=== PATIENT | male | born 1965 | race African-American/Black ===

== ENCOUNTER → 2020-08-12 10:51 | Outpatient (REF) | payer MEDICARE, MEDICAID, SELFPAY ==
--- NOTE | 2020-08-12 10:58 | CA_ITS ---
Acquisition Time: 2020-08-12 11:14:22 Total Exercise Time: 00:08:39 Test Indications: CP Medications: SEE CHART Protocol: NANDINI Max HR: 141 BPM 83% of Pred: 168 BPM Max BP: 172/088 mmHG Max Work Load: 10.1 METS Exercise stress ECHO using Nandini protocol total of 8 min 39 sec. METS. 10.1. Pt tolerated well, denies any anginal sx. EKG with no arrhythmias, no ischemic changes. EHO images taken at rest and imediately post peak exercise HR achieved. 86 %. THR. Definity IV used. Normotensive response to exercise. Test reviewed with Dr. Gupta STRESS ECHO : Technique : Images were obtained at rest and immediately post exercise within 36 seconds. Definity contrast was used to enhance endocardial definition. Images were obtained in multiple views and compared side to side. Findings : At rest images were of excellent quality. LV systolic function is normal with normal wallmotion. Post exercise images are of adeuqate quality. There is appropriate augmentation of overall LV systolic function with no regional wall motion abnormality. Conclusion : Stress echo negative for ischemia Referred By: Cecilio Ramirez Overread By: SARBJIT DEXTER MD
== END ==
LOC: HO.CARD 10:51
PROVIDERS: PCP Nurse Practitioner Family; Visit Provider Nurse Practitioner Family
DX: R07.89 Other chest pain (principal)
CPT/HCPCS: 93350; Q9957

== ENCOUNTER 2021-09-14 08:22 | Outpatient (REF) | payer OTHER, SELFPAY ==
[2021-09-14 11:50] LABS: Alanine Aminotransferase 38 U/L (0-40); Albumin Level 4.4 g/dL (3.5-5.0); Alkaline Phosphatase 70 U/L (39-117); Anion Gap 12 (12-20); Aspartate Amino Transferase 31 U/L (5-37); Bilirubin Total 0.6 mg/dL (0.0-1.0); Blood Urea Nitrogen 17 mg/dL (9-16); Calcium 9.6 mg/dL (8.4-10.2); Carbon Dioxide 26 mmol/L (22-29); Chloride 108 mmol/L (96-108); Cholesterol 213 mg/dL; Estimated Glomerular Filt Rate > 60; Glucose Fasting 91 mg/dL (60-99); HDL Cholesterol 56 mg/dL; LDL Cholesterol Calculated 126 mg/dl; Potassium 4.3 mmol/L (3.3-5.1); Sodium 142 mmol/L (135-145); Triglycerides 158 mg/dL
[2021-09-14 11:57] LABS: Prostate Specific Antigen Scr 0.77 ng/mL (<0.05-4.0); TSH reflex Free T4 0.74 uIU/mL (0.32-4.0)
== END 2021-09-14 08:23 | disposition home or self-care (01) ==
LOC: HO.HMGCLDS 08:22
PROVIDERS: PCP Nurse Practitioner Family; Visit Provider Nurse Practitioner Family
DX: Z12.5 Encounter for screening for malignant neoplasm of prostate (principal); R07.89 Other chest pain; I10 Essential (primary) hypertension
CPT/HCPCS: 36415; 80053; 80061; 84153; 84443

== ENCOUNTER → 2023-03-27 08:34 | Outpatient (REF) | payer OTHER, SELFPAY ==
--- NOTE | ~2023-03-27 | NM_ITS ---
Myocardial perfusion study Indication: Chest pain to evaluate for myocardial ischemia Technique: The patient was brought in for a Lexiscan perfusion study on 03/27/2023. Patient performed low-level exercise and was injected 0.4 mg of Lexiscan intravenously. Within a minute of injection, 25 mCi of sestamibi was given intravenously. Images were obtained using the SPECT gamma camera interlaced with the gating device. Images were obtained in supine position. Resting perfusion study was performed on 03/29/2023. Patient was administered 25 mCi of sestamibi intravenously at rest. Images were then obtained in supine position. Images obtained with and without CT attenuation. Total DLP 78 mGy-cm. Images were processed with the software and compared side to side in short axis, horizontal long axis and vertical long axis views. Findings: Both stress and rest perfusion study is suboptimal due to intense subdiaphragmatic uptake interfering with inferior wall uptake The stress perfusion study showed non attenuated images show mildly reduced uptake in the inferoseptum and basal and mid inferior wall of the LV myocardium. Remainder of the LV myocardium is normally perfused. Attenuation corrected images show mildly reduced uptake in the anterior wall and moderately reduced uptake in the apex of the LV myocardium.. The gated study shows normal LV systolic function with calculated LVEF of 65%. LV cavity is normal in size. The gated study shows normal systolic wall thickening and contraction of segments. Resting study shows non attenuated images show improved uptake in the septum and inferior wall of the LV myocardium. Attenuation corrected images show no change in perfusion pattern.. Gating at rest reveals normal systolic wall motion with ejection fraction at 48%. The findings are consistent with possible inferoseptal and inferior wall ischemia.. NM/NM cardiolite stress test Impression: 1. Myocardial perfusion imaging study shows equivocal for inferoseptal and inferior ischemia 2. Gated LVEF is 65% 3. Transient ischemic dilatation not present EKG is nondiagnostic for ischemia
--- NOTE | 2023-03-27 09:56 | CA_ITS ---
Acquisition Time: 2023-03-27 09:03:54 Total Exercise Time: 00:02:00 Test Indications: CP Medications: SEE H Protocol: LEXISCAN Max HR: 122 BPM 73% of Pred: 165 BPM Max BP: 170/110 mmHG Max Work Load: 1.0 METS Pharmacological stress test with Lexiscan injection, while sitting and kicking his left leg, without anginal symptoms, without arrythmia, with normotensive response to injection, with nondiagnostic EKG for ischemia. Nuclear images pending. Test reviewed with Dr Washington Referred By: Cecilio Ramirez Overread By: GERMAN BURGOS
== END ==
LOC: HO.CARD 08:34
PROVIDERS: PCP Nurse Practitioner Family; Visit Provider Nurse Practitioner Family
DX: R07.89 Other chest pain (principal); I10 Essential (primary) hypertension; F17.200 Nicotine dependence, unspecified, uncomplicated
CPT/HCPCS: 78452; 93017; A9500; J0280; J2785

== ENCOUNTER → 2023-03-29 08:31 | Outpatient (REF) | payer OTHER, SELFPAY ==
--- NOTE | 2023-03-29 08:35 | CA_ITS ---
Transthoracic Echocardiogram Patient (Last, First, Middle): Godwin Vickers, Gender: Male Date of : 1965 Age: 57 Procedure Date: 03/29/2023 Procedure Type: Transthoracic Echocardiogram Location: OP Height: 165.1 cm Weight: 72.58 kg BSA: 1.80 m2 Heart Rate: bpm BP: 150 / 98 mmHg Motocross Racer: TO Referring MD: Cecilio Ramirez [facility] [place]: Dontrell Washington MD Symptoms: R07.89 - Other chest pain Study Quality: Adequate ECG Rhythm: Sinus Conclusions: - Normal study Findings Left Ventricle Normal left ventricular size, thickness, and systolic function. The visually estimated ejection fraction is between 65-70%. Spectral Doppler is indicative of a normal filling pattern. Peak GLS is -21.2%, within normal limits. Right Ventricle Normal right ventricular cavity size and systolic function. Atria Both atria are normal in size. There is no evidence of interatrial shunt. Aortic Valve Normal aortic valve structure and function. There is no aortic valve stenosis. There is no aortic valve regurgitation. Mitral Valve Normal mitral valve structure and function. There is trace mitral valve regurgitation. There is no mitral valve stenosis. Pulmonic Valve The pulmonic valve is likely normal. Tricuspid Valve Normal tricuspid valve structure. Tricuspid regurgitation envelope is inadequate for calculation of right ventricular systolic pressure. Normal right atrial pressure. Great Vessels All visible segments of the aorta are normal in size. The pulmonary artery was not well visualized. Venous The inferior vena cava is normal in size and collapses greater than 50% with inspiration. Pericardium/Pleural There is no evidence of pericardial effusion. Prior Study Comparison No prior study available for comparison. Measurements 2D Linear Measurements IVSd: 1.11 0.6-0.9/0.6-1.0 cm LVIDd: 4.40 3.9-5.3/4.2-5.9 cm LVIDd Index: 2.44 2.4-3.2/2.2-3.1 cm/m2 LVIDs: 2.63 2.0-3.6 cm LVPWd: 0.94 0.7-1.1 cm LA Diam: 3.00 2.7-3.8/3.0-4.0 cm LAIDs Index: 1.67 1.5-2.3 cm/m2 LV Mass: 190.61 67-162/88-224 g LV Mass Index: 105.89 43-95/49-115 g/m2 LVOT Diam: 2.10 3.0+(-)1.3 cm 2D Systolic Function EF 4C: 66.90 >55% EF 2C: 70.00 >55% EF BiP: 67.50 >55% Mitral Valve MV Pk E: 0.73 MV PK A: 0.75 MV Decel Time: 238.00 E/A: 1.00 E'Lateral: 13.20 E'Medial: 8.05 E/E' Med: 9.10 E/E' Lat: 5.60 PHT: 71.00 MVA PHT: 3.10 Decel Ashley: 3.00 Aortic Valve AoV Pk Ernesto: 1.35 AoV Mn Ernesto: 0.92 AoV VTI: 0.26 AoV Pk Grad: 7.00 Aov Mn Grad: 4.00 SID Cont.VTI: 3.47 LVOT LVOT Pk Ernesto: 1.42 LVOT Mn Ernesto: 0.94 LVOT VTI: 0.26 LVOT Pk Grad: 8.00 LVOT Mn Grad: 4.00 LVOT Diam: 2.10 LVOT Area: 3.46 Diastolic Function MV Pk E: 0.73 MV Pk A: 0.75 E/A: 1.00 E'Medial: 8.05 E/E' Med: 9.10 E' Laterial: 13.20 E/E' Lat: 5.60 Right Ventricle TAPSE (mm): 25.60 TVS' Ernesto: 13.70 Tricuspid Valve RA Press: 3.00 Great Vessels Aorta Sinus of Valsalva: 3.33 2.0-3.5 cm Ao Asc: 3.10 2.1-3.4 cm Updated in Other Vendor System with Status of Final Dontrell Washington MD electronically signed on 03/30/2023 11:07:42 AM with status of Final
== END ==
LOC: HO.CARD 08:31
PROVIDERS: PCP Nurse Practitioner Family; Visit Provider Nurse Practitioner Family
DX: R07.89 Other chest pain (principal); I10 Essential (primary) hypertension; F17.200 Nicotine dependence, unspecified, uncomplicated
CPT/HCPCS: 93306

== ENCOUNTER 2023-04-05 09:25 | Outpatient (REF) | payer OTHER, SELFPAY ==
--- NOTE | ~2023-04-05 | XR_ITS ---
EXAMINATION: XR KNEE, RIGHT CLINICAL INFORMATION: Pain COMPARISON: None available. TECHNIQUE: Four views of the right knee. FINDINGS: There is no evidence of acute fracture or dislocation of the right knee. The right knee joint spaces appear maintained. There is a right knee effusion present. There is a patella spur site of insertion of the quadriceps tendon. There are some prominent soft tissue density involving the inferior patella tendon in the region of the tibial tuberosity. XR/XR knee RT 4V IMPRESSION: Right knee effusion without significant bony abnormality appreciated.
[2023-04-05 11:14] LABS: MANUAL DIFF FLAG NO
[2023-04-05 11:25] LABS: Basophils Absolute Auto 0.1 X10*3/uL (0.0-0.2); Basophils Percent Auto 0.6 % (0-2); Eosinophils Percent Auto 0.3 % (0-4); Hematocrit 37.5 % (42.0-52.0); Hemoglobin 12.9 g/dl (14.0-18.0); Imm Gran Abs Auto 0.06 X10*3/uL (0.00-0.03); Imm Gran Pct Auto 0.8 % (0.0-0.4); Lymphocytes Absolute Auto 2.2 X10*3/uL (1.2-4.9); Lymphocytes Percent Auto 27.5 % (20-40); Mean Corpuscular HGB Conc 34.4 g/dl (31.0-36.0); Mean Corpuscular Hemoglobin 28.9 pg (27.0-33.0); Mean Corpuscular Volume 84.1 fL (80.0-98.0); Mean Platelet Volume 8.8 fL (9.4-12.4); Monocytes Absolute Auto 0.9 X10*3/uL (0.1-1.2); Monocytes Percent Auto 11.1 % (2-11); Neutrophils Absolute Auto 4.7 x10*3/uL (2.0-8.3); Neutrophils Percent Auto 59.7 % (45-73); Platelet Count 311 X10*3/uL (160-400); Red Blood Count 4.46 X10*6/uL (4.60-5.80); Red Cell Distribution Width 13.2 % (11.0-16.0); White Blood Count 7.8 X10*3/uL (4.8-10.8)
[2023-04-05 11:26] LABS: Appearance Urine Clear; Color Urine Yellow; Glucose Urine UA Negative (Negative); Leukocyte Esterase Urine Negative (Negative); Nitrite Urine Negative (Negative); PH 5.5 (5.0-9.0); Specific Gravity - Urine 1.015 (1.005-1.025); Urine Blood Negative (Negative); Urine Ketones Negative (Negative); Urine Protein Negative (Neg-Trace)
[2023-04-05 12:02] LABS: Alanine Aminotransferase 26 U/L (0-40); Albumin Level 4.6 g/dL (3.5-5.0); Alkaline Phosphatase 64 U/L (39-117); Anion Gap 13 (12-20); Aspartate Amino Transferase 38 U/L (5-37); Bilirubin Total 0.7 mg/dL (0.0-1.0); Blood Urea Nitrogen 13 mg/dL (9-16); Calcium 10.1 mg/dL (8.4-10.2); Carbon Dioxide 25 mmol/L (22-29); Chloride 106 mmol/L (96-108); Cholesterol 226 mg/dL; Estimated Glomerular Filt Rate > 60; Glucose Fasting 87 mg/dL (60-99); HDL Cholesterol 76 mg/dL; LDL Cholesterol Calculated 128 mg/dl; Potassium 4.3 mmol/L (3.3-5.1); Sodium 140 mmol/L (135-145); Total Protein 7.3 g/dL (6.5-8.0); Triglycerides 113 mg/dL
[2023-04-05 12:15] LABS: Prostate Specific Antigen Scr 0.78 ng/mL (<0.05-4.0)
[2023-04-05 12:22] LABS: TSH reflex Free T4 0.52 uIU/mL (0.32-4.0)
== END 2023-04-05 09:26 | disposition home or self-care (01) ==
LOC: HO.HMGCX 09:25
PROVIDERS: PCP Nurse Practitioner Family; Visit Provider Nurse Practitioner Family
DX: Z12.5 Encounter for screening for malignant neoplasm of prostate (principal); M25.561 Pain in right knee; I10 Essential (primary) hypertension; E78.5 Hyperlipidemia, unspecified; F17.200 Nicotine dependence, unspecified, uncomplicated
CPT/HCPCS: 36415; 73564; 80053; 80061; 81003; 84153; 84443; 85025

== ENCOUNTER → 2023-04-06 10:17 | Outpatient (BNVA) | payer OTHER, SELFPAY | PROVIDERS: PCP Nurse Practitioner Family; Visit Provider Orthopaedic Surgery | DX: S83.241A Other tear of medial meniscus, current injury, right knee, initial encounter (principal) | CPT/HCPCS: 99202 ==

== ENCOUNTER 2023-04-14 08:56 | Outpatient (REF) | payer OTHER, SELFPAY ==
--- NOTE | ~2023-04-14 | US_ITS ---
EXAMINATION: US ABDOMEN COMPLETE CLINICAL INFORMATION: Abnormal levels of other serum enzymes. COMPARISON: Renal ultrasound 05/03/2017. TECHNIQUE: Real-time imaging of the abdominal viscera. FINDINGS: PANCREAS: Normal. ABDOMINAL AORTA: The proximal, mid, and distal segments are normal in caliber. INFERIOR VENA CAVA: Visualized portions are normal. LIVER: Normal. The liver is normal in size. The liver contour is normal. Parenchymal echogenicity is normal. No focal hepatic lesion. There is no intrahepatic biliary duct dilatation seen. GALLBLADDER: Normal. The gallbladder is physiologically distended without evidence of stones, sludge, polyps, wall thickening or pericholecystic fluid. COMMON BILE DUCT: Normal in caliber measuring 0.31 cm in diameter. RIGHT KIDNEY: Normal. No hydronephrosis. No renal calculi or focal parenchymal lesions. The kidney measures 11.1 cm in maximum dimension. LEFT KIDNEY: Normal. No hydronephrosis. No renal calculi or focal parenchymal lesions. The kidney measures 10.8 cm in maximum dimension. SPLEEN: Normal. The spleen measures 7.6 cm in maximum dimension. FREE FLUID: None. US/US abdomen complete IMPRESSION: Unremarkable abdominal ultrasound.
== END 2023-04-14 08:57 | disposition home or self-care (01) ==
LOC: HO.HMGCX 08:56
PROVIDERS: PCP Nurse Practitioner Family; Visit Provider Nurse Practitioner Family
DX: R74.8 Abnormal levels of other serum enzymes (principal)
CPT/HCPCS: 76700

== ENCOUNTER 2023-05-16 08:25 | Outpatient (REF) | payer OTHER, SELFPAY ==
[2023-05-16 11:04] LABS: Alanine Aminotransferase 108 U/L (0-40); Albumin Level 4.9 g/dL (3.5-5.0); Alkaline Phosphatase 72 U/L (39-117); Anion Gap 20 (12-20); Aspartate Amino Transferase 151 U/L (5-37); Bilirubin Total 0.6 mg/dL (0.0-1.0); Blood Urea Nitrogen 12 mg/dL (9-16); C Reactive Protein 0.15 mg/dL (< or = 0.50); Calcium 10.2 mg/dL (8.4-10.2); Carbon Dioxide 22 mmol/L (22-29); Chloride 101 mmol/L (96-108); Cholesterol 201 mg/dL; Estimated Glomerular Filt Rate > 60; Glucose Fasting 80 mg/dL (60-99); HDL Cholesterol 94 mg/dL; LDL Cholesterol Calculated 94 mg/dl; Sodium 139 mmol/L (135-145); Total Protein 7.7 g/dL (6.5-8.0); Triglycerides 69 mg/dL
[2023-05-17 04:20] LABS: HBS Num1 0.29 mIU/mL (0-7.99); HBc Num1 0.07 S/CO (0.00-0.79); HBsAGNum1 0.33 S/CO (0.00-0.99); Hepatitis A Antibody IgM 0.17 Index (0-0.79); Hepatitis B Core Antibody Nonreactive (Nonreactive); Hepatitis B Surface Antigen Negative (Negative); ~HepC Num1 0.06 S/CO (0.00-0.79); ~Hepatitis A Antibody IgM Nonreactive (Nonreactive); ~Hepatitis B Surface Antibody NONREACTIVE (Nonreactive); ~Hepatitis C Antibody Nonreactive (Nonreactive)
== END 2023-05-16 08:26 | disposition home or self-care (01) ==
LOC: HO.LAB 08:25
PROVIDERS: PCP Nurse Practitioner Family; Visit Provider Nurse Practitioner Family
DX: K58.9 Irritable bowel syndrome, unspecified (principal); R78.4 Finding of other drugs of addictive potential in blood; E78.5 Hyperlipidemia, unspecified
CPT/HCPCS: 36415; 80053; 80061; 86140; 86704; 86706; 86709; 86803; 87340

== ENCOUNTER 2023-06-05 07:14 | Outpatient (REF) | payer OTHER, SELFPAY ==
--- NOTE | ~2023-06-05 | MR_ITS ---
EXAMINATION: MR KNEE WITHOUT CONTRAST, RIGHT CLINICAL INFORMATION: Chronic right knee pain. Evaluate for a medial meniscal tear. COMPARISON: Right knee radiographs dated 04/05/2023. TECHNIQUE: MRI of the knee without contrast was performed using routine sequences on a high-field scanner. FINDINGS: MENISCI: Medial Meniscus: Mild degenerative intrasubstance signal within the posterior meniscal body and posterior horn without definite articular surface tearing. Lateral Meniscus: Intact. LIGAMENTS: Cruciate: Intact. Collateral: Intact. EXTENSOR MECHANISM: Intact. ARTICULAR CARTILAGE/BONE: Patellofemoral Compartment: Focal articular cartilage fissuring and signal heterogeneity at the inferior aspect of the medial patellar facet with minimal subchondral cystic change. Medial Compartment: Weightbearing medial femoral condyle articular cartilage thinning with areas of [id number] loss. Tiny marginal osteophytes. Lateral Compartment: Posterior weightbearing lateral femoral condyle articular cartilage signal heterogeneity with tiny marginal osteophytes. JOINT FLUID AND BURSAE: Moderate joint effusion. Lobulated synovitis versus loose body within the popliteus tendon sheath measuring up to 1.8 cm. MR/MR knee RT wo con IMPRESSION: 1. Mild degenerative intrasubstance signal within the posterior medial meniscal body and posterior horn without definite articular surface tearing. 2. Mild tricompartmental osteoarthritis. Moderate joint effusion. Lobulated synovitis versus loose body within the popliteus tendon sheath measuring up to 1.8 cm.
== END 2023-06-05 07:15 | disposition home or self-care (01) ==
LOC: HO.MRI 07:14
PROVIDERS: PCP Nurse Practitioner Family; Visit Provider Physician Assistant
DX: S83.241A Other tear of medial meniscus, current injury, right knee, initial encounter (principal)
CPT/HCPCS: 73721

== ENCOUNTER 2023-06-08 07:50 | Outpatient (AMB) | payer OTHER, SELFPAY ==
[2023-06-08 07:55] VITALS: BP 140/92; PULSE 69; O2SAT 100; BMI 25.0
--- NOTE | 2023-06-08 07:55 | MHC.PC.OV ---
Vital Signs 06/08/23 07:55 Height 5 ft 5 in Weight 150 lb BMI 25.0 BP 140/92 H Blood Pressure Location Rt brachial Position Sitting Pulse 69 Pulse Source Pulse Oximeter Pulse Oximetry (%) 100 Oxygen Delivery Method Room Air Intake Visit Reasons: PE Allergies No Known Allergies [No Known Allergies*] Allergy (Verified 06/08/23 07:57) Medication List - Last Reconciled 06/08/23 by REBECCA AshrafP- amlodipine 10 mg PO DAILY bisacodyl (Dulcolax (bisacodyl)) 10 mg (2 x 5 mg) PO ONCE 1 day carvedilol (Coreg) 3.125 mg PO BID 30 days fluoxetine 40 mg PO DAILY losartan 50 mg PO DAILY polyethylene glycol 3350 (Miralax) 238 grams PO ONCE Tobacco use date assessed: 06/08/23 Dental Screening Dental Screen Date: 06/08/23 Did you have a dental visit in the last 12 months?: No Did you have a dental problem in the last 6 months where you did not have access to dental care?: No Was dental information given to patient?: No HPI PE HPI Details Pt is here for a PE. Will order labs. Pt is seeing GI for his colon screen. HTN: Blood pressure is managed with amlodipine 10mg and losartan 50mg. Pt reports that his blood pressure at home is in the 140s/90s. Will start carvedilol 3.125mg bid. Will have pt continue to monitor BP at home. Pt has been a PPD smoker since age 22, will refer for low-dose CT. Pt c/o increased anxiety. He is currently taking fluoxetine 40mg. Explained to pt that carvedilol may help, pt will keep me posted on this. Denies any SI and HI. [facility] Medical History Anxiety and depression Chest pressure Depression Dislocation of right shoulder joint History of ATN HTN (hypertension) Smoker Stuttering Surgical History No pertinent past surgical history Family History Mother Breast cancer HTN (hypertension) Father Unknown family medical history Social History Household Members Other:: lives alone Housing: Apartment Alcohol intake: current Alcohol intake frequency: does not drink Patient Tobacco Use Status: Current everyday Tobacco user Cigarette Packs Per Day: 1 e-Cigarette/Vaping Use: Never Used Second Hand Smoke Exposure: No Current occupational status: unemployed and disabled 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 Lj Sheridan, Olga Leung, Miky Delaney and colleagues, with an educational broderick from [employer]. Review of Systems Const Denies chills and Denies fever(s) Eyes Denies blurry vision ENT Denies vertigo, Denies dizziness and Denies sore throat Card Denies chest pain at rest, Denies chest pain with activity, Denies diaphoresis, Denies dyspnea and Denies dyspnea on exertion Resp Denies cough, Denies dyspnea, Denies dyspnea on exertion and Denies wheezing GI Denies abdominal pain, Denies melena, Denies hematochezia, Denies constipation, Denies diarrhea and Denies loose stools Denies hematuria Musc Denies numbness and Denies tingling Skin/Breast Denies lesions Neuro Denies vertigo, Denies dizziness, Denies numbness and Denies tingling Psych Reports anxiety, Denies depression, Denies homicidal ideation, Denies suicidal ideation and Denies other (substance abuse) Aller/Immun Denies wheezing Physical exam (Primary Care) Vital Signs: Last Vital Signs Pulse 69 06/08/23 07:55 BP 140/92 H 06/08/23 07:55 Pulse Ox 100 06/08/23 07:55 Oxygen Delivery Method Room Air 06/08/23 07:55 BMI result Body Mass Index 25.0 Tobacco/Smoking Status: Tobacco use Status Tobacco use date assessed 06/08/23 06/08/23 08:00 Patient Tobacco Use Status Current everyday Tobacco 06/08/23 08:00 e-Cigarette/Vaping Use Never Used 06/08/23 08:00 Thrive Assessment: Date of Thrive Assessment Date Thrive assessed 03/02/23 06/08/23 08:00 Const General: cooperative Nutritional Appearance: well nourished Orientation/consciousness: patient oriented x3 HENMT Other: cerumen noted bilat, after ear lavage TMs easily seen Head: Yes normal to inspection, Yes normocephalic and Yes atraumatic Eyes General: appearance normal, both eyes and all related structures Alignment and Position: alignment normal and position normal Neck Neck: Yes normal visual inspection and Yes no lymphadenopathy Thyroid: Thyroid normal Resp Effort & Inspection: normal respiratory effort Auscultation: clear to auscultation bilaterally Cardio Rate: regular rate Rhythm: regular rhythm Heart sounds: S1 normal heart sound present, S2 normal heart sound present and no murmurs GI Palpation (GI): Soft to palpation and nontender Auscultation: normal bowel sounds Male General Exam: Yes normal external exam Penis: normal penis Scrotum: scrotum normal, testes descended bilaterally and no inguinal hernias Testes: no testicular mass Skin Rashes: no rashes Neuro General: patient oriented x3, moves all extremities, no focal motor deficits and deep tendon reflexes 2+ bilaterally Romberg Test: Negative Psych Appearance: grossly normal Mental Status: mental status grossly normal Speech and movement: Normal speech and movement present Affect: normal affect Attitude: cooperative Thought process: Normal thought process present Thought content: Normal thought content present Insight: Good insight present (Psych) Judgement: Good judgement present (Psych) Office Procedures Cerumen Removal From which ear canal was the cerumen removed: bilateral Removal: irrigation Notes: patient tolerated procedure well and no complications [id number] Irrigation/Lavage Assessment and Plan Assessment & Plan (1) Smoker: Code(s): F17.200 - Nicotine dependence, unspecified, uncomplicated Plan: Referred for low-dose CT (2) Physical exam: Code(s): Z00.00 - Encounter for general adult medical examination without abnormal findings Plan: Labs ordered (3) Excessive cerumen in both ear canals: Code(s): H61.23 - Impacted cerumen, bilateral Plan The patient agreed to the use of a medical transcriptionist for this encounter. Scribed for NORMA Galindo by Lacy Roper medical transcriptionist, on 06/08/2023 at 08:10 EST. Orders: Orders Comprehensive [place]. Panel Fast Today Z00.00 - Encounter for general adult medical examination without abnormal findings Lipid Panel Today Z00.00 - Encounter for general adult medical examination without abnormal findings TSH reflex Free T4 Today Z00.00 - Encounter for general adult medical examination without abnormal findings Complete Blood Count Auto Diff Today Z00.00 - Encounter for general adult medical examination without abnormal findings UA CC w/rflx Micro + Cult Today Z00.00 - Encounter for general adult medical examination without abnormal findings Referrals Thoracic Surgery Referral F17.200 - Nicotine dependence, unspecified, uncomplicated Medications: New carvedilol (Coreg) must administer with a meal/food 3.125 mg PO BID 30 days 60 tabs 0RF Refilled fluoxetine 40 mg PO DAILY 90 caps 1RF F32.9 - Major depressive disorder, single episode, unspecified, F41.9 - Anxiety disorder, unspecified losartan 50 mg PO DAILY 90 tabs 1RF Coding Level of Care Code Est Pt Prev Care 40-64y(82887) Diagnoses Smoker F17.200 Physical exam Z00.00 Excessive cerumen in both ear canals H61.23 CPT Codes Office Procedure - CPT: 85395-Vkp Irrigation/Lavage ([id number])
== END 2023-06-08 08:32 | disposition home or self-care (01) ==
PROVIDERS: PCP Nurse Practitioner Family; Visit Provider Nurse Practitioner Family
DX: Z00.00 Encounter for general adult medical examination without abnormal findings (principal); F17.210 Nicotine dependence, cigarettes, uncomplicated; H61.23 Impacted cerumen, bilateral
CPT/HCPCS: 69209; 99396

== ENCOUNTER 2023-06-08 08:33 | Outpatient (REF) | payer OTHER, SELFPAY ==
[2023-06-08 11:25] LABS: MANUAL DIFF FLAG NO
[2023-06-08 11:49] LABS: Basophils Absolute Auto 0.1 X10*3/uL (0.0-0.2); Basophils Percent Auto 0.6 % (0-2); Eosinophils Absolute Auto 0.2 X10*3/uL (0.0-0.4); Eosinophils Percent Auto 1.9 % (0-4); Hematocrit 38.8 % (42.0-52.0); Hemoglobin 13.2 g/dl (14.0-18.0); Imm Gran Abs Auto 0.05 X10*3/uL (0.00-0.03); Imm Gran Pct Auto 0.6 % (0.0-0.4); Lymphocytes Absolute Auto 1.8 X10*3/uL (1.2-4.9); Lymphocytes Percent Auto 23.2 % (20-40); Mean Corpuscular Volume 85.3 fL (80.0-98.0); Mean Platelet Volume 9.6 fL (9.4-12.4); Monocytes Percent Auto 12.4 % (2-11); Neutrophils Absolute Auto 4.9 x10*3/uL (2.0-8.3); Neutrophils Percent Auto 61.3 % (45-73); Platelet Count 329 X10*3/uL (160-400); Red Blood Count 4.55 X10*6/uL (4.60-5.80); Red Cell Distribution Width 13.2 % (11.0-16.0); White Blood Count 7.9 X10*3/uL (4.8-10.8)
== END 2023-06-08 08:34 | disposition home or self-care (01) ==
LOC: HO.HMGCLDS 08:33
PROVIDERS: PCP Nurse Practitioner Family; Visit Provider Nurse Practitioner Family
DX: R74.8 Abnormal levels of other serum enzymes (principal)
CPT/HCPCS: 36415; 85025

== ENCOUNTER 2023-06-13 08:23 | Outpatient (REF) | payer OTHER, SELFPAY ==
--- NOTE | ~2023-06-13 | US_ITS ---
EXAMINATION: US ABDOMEN LIMITED CLINICAL INFORMATION: Elevated liver enzymes. COMPARISON: Ultrasound abdomen complete 04/14/2023. Renal ultrasound 05/03/2017. TECHNIQUE: Real-time imaging of the right upper quadrant abdominal viscera. FINDINGS: LIVER: Normal. The liver is normal in size. The liver contour is normal. Parenchymal echogenicity is normal. No focal hepatic lesion. There is no intrahepatic biliary duct dilatation seen. There is hepatopedal portal venous flow. GALLBLADDER: There is mild layering sludge. The gallbladder is physiologically distended without evidence of stones, polyps, wall thickening or pericholecystic fluid. COMMON BILE DUCT: Normal in caliber measuring 0.4 cm in diameter. FREE FLUID: None. US/US abdomen limited IMPRESSION: Unremarkable examination.
== END 2023-06-13 08:24 | disposition home or self-care (01) ==
LOC: HO.HMGCX 08:23
PROVIDERS: PCP Nurse Practitioner Family; Visit Provider Nurse Practitioner Family
DX: R74.8 Abnormal levels of other serum enzymes (principal)
CPT/HCPCS: 76705

== ENCOUNTER 2023-06-18 19:31 | Emergency (ER) | payer OTHER, SELFPAY ==
[2023-06-18 19:37] VITALS: BP 151/99; PULSE 85; RESP 16; TEMP 36.9; O2SAT 97; BMI 25.8
== END 2023-06-18 21:41 | disposition left against medical advice (07) ==
LOC: HO.ED 21:36
PROVIDERS: Emergency Provider Emergency Medicine; PCP Nurse Practitioner Family
DX: H57.12 Ocular pain, left eye (principal)
CPT/HCPCS: 99281

== ENCOUNTER 2023-06-19 07:49 | Emergency (ER) | payer OTHER, SELFPAY ==
--- NOTE | ~2023-06-19 | CT_ITS ---
EXAMINATION: CT ORBIT WITH CONTRAST CLINICAL INFORMATION: Right facial swelling status post bee sting. COMPARISON: 03/24/2019 TECHNIQUE: Multidetector volumetric imaging was obtained through the orbits following intravenous demonstration of 85 mL Omnipaque 350. Multiplanar reformatted images in coronal and sagittal orientations were submitted. This CT examination was performed using dose optimization techniques as appropriate, variously including the following: *Automated exposure control *Adjustment of mA and/or kV according to patient size (this includes techniques or standardized protocols for targeted exams where dose is matched to indication/reason for exam; i.e. extremities or head) *Use of iterative reconstruction technique DLP: 288 mGy-cm FINDINGS: There is marked right periorbital and prezygomatic soft tissue swelling and subcutaneous fat stranding. No discrete, organized fluid collections are identified. These findings are preseptal in location without post septal involvement of the orbits. No retrobulbar abnormalities. Globes appear symmetric. Extraocular muscles are symmetric. Paranasal sinuses appear clear. Rightward deviation of nasal septum is unchanged. Left jona bullosa. Imaged nasopharynx and oropharynx are unremarkable. Imaged intracranial tissues are normal. Vasculature appears patent. Focal lucency in the alveolar bone anterior cortex of the left maxilla in the region of the premolars appears unchanged from prior. The adjacent tooth is now absent. CT/CT orbit BI w IV con IMPRESSION: Marked right periorbital and prezygomatic soft tissue swelling and subcutaneous fat stranding, most consistent with known soft tissue reaction. No post septal involvement of the right orbit. No discrete fluid collections.
[2023-06-19 07:50] VITALS: BP 152/92; PULSE 70; RESP 18; TEMP 36.6; O2SAT 100; BMI 24.6
--- NOTE | 2023-06-19 08:05 | ED_ITS ---
HPI - Allergic Reaction General Chief complaint: Allergic Reaction Stated complaint: bee sting facial swelling Time Seen by Provider: 06/19/23 07:56 Source: patient Mode of arrival: ambulatory Limitations: no limitations History of Present Illness HPI narrative: 57 yo male with PMHx significant for anxiety, depression, & HTN presents to the ED today with right sided facial swelling s/p bee sting to R eye brow 15 hours ago. Reports immediate facial swelling after bee sting, worsening over night and upon waking this morning. Cannot open the R eye. Reports taking Benadryl without relief. Denies blurred vision or double vision, chest pain or SOB, rash or hives, difficulty breathing or swallowing, throat swelling, nausea, vomiting, abd pain. Denies previous allergy or allergic reaction. Related Data Previous Rx's Medication Instructions Recorded bisacodyl 5 mg tablet,delayed 10 mg PO ONCE 1 day #2 tabs 05/16/23 release (Dulcolax (bisacodyl)) polyethylene glycol 3350 17 238 g PO ONCE #238 grams 05/16/23 gram/dose oral powder (Miralax) amlodipine 10 mg tablet 10 mg PO DAILY #90 tabs 05/30/23 fluoxetine 40 mg capsule 40 mg PO DAILY #90 caps 06/08/23 losartan 50 mg tablet 50 mg PO DAILY #90 tabs 06/08/23 carvedilol 3.125 mg tablet (Coreg) 3.125 mg PO BID #180 tabs 06/09/23 diphenhydramine HCl 25 mg capsule 25 mg PO TID PRN allergic reaction 06/19/23 (Benadryl) #20 caps epinephrine 0.3 mg/0.3 mL 0.3 mg (0.3 mL) IM Q4H PRN 06/19/23 injection, auto-injector (EpiPen anaphylaxis #2 ea 2-Dre) prednisone 20 mg tablet 40 mg PO DAILY 5 days #10 tabs 06/19/23 Allergies Allergy/AdvReac Type Severity Reaction Status Date / Time bee pollen [bee stings] Allergy Swelling Verified 06/19/23 07:54 Review of Systems Review of Systems: Constitutional : No Weight loss, No Fever, No Chills, No Fatigue, No Malaise ENT/Mouth : No sore throat, No Rhinorrhea, + R facial swelling Eyes: No Eye Pain, No Swelling, No Redness Cardiovascular : No Chest Pain, No SOB, No Dyspnea on Exertion, No Orthopnea, No Edema, No Palpitations Respiratory : No Cough, No Sputum, No Wheezing Gastrointestinal : No Nausea, No Vomiting, No Diarrhea, No Constipation, No abdominal Pain, No Hematochezia, No Melena Genitourinary : No Dysuria, No Urinary Frequency, No Hematuria, Musculoskeletal : No joint pain, No Myalgias, No Joint Swelling Skin : No Skin Lesions, No rash Neuro : No Weakness, No Numbness, No Dizziness, No Headache All other systems reviewed and are negative Yes all other systems are reviewed and are negative [facility] Past Medical History Attestation statement: The following information was validated with the patient. Source: old records reviewed and nursing notes reviewed Medical History Anxiety and depression Chest pressure Depression Dislocation of right shoulder joint History of ATN HTN (hypertension) Smoker Stuttering Surgical History No pertinent past surgical history Family History Family History Mother Breast cancer HTN (hypertension) Father Unknown family medical history Social History Social History Household Members Other:: lives alone Housing: Apartment Alcohol intake: current Alcohol intake frequency: does not drink Patient Tobacco Use Status: Current everyday Tobacco user Cigarette Packs Per Day: 1 e-Cigarette/Vaping Use: Never Used Second Hand Smoke Exposure: No Advance Directives: No Advance Directives Information Provided: No Current occupational status: unemployed and disabled 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 Oriented X3.? No acute distress.? Head: Normocephalic, atraumatic, no step-offs or deformities. Right facial and orbital swelling, unable to open the right eye. Eyes: Pupils equal, round and reactive to light.? CVS: Normal heart rate and rhythm.? Pulses normal.? Respiratory: No respiratory distress.? Breath sounds normal.?No wheezes. Abdomen: Soft and nontender.? Skin: Skin warm and dry.? Normal skin color.? Normal skin turgor.? Extremities: No lower extremity edema.? No calf ttp. 5/5 strength to bilateral upper and lower extremities Back: No midline tenderness, no C-spine tenderness, full range of motion, no CVA tenderness bilaterally Neuro: Oriented X 3.? No motor deficit.? No sensory deficit. CN 2-12 intact Course Reevaluation(s) Reevaluation #1: CBC with no acute findings. Chemistry unremarkable. Normal lactic acid. Bilirubin 1.2 however no abdominal tenderness to palpation. CT of the orbit with marked right periorbital and becky zygomatic soft tissue swelling and subcutaneous fat stranding, consistent with known soft tissue reaction. No postseptal involvement of the right orbit. No discrete fluid collection. Patient to be discharged home with prednisone, Benadryl and epi pens, I did have a discussion with patient explained to him how an EpiPen should be used in upon is use he should seek medical attention immediately. Will give him follow-up with Allergy and immunology. Educated patient on diagnosis and treatment plan, answered all question, patient verbalizes understanding. At this time patient will be discharged home, advised to return with new or worsening symptoms. Educated on worrisome signs and symptoms and when to return. At this time I feel comfortable discharge home. Time: 10:03 Medications Administered Discontinued Medications Generic Name Dose Route Start Last Admin Trade Name Bertha PRN Reason Stop Dose Admin Dexamethasone Sodium Phosphate 10 mg 06/19/23 07:57 06/19/23 08:27 Dexamethasone Sod Phosphate 10 Mg/Ml Vial IVPUSH 06/19/23 07:58 10 mg ONCE ONE Administration Diphenhydramine HCl 50 mg 06/19/23 07:57 06/19/23 08:26 Diphenhydramine Hcl 50 Mg/Ml Vial IVPUSH 06/19/23 07:58 50 mg ONCE ONE Administration Famotidine 20 mg 06/19/23 07:57 06/19/23 08:26 Famotidine/Pf 20 Mg/2 Ml Vial IVPUSH 06/19/23 07:58 20 mg ONCE ONE Administration Sodium Chloride 1,000 mls @ 999 mls/hr 06/19/23 08:15 06/19/23 08:25 Ns IV 06/19/23 09:15 999 mls/hr .Q1H1M TRACE Administration Iohexol 85 ml 06/19/23 09:12 06/19/23 09:13 Iohexol 350 Mg/Ml 100 Ml Infus..Btl IV 06/19/23 09:13 85 ml ONCE ONE Administration Medical Decision Making Medical Decision Making [facility] Narrative: 0800 57 yo male with R facial/ orbital swelling s/p bee sting 15 hours ago Exam notable for right facial/ orbital edema extending from the right eyebrow down to the right jawline, normal pharynx with uvula midline, speaking in full sentences, afebrile, nontoxic appearing, NAD, lungs CTA b/l. Clinical concern for allergic reaction vs orbital cellulitis vs periorbital cellulitis. Low suspicion for blow out fracture vs trauma vs globe rupture. Not consistent with conjunctivitis, glaucoma, sinus infection, PUMP INSTALLER, retropharyngeal abscess, anaphylaxis Plan- labs, imaging, decadron, benadryl. Differential Diagnosis Differential Diagnoses: The differential diagnosis associated with the presentation includes Clinical concern for allergic reaction vs orbital cellulitis vs periorbital c ellulitis. Low suspicion for blow out fracture vs trauma vs globe rupture. Not consistent with conjunctivitis, glaucoma, sinus infection, PUMP INSTALLER, retropharyngeal abscess, anaphylaxis Admission/Observation Consideration of admission/observation: Escalation of care including admission/observation considered Unlikley Lab Data [facility] Lab Attestation statement: I reviewed the patient's lab results. As above. 06/19/23 08:11 06/19/23 08:11 Labs: Lab Results 06/19/23 06/19/23 06/19/23 Range/Units 08:11 08:11 08:23 WBC 10.1 (4.8-10.8) X10*3/uL RBC 4.59 L (4.60-5.80) X10*6/uL Hgb 13.3 L (14.0-18.0) g/dl Hct 38.5 L (42.0-52.0) % MCV 83.9 (80.0-98.0) fL MCH 29.0 (27.0-33.0) pg MCHC 34.5 (31.0-36.0) g/dl RDW 13.0 (11.0-16.0) % Plt Count 309 (160-400) X10*3/uL MPV 8.8 L (9.4-12.4) fL Immature Gran % (Auto) 0.6 H (0.0-0.4) % Neut % (Auto) 64.7 (45-73) % Lymph % (Auto) 23.3 (20-40) % Otero % (Auto) 10.8 (2-11) % Eos % (Auto) 0.2 (0-4) % Baso % (Auto) 0.4 (0-2) % Lymph # (Auto) 2.3 (1.2-4.9) X10*3/uL Otero # (Auto) 1.1 (0.1-1.2) X10*3/uL Eos # (Auto) 0.0 (0.0-0.4) X10*3/uL Baso # (Auto) 0.0 (0.0-0.2) X10*3/uL Abs Immat Gran (auto) 0.06 H (0.00-0.03) X10*3/uL Absolute Neuts (auto) 6.5 (2.0-8.3) x10*3/uL Absolute Nucleated RBC 0.000 (0.0-0.012) X10*3/uL Nucleated RBC % (auto) 0.0 (0.0-0.2) /100WBC Sodium 139 (135-145) mmol/L Potassium 4.3 (3.3-5.1) mmol/L Chloride 105 (96-108) mmol/L Carbon Dioxide 24 (22-29) mmol/L Anion Gap 14 (12-20) BUN 11 (9-16) mg/dL Creatinine 0.94 (0.5-1.4) mg/dL Estim Creat Clear Calc 77.2 Estimated GFR > 60 Random Glucose 92 (60-115) mg/dL Lactic Acid 1.3 (0.5-2.0) mmol/L Calcium 10.2 (8.4-10.2) mg/dL Total Bilirubin 1.2 H (0.0-1.0) mg/dL AST 27 (5-37) U/L ALT 40 (0-40) U/L Alkaline Phosphatase 70 (39-117) U/L Total Protein 7.1 (6.5-8.0) g/dL Albumin 4.6 (3.5-5.0) g/dL Independent Interpretation I performed an independent interpretation of an: CT Scan Radiology Impression Discussion of test interpretation with radiology: I have reviewed the radiologist's reading. Radiologist Impression: CT orbit BI w IV con IMPRESSION: Marked right periorbital and prezygomatic soft tissue swelling and subcutaneous fat stranding, most consistent with known soft tissue reaction. No post septal involvement of the right orbit. No discrete fluid collections. Prescription Management I considered prescription management with: Other (antihistamine) Chronic Conditions Patient?s care impacted by: Hypertension Core Measures AMI core measures followed: Yes Measure exclusions: not indicated Critical Care Time Critical Care Time Critical Care Time: No Discharge Plan Discharge Clinical Impression: Allergic reaction Patient Disposition: Home, Self-Care Instructions: General Allergic Reaction (ED), Allergy Testing (ED) Additional Instructions: Take your medications as prescribed. If you were prescribed antibiotics today, it is important that you take your medication to their entirety, do not skip any doses, do not finish them early. Follow-up with your primary care provider this week. Return to the emergency department with new or worsening symptoms. Such as fevers, chills, chest pain, shortness of breath, nausea, vomiting, dizziness, headache, vision changes, lethargy In case of emergency call 911 Prescriptions: New diphenhydramine HCl [Benadryl] 25 mg capsule 25 mg PO TID PRN (Reason: allergic reaction) Qty: 20 0RF prednisone 20 mg tablet 40 mg PO DAILY 5 Days Qty: 10 0RF epinephrine [EpiPen 2-Dre] 0.3 mg/0.3 mL auto-injector 0.3 mg IM Q4H PRN (Reason: anaphylaxis) Qty: 2 0RF No Action amlodipine 10 mg tablet 10 mg PO DAILY Qty: 90 1RF carvedilol [Coreg] 3.125 mg tablet 3.125 mg PO BID Qty: 180 0RF Rx Instructions: must administer with a meal/food fluoxetine 40 mg capsule 40 mg PO DAILY Qty: 90 1RF losartan 50 mg tablet 50 mg PO DAILY Qty: 90 1RF bisacodyl [Dulcolax (bisacodyl)] 5 mg tablet,delayed release (DR/EC) 10 mg PO ONCE 1 Days Qty: 2 0RF Rx Instructions: take 2 tabs at noon the day before your colonoscopy polyethylene glycol 3350 [Miralax] 17 gram/dose powder 238 g PO ONCE Qty: 238 0RF Rx Instructions: As directed by gastroenterology department at [facility] Referrals: [facility] [Outside] - 2 days Stand Alone Forms: Work/School Release
[2023-06-19 08:15] LABS: MANUAL DIFF FLAG NO
[2023-06-19 08:17] LABS: Basophils Percent Auto 0.4 % (0-2); Eosinophils Percent Auto 0.2 % (0-4); Hematocrit 38.5 % (42.0-52.0); Hemoglobin 13.3 g/dl (14.0-18.0); Imm Gran Abs Auto 0.06 X10*3/uL (0.00-0.03); Imm Gran Pct Auto 0.6 % (0.0-0.4); Lymphocytes Absolute Auto 2.3 X10*3/uL (1.2-4.9); Lymphocytes Percent Auto 23.3 % (20-40); Mean Corpuscular HGB Conc 34.5 g/dl (31.0-36.0); Mean Corpuscular Volume 83.9 fL (80.0-98.0); Mean Platelet Volume 8.8 fL (9.4-12.4); Monocytes Absolute Auto 1.1 X10*3/uL (0.1-1.2); Monocytes Percent Auto 10.8 % (2-11); Neutrophils Absolute Auto 6.5 x10*3/uL (2.0-8.3); Neutrophils Percent Auto 64.7 % (45-73); Platelet Count 309 X10*3/uL (160-400); Red Blood Count 4.59 X10*6/uL (4.60-5.80); White Blood Count 10.1 X10*3/uL (4.8-10.8)
[2023-06-19] MEDS: 0.9 % Sodium Chloride 1,000 ML 999 ML IV (08:25)
[2023-06-19] MEDS: diphenhydrAMINE HCL 50 MG/ML VIAL IVPUSH (08:26)
[2023-06-19] MEDS: Famotidine/PF 20 MG/2 ML VIAL IVPUSH (08:26)
[2023-06-19] MEDS: dexAMETHasone sod phosphate 10 MG/ML VIAL IVPUSH (08:27)
[2023-06-19 08:35] LABS: Alanine Aminotransferase 40 U/L (0-40); Albumin Level 4.6 g/dL (3.5-5.0); Alkaline Phosphatase 70 U/L (39-117); Anion Gap 14 (12-20); Aspartate Amino Transferase 27 U/L (5-37); Bilirubin Total 1.2 mg/dL (0.0-1.0); Blood Urea Nitrogen 11 mg/dL (9-16); Calcium 10.2 mg/dL (8.4-10.2); Carbon Dioxide 24 mmol/L (22-29); Chloride 105 mmol/L (96-108); Creatinine Clr Calc Pharmacy 77.2; Estimated Glomerular Filt Rate > 60; Glucose Random 92 mg/dL (60-115); Potassium 4.3 mmol/L (3.3-5.1); Sodium 139 mmol/L (135-145); Total Protein 7.1 g/dL (6.5-8.0)
[2023-06-19 08:38] LABS: Lactic Acid 1.3 mmol/L (0.5-2.0)
--- NOTE | 2023-06-19 08:40 | PC.NURSE ---
alert and oriented, respirations even and unlabored. swelling noted s/p bee sting yesterday to right side of face. new allergy for pt. airway intact, no difficulty with swallowing or breathing 98% on room air. iv established by PA, medicated per the MAR. fluids infusing. awaiting ct scan at this time. call grady within reach.
[2023-06-19 08:48] VITALS: O2SAT 98
--- NOTE | 2023-06-19 08:48 | PC.NURSE ---
in CT scan at this time.
[2023-06-19] MEDS: iohexoL 350 MG/ML 100 ML INFUS..BTL 85 ML IV (09:13)
== END 2023-06-19 10:20 | disposition home or self-care (01) ==
PROVIDERS: Physician Assistant; Emergency Provider Emergency Medicine; PCP Nurse Practitioner Family
DX: T63.441A Toxic effect of venom of bees, accidental (unintentional), initial encounter (principal); L50.0 Allergic urticaria; R22.1 Localized swelling, mass and lump, neck; Y92.9 Unspecified place or not applicable; F17.210 Nicotine dependence, cigarettes, uncomplicated; Z79.899 Other long term (current) drug therapy; Z71.6 Tobacco abuse counseling
CPT/HCPCS: 36415; 70481; 80053; 83605; 85025; 87040; 96361; 96374; 96375; 99284; 99285; J1100; J1200; Q9967

== ENCOUNTER 2023-07-18 11:04 | Outpatient (AMB) | payer OTHER, SELFPAY ==
[2023-07-18 11:08] VITALS: BMI 24.5
--- NOTE | 2023-07-18 11:08 | A.OFFVIS_ITS ---
Intake Vital Signs 07/18/23 11:08 Height 5 ft 5 in Weight 147 lb BMI 24.5 Intake Visit Reasons: OV - MRI review of right knee Intake Note: Mr. Vickers presents with complaints of intermittent discomfort in his right knee. He describes his discomfort as achy in nature. He states that his right knee will give out intermittently. He has tried Tylenol and anti-inflammatory medicines which gave him only mild relief. Allergies bee pollen [bee stings] Allergy (Verified 07/18/23 11:09) Swelling Medication List - Last Reconciled 07/18/23 by Shree Phelan MD amlodipine 10 mg PO DAILY bisacodyl (Dulcolax (bisacodyl)) 10 mg (2 x 5 mg) PO ONCE 1 day carvedilol (Coreg) 3.125 mg PO BID diphenhydramine HCl (Benadryl) 25 mg PO TID PRN epinephrine (EpiPen 2-Dre) 0.3 mg (0.3 mL) IM Q4H PRN fluoxetine 40 mg PO DAILY losartan 50 mg PO DAILY polyethylene glycol 3350 (Miralax) 238 grams PO ONCE PFSH Medical History Anxiety and depression Chest pressure Depression Dislocation of right shoulder joint History of ATN HTN (hypertension) Smoker Stuttering Surgical History No pertinent past surgical history Family History Mother Breast cancer HTN (hypertension) Father Unknown family medical history Social History Household Members Other:: lives alone Housing: Apartment Alcohol intake: current Alcohol intake frequency: does not drink Patient Tobacco Use Status: Current everyday Tobacco user Cigarette Packs Per Day: 1 e-Cigarette/Vaping Use: Never Used Second Hand Smoke Exposure: No Current occupational status: unemployed and disabled 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 Cognitive needs: No Hearing needs: No Vision needs: No Physical Exam Vital Signs: BMI result Body Mass Index 24.5 Const Other: Well-nourished well-developed very friendly male awake alert and oriented x3 in no acute distress Extrem Other: Bilateral lower extremity examination shows good capillary refill, no skin lesions noted, normal sensation light touch with Right knee examination shows a mild effusion, minimal crepitus with range of motion, tenderness along his medial joint line, positive Siddhartha's test, no instability Results Reviewed Results Reviewed: MRI of the patient's right knee shows mild diffuse joint space narrowing as well as possible tearing of his medial meniscus and thickened plica Assessment & Plan Assessment & Plan (1) Right knee pain: Code(s): M25.561 - Pain in right knee Plan Mr. 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 I had a lengthy discussion with the patient regarding the treatment options. At this point the patient's symptoms are tolerable to him. He will continue with his activity modifications. He will follow up with me on an as- needed basis should his symptoms worsen in any way. Feel free to call me at any time should questions regarding his orthopedic management arise. I spent 22 minutes in reviewing the patient's records and imaging studies, seeing the patient and documenting in the medical record. Coding Level of Care Code Est Pt Level 2 (34859) Diagnoses Right knee pain M25.561
== END 2023-07-18 11:36 | disposition home or self-care (01) ==
PROVIDERS: PCP Nurse Practitioner Family; Visit Provider Orthopaedic Surgery
DX: M25.561 Pain in right knee (principal)
CPT/HCPCS: 99212

== ENCOUNTER → 2023-07-18 11:04 | Outpatient (BNVA) | payer OTHER, SELFPAY | PROVIDERS: PCP Nurse Practitioner Family; Visit Provider Orthopaedic Surgery | DX: M67.51 Plica syndrome, right knee (principal); S83.241A Other tear of medial meniscus, current injury, right knee, initial encounter | CPT/HCPCS: 99212 ==

== ENCOUNTER 2024-04-17 09:50 | Observation (INO) | payer OTHER, SELFPAY ==
[2024-04-17] VITALS (13 sets, daily range): BP systolic 120–219; BP diastolic 68–111; PULSE 46–96; RESP 12–28; TEMP 36.4–36.9; O2SAT 96–99; BMI 28.2
--- NOTE | 2024-04-17 09:54 | ECG_ITS ---
Test Reason : ANAPHYLAXIA Blood Pressure : / mmHG Vent. Rate : 068 BPM Atrial Rate : 068 BPM P-R Int : 156 ms QRS Dur : 078 ms QT Int : 390 ms P-R-T Axes : 072 069 070 degrees QTc Int : 414 ms Normal sinus rhythm Minimal voltage criteria for LVH, may be normal variant ( Sokolow-Ludwig ) Anterior infarct , age undetermined Abnormal ECG No previous ECGs available Referred By: Suraj España Electronically Signed By:YANNI SILVERMAN
[2024-04-17] MEDS: EPINEPHrine 1 MG/ML VIAL 0.3 MG SUBCUT (09:58)
[2024-04-17 09:59] LABS: Glucose, Whole Blood 126 mg/dL (60-115)
[2024-04-17] MEDS: Racepinephrine HCL 0.5 ML VIAL.NEB 1 ML INHALE (09:59)
[2024-04-17] MEDS: Famotidine/PF 20 MG/2 ML VIAL IVPUSH (10:05)
[2024-04-17] MEDS: ondansetron HCL 4 MG/2 ML VIAL IVPUSH (10:05)
[2024-04-17] MEDS: EPINEPHrine 1 MG/ML VIAL 0.3 MG IVPUSH (10:17)
[2024-04-17 10:22] LABS: MANUAL DIFF FLAG NO
[2024-04-17 10:25] LABS: Basophils Percent Auto 0.2 % (0-2); Eosinophils Percent Auto 0.1 % (0-4); Hematocrit 41.2 % (42.0-52.0); Hemoglobin 14.4 g/dl (14.0-18.0); Imm Gran Abs Auto 0.05 X10*3/uL (0.00-0.03); Imm Gran Pct Auto 0.5 % (0.0-0.4); Lymphocytes Absolute Auto 4.1 X10*3/uL (1.2-4.9); Lymphocytes Percent Auto 40.1 % (20-40); Mean Corpuscular Hemoglobin 29.3 pg (27.0-33.0); Mean Corpuscular Volume 83.9 fL (80.0-98.0); Mean Platelet Volume 8.6 fL (9.4-12.4); Monocytes Absolute Auto 1.2 X10*3/uL (0.1-1.2); Monocytes Percent Auto 11.9 % (2-11); Neutrophils Absolute Auto 4.9 x10*3/uL (2.0-8.3); Neutrophils Percent Auto 47.2 % (45-73); Platelet Count 300 X10*3/uL (160-400); Red Blood Count 4.91 X10*6/uL (4.60-5.80); Red Cell Distribution Width 13.3 % (11.0-16.0); White Blood Count 10.3 X10*3/uL (4.8-10.8)
--- NOTE | 2024-04-17 10:29 | ED.ALLEREA ---
HPI - Allergic Reaction General Chief complaint: Allergic Reaction Stated complaint: ANAPHYLAXIS D/T MULTIPLE BEE STINGS Time Seen by Provider: 04/17/24 09:54 Source: patient and EMS Mode of arrival: EMS Limitations: no limitations History of Present Illness ED Provider: Dr. 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 EMS gave sq epi times 3, iv benadryl 50, solumedrol 125mg, and albuterol neb complaint: allergic reaction Related Data Previous Rx's ?Medication ?Instructions ?Recorded bisacodyl 5 mg tablet,delayed 10 mg (2 x 5 mg) PO ONCE 1 day #2 05/16/23 release (Dulcolax (bisacodyl)) tabs polyethylene glycol 3350 17 238 g PO ONCE #238 grams 05/16/23 gram/dose oral powder (Miralax) losartan 50 mg tablet 50 mg PO DAILY #90 tabs 06/08/23 diphenhydramine HCl 25 mg capsule 25 mg PO TID PRN allergic reaction 06/19/23 (Benadryl) #20 caps epinephrine 0.3 mg/0.3 mL 0.3 mg (0.3 mL) IM Q4H PRN 06/19/23 injection, auto-injector (EpiPen anaphylaxis #2 ea 2-Dre) carvedilol 3.125 mg tablet (Coreg) 3.125 mg PO BID #180 tabs 02/07/24 amlodipine 10 mg tablet 10 mg PO DAILY #90 tabs 03/04/24 fluoxetine 40 mg capsule 40 mg PO DAILY #90 caps 04/04/24 Allergies Allergy/AdvReac Type Severity Reaction Status Date / Time bee pollen [bee stings] Allergy Swelling Verified 04/17/24 10:08 Review of Systems Review of Systems: Yes all other systems are reviewed and are negative Neurologic: Denies Sensory deficit (Neuro) PMFSH Past Medical History Medical History HTN (hypertension) Dyslipidemia Anemia Nicotine dependence, cigarettes, uncomplicated Anxiety and depression History of ATN Stuttering Dislocation of right shoulder joint Surgical History History of excision of lesion Family History Family History Mother Breast cancer HTN (hypertension) Father Unknown family medical history Social History Social History Household Members Other:: lives alone Housing: Apartment Alcohol intake: current Alcohol intake frequency: does not drink Alcohol type: beer Patient Tobacco Use Status: Current everyday Tobacco user Cigarette Packs Per Day: 1 Smoked in Last 30 Days: Yes e-Cigarette/Vaping Use: Never Used Second Hand Smoke Exposure: No Use of substances other than those prescribed or required for medical reasons: Yes Substance Use Type: Marijuana Advance Directives: No Do you have a plan to hurt others: No Plan Current occupational status: unemployed and disabled 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 Cognitive needs: No Hearing needs: No Vision needs: No Physical Exam ED Vital Signs: Vital Signs - 24 hr 04/17/24 09:58 04/17/24 10:00 04/17/24 10:05 Temperature Pulse Rate 73 96 Respiratory Rate 24 H 26 H Blood Pressure 173/108 H Pulse Oximetry Oxygen Delivery Method Oxygen Flow Rate 04/17/24 10:06 04/17/24 10:17 04/17/24 10:24 Temperature Pulse Rate 73 75 46 L Respiratory Rate 28 H 25 H Blood Pressure 173/108 H 183/102 H Pulse Oximetry 96 96 Oxygen Delivery Method Room Air Oxygen Flow Rate 04/17/24 10:27 04/17/24 10:29 04/17/24 10:54 Temperature Pulse Rate 62 81 84 Respiratory Rate 26 H 25 H 18 Blood Pressure 219/111 H 160/89 H 120/80 Pulse Oximetry 96 99 99 Oxygen Delivery Method Non-Rebreather Mask Non-Rebreather Mask Nasal Cannula Oxygen Flow Rate 15 2 04/17/24 12:13 Temperature 98.5 F Pulse Rate 73 Respiratory Rate 12 Blood Pressure 132/76 Pulse Oximetry 99 Oxygen Delivery Method Nasal Cannula Oxygen Flow Rate 3 BMI result Body Mass Index 28.2 Const Other: male ill appearing Nutritional Appearance: average body habitus Orientation/consciousness: oriented to person and patient oriented x3 Limitations: no limitations HENMT Other: lip swelling, no tongue or uvula swelling Head: Yes normal to inspection Ears: external ears normal General nose exam: Normal external nose present Mouth: Normal oral and palatal mucosa present and oropharynx normal Throat: Yes posterior oropharynx normal Eyes General: appearance normal, both eyes and all related structures Neck Neck: Yes normal visual inspection Chest Chest palpation & inspection: normal inspection of the chest Resp Other: diffuse wheezing Cardio Jugular venous distension: no JVD Rate: regular rate Rhythm: regular rhythm Heart sounds: S1 normal heart sound present and S2 normal heart sound present GI Inspection: Yes normal to inspection Palpation (GI): Soft to palpation, nontender and No hepatosplenomegaly present Auscultation: normal bowel sounds General: Yes no CVA tenderness Back/Spine/Pelvis Back: no CVA tenderness Skin Other: diffuse hives Neuro General: oriented to person and patient oriented x3 Cranial nerves: Yes CN's II-XII intact bilaterally Motor exam (neuro): 5/5 motor strength present throughout Sensory Exam: No Sensory deficit (Neuro) Extrem General: Yes normal to inspection Psych Appearance: grossly normal Course Reevaluation(s) Reevaluation #1: patient had an episode of bradycardia after getting IVP epi. Patient now with lateral twave changes Reevaluation #2: I spent 40 minutes of critical care, with interventions, assessments, speaking to patient, consultants, and family. Discussed with Dr. Gupta Time: 13:01 Medications Administered Discontinued Medications Generic Name Dose Route Start Last Admin Trade Name Freq PRN Reason Stop Dose Admin Aspirin 325 mg 04/17/24 10:30 04/17/24 10:57 Aspirin Enteric Coated 325 Mg Tablet.Dr LONG 04/17/24 10:31 325 mg ONCE ONE Administration Epinephrine 0.3 mg 04/17/24 09:54 04/17/24 09:58 Epinephrine 1 Mg/Ml Vial SUBCUT 04/17/24 09:55 0.3 mg STAT STA Administration Epinephrine 0.5 ml 04/17/24 09:55 04/17/24 10:07 Racepinephrine Hcl 0.5 Ml Vial.Neb INHALE 04/17/24 09:56 Not Given ONCE ONE Epinephrine 1 ml 04/17/24 09:56 04/17/24 09:59 Racepinephrine Hcl 0.5 Ml Vial.Neb INHALE 04/17/24 09:57 1 ml ONCE ONE Administration Epinephrine 0.3 mg 04/17/24 10:05 04/17/24 10:17 Epinephrine 1 Mg/Ml Vial IVPUSH 04/17/24 10:06 0.3 mg STAT STA Administration Famotidine 20 mg 04/17/24 09:58 04/17/24 10:05 Famotidine/Pf 20 Mg/2 Ml Vial IVPUSH 04/17/24 09:59 20 mg ONCE ONE Administration Nitroglycerin 1 inch 04/17/24 10:30 04/17/24 10:57 Nitroglycerin 2 % Oint 1 Gm Packet TRANSDERMA 04/17/24 10:31 1 inch ONCE ONE Administration Ondansetron HCl 4 mg 04/17/24 10:00 04/17/24 10:05 Ondansetron Hcl 4 Mg/2 Ml Vial IVPUSH 04/17/24 10:01 4 mg ONCE ONE Administration Medical Decision Making Differential Diagnosis Differential Diagnoses: The differential diagnosis associated with the presentation includes (anaphylaxis, allergic reaction, bee sting, cardiac ischemia) Admission/Observation Consideration of admission/observation: Escalation of care including admission/observation considered (upon arrival patient considered for admission) Consult Healthcare Provider Management of the patient was discussed with: Hospitalist and Outsoles Channel Opener (Dr. Gupta cardiology) Lab Data 04/17/24 10:18 04/17/24 10:18 Labs: Lab Results 04/17/24 04/17/24 Range/Units 09:56 10:18 WBC 10.3 (4.8-10.8) X10*3/uL RBC 4.91 (4.60-5.80) X10*6/uL Hgb 14.4 (14.0-18.0) g/dl Hct 41.2 L (42.0-52.0) % MCV 83.9 (80.0-98.0) fL MCH 29.3 (27.0-33.0) pg MCHC 35.0 (31.0-36.0) g/dl RDW 13.3 (11.0-16.0) % Plt Count 300 (160-400) X10*3/uL MPV 8.6 L (9.4-12.4) fL Immature Gran % (Auto) 0.5 H (0.0-0.4) % Neut % (Auto) 47.2 (45-73) % Lymph % (Auto) 40.1 H (20-40) % [place] % (Auto) 11.9 H (2-11) % Eos % (Auto) 0.1 (0-4) % Baso % (Auto) 0.2 (0-2) % Lymph # (Auto) 4.1 (1.2-4.9) X10*3/uL [place] # (Auto) 1.2 (0.1-1.2) X10*3/uL Eos # (Auto) 0.0 (0.0-0.4) X10*3/uL Baso # (Auto) 0.0 (0.0-0.2) X10*3/uL Abs Immat Gran (auto) 0.05 H (0.00-0.03) X10*3/uL Absolute Neuts (auto) 4.9 (2.0-8.3) x10*3/uL Absolute Nucleated RBC 0.000 (0.0-0.012) X10*3/uL Nucleated RBC % (auto) 0.0 (0.0-0.2) /100WBC Sodium 136 (135-145) mmol/L Potassium 3.9 (3.3-5.1) mmol/L Chloride 104 (96-108) mmol/L Carbon Dioxide 19 L (22-29) mmol/L Anion Gap 17 (12-20) BUN 15 (9-16) mg/dL Creatinine 1.02 (0.5-1.4) mg/dL Estim Creat Clear Calc 77.4 Estimated GFR > 60 POC Glucose 126 H (60-115) mg/dL Random Glucose 141 H (60-115) mg/dL Calcium 9.6 (8.4-10.2) mg/dL Troponin I High Sens < 2.7 (<3.5-35.0) ng/L Independent Interpretation I performed an independent interpretation of an: EKG (#1 sinus 68 old anterior qs no st or twave changes #2 sinus 68 flipped ts inferior and lateral #[address] or twave changes) Independent Historian Clinical information obtained from an independent historian. History obtained from or confirmed by: EMS Chronic Conditions Patient?s care impacted by: Hypertension Discharge Plan Discharge Clinical Impression: Allergic reaction, Anaphylaxis, Acute ischemic heart disease Patient Disposition: Admitted As Inpatient Print Language: Tajik
[2024-04-17 10:42] LABS: Anion Gap 17 (12-20); Blood Urea Nitrogen 15 mg/dL (9-16); Calcium 9.6 mg/dL (8.4-10.2); Carbon Dioxide 19 mmol/L (22-29); Chloride 104 mmol/L (96-108); Creatinine Clr Calc Pharmacy 77.4; Estimated Glomerular Filt Rate > 60; Glucose Random 141 mg/dL (60-115); Potassium 3.9 mmol/L (3.3-5.1); Sodium 136 mmol/L (135-145)
[2024-04-17 10:53] LABS: Troponin-I High Sensitivity < 2.7 ng/L (<3.5-35.0)
--- NOTE | 2024-04-17 10:56 | ECG_ITS ---
Test Reason : PREVIOUS ABN EKG Blood Pressure : / mmHG Vent. Rate : 069 BPM Atrial Rate : 069 BPM P-R Int : 186 ms QRS Dur : 084 ms QT Int : 390 ms P-R-T Axes : 044 056 063 degrees QTc Int : 417 ms Normal sinus rhythm Septal infarct (cited on or before 17-APR-2024) Abnormal ECG When compared with ECG of 17-APR-2024 10:21, lateral ST changes improved Referred By: Suraj España Electronically Signed By:YANNI SILVERMAN
[2024-04-17] MEDS: Aspirin Enteric Coated 325 MG TABLET.DR PO (10:57)
[2024-04-17] MEDS: Nitroglycerin 2 % Oint 1 GM Packet 1 INCH TRANSDERMA (10:57)
--- NOTE | 2024-04-17 11:01 | PC.NURSE ---
patient came in via ems, becky orbital and mouth swelling, residential monitor applied, labs drawn, pt given medications per order, ekg performed. Epi IVP diluted in 9ml NS and administered. Pt experienced episode of bradycardia after administration, repeat EKG performed, pacer pads placed, pt put on 15L NRB mask, provider at bedside. pharmacy called to bedside as well. pt has since recovered from bradycardia episode, vitals are now stable, swelling to eyes and mouth area have decreased, pt states he is feeling better however still feels like it is difficult to swallow. call grady is within reach, pt now resting comfortably, will continue to monitor
--- NOTE | 2024-04-17 12:34 | PC.NURSE ---
repeat ekg performed at 1228pm
[2024-04-17 13:48] LABS: Troponin-I High Sensitivity 4.8 ng/L (<3.5-35.0)
--- NOTE | 2024-04-17 14:26 | PHA.MEDREC ---
Pharmacy Consult ? Medication Reconciliation Pharmacy has completed the medication reconciliation. Spoke to patient to confirm med list. Patient states he is not on Fluoxetine 40 mg daily, he doesn't have an Epipen at home. Patient also says he is on lorazepam for anxiety, however he didn't know the dose he was on. There is no claims and PDMP shows nothing. so, i left off list.
--- NOTE | 2024-04-17 14:42 | P.HPHOSP_ITS ---
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 He was unaware of any be allergy. However, immediately developed lightheadedness, diaphoresis then developed difficulty breathing, swallowing and noted swelling of his lips and eyes. While in the ambulance, was administered epinephrine pens x3 and 125 mg methylprednisolone, 50 mg IV Benadryl. He did vomit x1 in route. In the ED, recevied additional 0.3mg IV epi and subsequently developed bradycardia with EKG noting ST segment changes on EKG x2 in the lateral and septal leads respectively. Was hypertensive to 219/111 following IV epi but normotensive on admission. Vitals otherwise stable. Hematology studies unremarkable. Renal function normal, electrolyte levels normal. Initial troponin undetectable, repeat 4.8 (delta change). In addition to the epinephrine, was given 325 mg aspirin, nitro paste and ondansetron. ED discuss case with Cardiology recommending observation with cardiac monitoring overnight. Review of Systems 2 Review of Systems: Yes all other systems are reviewed and are negative [facility] Medical History HTN (hypertension) Dyslipidemia Anemia Nicotine dependence, cigarettes, uncomplicated Anxiety and depression History of ATN Stuttering Dislocation of right shoulder joint Family History Mother Breast cancer HTN (hypertension) Father Unknown family medical history Surgical History History of excision of lesion Social History Household Members Other:: lives alone Housing: Apartment Alcohol intake: current Alcohol intake frequency: does not drink Alcohol type: beer Patient Tobacco Use Status: Current everyday Tobacco user Cigarette Packs Per Day: 1 Smoked in Last 30 Days: Yes e-Cigarette/Vaping Use: Never Used Second Hand Smoke Exposure: No Use of substances other than those prescribed or required for medical reasons: Yes Substance Use Type: Marijuana Advance Directives: No Do you have a plan to hurt others: No Plan Current occupational status: unemployed and disabled 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 Cognitive needs: No Hearing needs: No Vision needs: No Meds Allergies Allergy/AdvReac Type Severity Reaction Status Date / Time bee pollen [bee stings] Allergy Swelling Verified 04/17/24 10:08 Home Medications ?Medication ?Instructions ?Recorded ?Confirmed ?Last Taken ?Type acetaminophen 500 mg capsule 1,000 mg PO BID PRN Pain 04/17/24 04/17/24 Unknown History Physical Exam 2 Vital Signs and Narrative: Vital Signs: Last Vital Signs Temp 98.5 F 04/17/24 12:13 Pulse 73 04/17/24 12:13 Resp 12 04/17/24 12:13 BP 132/76 04/17/24 12:13 Pulse Ox 99 04/17/24 12:13 O2 Del Method Nasal Cannula 04/17/24 12:13 O2 Flow Rate 3 04/17/24 12:13 BMI result Body Mass Index 28.2 Constitutional - Awake and Alert, No apparent distress Eyes - PERRLA, EOMI Cardiovascular - S1S2, RRR, No edema Respiratory - Normal lung expansion, Normal respiratory effort, No respiratory distress, CTA bilaterally Gastrointestinal - NT / ND; +BS; No rebound or guarding Extremities - no calf tenderness bilaterally, no swelling Skin - Warm/Dry Neurological - Alert & oriented x3 Psychological - Appropriate affect Results Labs 04/17/24 10:18 04/17/24 10:18 Labs: Laboratory Results - last 24 hr 04/17/24 04/17/24 04/17/24 09:56 10:18 13:18 MCV 83.9 MCH 29.3 MCHC 35.0 RDW 13.3 Plt Count 300 MPV 8.6 L Immature Gran % (Auto) 0.5 H Neut % (Auto) 47.2 Lymph % (Auto) 40.1 H [place] % (Auto) 11.9 H Eos % (Auto) 0.1 Baso % (Auto) 0.2 Lymph # (Auto) 4.1 [place] # (Auto) 1.2 Eos # (Auto) 0.0 Baso # (Auto) 0.0 Abs Immat Gran (auto) 0.05 H Absolute Neuts (auto) 4.9 Absolute Nucleated RBC 0.000 Nucleated RBC % (auto) 0.0 Anion Gap 17 Estim Creat Clear Calc 77.4 Estimated GFR > 60 POC Glucose 126 H Random Glucose 141 H Calcium 9.6 Troponin I High Sens < 2.7 4.8 D Assessment and Plan (1) Acute ischemic heart disease: Status: Acute Plan 58-year-old male with history of hypertension, hyperlipidemia, depression who is a current 1 pack per day smoker to be observed for cardiac monitoring following multiple epinephrine administrations for anaphylaxis with ekg changes #Anaphylaxis following multiple bee stings -give epipen x 3, IV methylprednisolone, famotidine, and 0.3mg IV epi -Full resolution of symptoms -hold on further steroids at this time -Monitor for evolving symptoms -montior on tele #EKG changes -Following multiple epi administrations as above. ?underlying ischemic heart disease -EKG with lateral and septal st changes -Initial trop <2.7, repeat 4.8 (delta). Repeat in 3 hours -cardiology consult -monitor on tele #HTN -continue amlodipine, carvedilol, losartan DVT prophylaxis- SCPs/early ambulation full code Quality Stroke Does the patient have a stroke diagnosis?: No VTE Prior VTE?: No VTE Risk Level:: Medical - moderate - high VTE Device Contraindication: N/A - Device Ordered VTE Drug Contraindication: Treatment Not Indicated
--- NOTE | 2024-04-17 15:10 | ECG_ITS ---
Test Reason : BRADYCARDIA Blood Pressure : / mmHG Vent. Rate : 082 BPM Atrial Rate : 082 BPM P-R Int : 186 ms QRS Dur : 084 ms QT Int : 362 ms P-R-T Axes : 065 062 102 degrees QTc Int : 422 ms Normal sinus rhythm Cannot rule out Anterior infarct (cited on or before 17-APR-2024) T wave abnormality, consider lateral ischemia Abnormal ECG When compared with ECG of 17-APR-2024 09:56, lateral ST depression is new Referred By: Suraj España Electronically Signed By:YANNI SILVERMAN
[2024-04-17] MEDS: 0.9 % Sodium Chloride Flush 3 ML SYRINGE IVFLUSH ×2 (16:04→20:41)
--- NOTE | 2024-04-17 16:09 | PC.NURSE ---
patient a&ox, vss, pt has now been titrated off O2, O2 sat has stayed WNL, lungs currently clear/diminished- wheezing has resolved. pt speaking in full sentences, denies difficulty breathing/swallowing, pt states I feel so much better than before pt using urinal at bedside, call grady within reach, will continue to monitor
[2024-04-17 16:53] LABS: Troponin-I High Sensitivity 4.7 ng/L (<3.5-35.0)
[2024-04-17] MEDS: carvediloL 3.125 MG TABLET PO (20:41)
[2024-04-17] MEDS: Melatonin 3 MG TABLET 6 MG PO (20:41)
[2024-04-18] VITALS: BP 157/66; PULSE 62; RESP 16; TEMP 36.4; O2SAT 100
[2024-04-18 00:30] VITALS: BMI 25.2
[2024-04-18 03:44] VITALS: BP 162/74; PULSE 64; RESP 16; TEMP 36.8; O2SAT 64
[2024-04-18] MEDS: Nicotine 14 MG PATCH.TD24 TRANSDERMA (05:49)
[2024-04-18 07:43] VITALS: BP 148/79; PULSE 63; RESP 20; TEMP 37.2; O2SAT 95
[2024-04-18 08:52] VITALS: BP 148/79
[2024-04-18] MEDS: amLODIPine Besylate 10 MG TABLET PO (08:52)
[2024-04-18] MEDS: FLUoxetine HCl 20 MG CAPSULE 40 MG PO (08:52)
[2024-04-18 08:53] VITALS: BP 148/79; PULSE 63
[2024-04-18] MEDS: 0.9 % Sodium Chloride Flush 3 ML SYRINGE IVFLUSH (08:53)
[2024-04-18] MEDS: Losartan Potassium 50 MG TABLET PO (08:53)
[2024-04-18] MEDS: carvediloL 3.125 MG TABLET PO (08:53)
[2024-04-18 09:21] LABS: MANUAL DIFF FLAG NO
[2024-04-18 09:31] LABS: Basophils Absolute Auto 0.1 X10*3/uL (0.0-0.2); Basophils Percent Auto 0.4 % (0-2); Hematocrit 37.1 % (42.0-52.0); Hemoglobin 13.1 g/dl (14.0-18.0); Imm Gran Abs Auto 0.05 X10*3/uL (0.00-0.03); Imm Gran Pct Auto 0.4 % (0.0-0.4); Lymphocytes Percent Auto 17.6 % (20-40); Mean Corpuscular HGB Conc 35.3 g/dl (31.0-36.0); Mean Corpuscular Volume 82.3 fL (80.0-98.0); Mean Platelet Volume 9.1 fL (9.4-12.4); Monocytes Absolute Auto 1.5 X10*3/uL (0.1-1.2); Monocytes Percent Auto 13.1 % (2-11); Neutrophils Absolute Auto 7.7 x10*3/uL (2.0-8.3); Neutrophils Percent Auto 68.5 % (45-73); Platelet Count 289 X10*3/uL (160-400); Red Blood Count 4.51 X10*6/uL (4.60-5.80); Red Cell Distribution Width 12.8 % (11.0-16.0); White Blood Count 11.2 X10*3/uL (4.8-10.8)
--- NOTE | 2024-04-18 09:37 | PM.CNCAR ---
History of Present Illness History of Present Illness Date of Service: 04/18/24 Chief complaint: EKG changes following multiple epi administrations Narrative: This is a cardiology consultation for abnormal EKG. Patient without any known cardiac history. Has hypertension at baseline. Smoker. 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 Developed anaphylactic reaction. Was seen by EMS and given epinephrine several times as well as steroids and Benadryl. He got additional epinephrine in the ER. Then apparently got some bradycardia and abnormal looking EKG. He was also quite hypertensive and blood pressure went up as much as 219/111 mm Hg. Then troponins were checked but unremarkable. It was decided that he will be admitted for monitoring. Patient states he feels okay. He really does not have any chest pain or other cardiac sounding symptoms. Review of Systems Review of Systems: Yes all other systems are reviewed and are negative Constitutional: Constitutional: Reports as per HPI and Reports no additional constitutional complaints Eyes: Eyes: Reports as per HPI and Denies no additional eye complaints ENT: Denies system reviewed and no additional complaints, except as documented and Reports as per HPI Cardiovascular: Cardiovascular: Reports as per HPI, Reports no additional cardiovascular complaints, Denies acrocyanosis, Denies cool extremities, Denies chest pain, Denies leg edema, Denies lightheadedness, Denies palpitations and Denies dyspnea Respiratory: Respiratory: Reports as per HPI, Denies no additional respiratory complaints and Denies dyspnea Gastrointestinal: Gastrointestinal: Reports as per HPI and Denies no additional gastrointestinal complaints Genitourinary: Genitourinary: Reports no additional male genitourinary complaints and Reports as per HPI Musculoskeletal: Musculoskeletal: Reports no additional musculoskeletal complaints and Reports as per HPI Integumentary/Breasts: Skin/Breast: Reports system reviewed and no additional complaints, except as docu Neurologic: Reports system reviewed and no additional complaints, except as documented and Reports as per HPI Psychiatric: Psychiatric: Reports no additional psychiatric complaints and Reports as per HPI Endocrine: Endocrine: Reports no additional endocrine complaints, Reports as per HPI and Denies palpitations Hematologic/Lymphatic: Hematologic/Lymphatic: Reports no additional hematologic/lymphatic complaints and Reports as per HPI Allergic/Immunologic: Allergic/Immunologic: Reports no additional allergic/immunologic complaints and Reports as per HPI [facility] Past Medical History Medical History HTN (hypertension) Dyslipidemia Anemia Nicotine dependence, cigarettes, uncomplicated Anxiety and depression History of ATN Stuttering Dislocation of right shoulder joint Family History Family History Mother Breast cancer HTN (hypertension) Father Unknown family medical history Surgical History Surgical History History of excision of lesion Social History Social History Household Members: None Household Members Other:: lives alone Housing: Apartment Do you presently have visiting nurse or other home services: No Alcohol intake: current Alcohol intake frequency: does not drink Alcohol type: beer Patient Tobacco Use Status: Current everyday Tobacco user Tobacco use type: Cigarette Cigarette Packs Per Day: 1 Smoked in Last 30 Days: Yes e-Cigarette/Vaping Use: Never Used Frequency of e-Cigarette/Vaping Use: 1 Patient Interested in Nicotine Replacement: Yes Patient Given Instructions on How to Stop Smoking: No Second Hand Smoke Exposure: No Use of substances other than those prescribed or required for medical reasons: Yes Substance Use Type: Marijuana Substance Use Frequency: Daily Last Used Substance: Just Prior to Admission Last Used Substance Other:: 7am today Currently Displaying Signs/Symptoms of Drug Intoxication Withdrawal: No Any prior treatment program specific to substance use: No Have you been hit, kicked, punched, or otherwise hurt by someone within the past year? 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 Cognitive needs: No Hearing needs: No Vision needs: No Meds Allergies Allergy/AdvReac Type Severity Reaction Status Date / Time bee pollen [bee stings] Allergy Swelling Verified 04/17/24 10:08 Active Medications: Current Medications Acetaminophen (Acetaminophen 325 Mg Tablet) 650 mg PO Q6H PRN PRN Reason: Pain, Mild (Pain Scale 1-3), fever or headache Amlodipine Besylate (Amlodipine Besylate 10 Mg Tablet) 10 mg PO DAILY [facility]; Protocol Last Admin: 04/18/24 08:52 Dose: 10 mg Calcium Carbonate (Calcium Carbonate 750 Mg Tab.Chew) 750 mg PO Q4H PRN PRN Reason: Heartburn Carvedilol (Carvedilol 3.125 Mg Tablet) 3.125 mg PO BID [facility]; Protocol Last Admin: 04/18/24 08:53 Dose: 3.125 mg Diphenhydramine HCl (Diphenhydramine Hcl 25 Mg Capsule) 25 mg PO TID PRN PRN Reason: allergic reaction Fluoxetine HCl (Fluoxetine Hcl 20 Mg Capsule) 40 mg PO DAILY [facility] Last Admin: 04/18/24 08:52 Dose: 40 mg Losartan Potassium (Losartan Potassium 50 Mg Tablet) 50 mg PO DAILY [facility]; Protocol Last Admin: 04/18/24 08:53 Dose: 50 mg Magnesium Hydroxide (Milk Of Magnesia 30 Ml Oral.Susp) 30 ml PO DAILY PRN PRN Reason: Constipation Melatonin (Melatonin 3 Mg Tablet) 6 mg PO BEDTIME PRN PRN Reason: Insomnia Last Admin: 04/17/24 20:41 Dose: 6 mg Nicotine (Nicotine 14 Mg Patch.Td24) 14 mg TRANSDERMA DAILY [facility] Last Admin: 04/18/24 05:49 Dose: 14 mg Ondansetron HCl (Ondansetron Hcl 4 Mg/2 Ml Vial) 4 mg IVPUSH Q8H PRN PRN Reason: Nausea and Vomiting Sodium Chloride (0.9 % Sodium Chloride Flush 3 Ml Syringe) 3 ml IVFLUSH QSHIFT [facility] Last Admin: 04/18/24 08:53 Dose: 3 ml Home Medications ?Medication ?Instructions ?Recorded ?Confirmed ?Last Taken ?Type acetaminophen 500 mg capsule 1,000 mg PO BID PRN Pain 04/17/24 04/17/24 Unknown History Physical Exam Vital Signs: Vital Signs: Last Vital Signs Temp 99.0 F 04/18/24 07:43 Pulse 63 04/18/24 08:53 Resp 20 04/18/24 07:43 BP 148/79 H 04/18/24 08:53 Pulse Ox 95 04/18/24 07:43 O2 Del Method Room Air 04/18/24 07:43 O2 Flow Rate 3 04/17/24 12:13 BMI result Body Mass Index 25.2 Const: General: comfortable and no acute distress Orientation/consciousness: patient oriented x3 HEENT: Other: Unremarkable Head: Yes normal to inspection Neck: Neck: Yes normal visual inspection Chest: Chest palpation & inspection: normal inspection of the chest Resp: Auscultation: clear to auscultation bilaterally Cardio: Palpation: normal PMI Heart sounds: S1 normal heart sound present, S2 normal heart sound present, no gallops, no murmurs and no rubs GI: Palpation (GI): Soft to palpation Back/Spine/Pelvis: Other: unremarkable Skin: General skin exam: no rashes or lesions noted Neuro: General: patient oriented x3 Extrem: General: Yes normal to inspection Psych: Mental Status: mental status grossly normal Objective Labs and Meds 04/18/24 08:24 04/18/24 08:24 Lab results: Laboratory Results - last 24 hr 04/17/24 04/17/24 04/17/24 09:56 10:18 13:18 WBC 10.3 RBC 4.91 Hgb 14.4 Hct 41.2 L MCV 83.9 MCH 29.3 MCHC 35.0 RDW 13.3 Plt Count 300 MPV 8.6 L Immature Gran % (Auto) 0.5 H Neut % (Auto) 47.2 Lymph % (Auto) 40.1 H [place] % (Auto) 11.9 H Eos % (Auto) 0.1 Baso % (Auto) 0.2 Lymph # (Auto) 4.1 [place] # (Auto) 1.2 Eos # (Auto) 0.0 Baso # (Auto) 0.0 Abs Immat Gran (auto) 0.05 H Absolute Neuts (auto) 4.9 Absolute Nucleated RBC 0.000 Nucleated RBC % (auto) 0.0 Sodium 136 Potassium 3.9 Chloride 104 Carbon Dioxide 19 L Anion Gap 17 BUN 15 Creatinine 1.02 Estim Creat Clear Calc 77.4 Estimated GFR > 60 POC Glucose 126 H Random Glucose 141 H Calcium 9.6 Troponin I High Sens < 2.7 4.8 D 04/17/24 04/18/24 16:26 08:24 WBC 11.2 H RBC 4.51 L Hgb 13.1 L Hct 37.1 L MCV 82.3 MCH 29.0 MCHC 35.3 RDW 12.8 Plt Count 289 MPV 9.1 L Immature Gran % (Auto) 0.4 Neut % (Auto) 68.5 Lymph % (Auto) 17.6 L [place] % (Auto) 13.1 H Eos % (Auto) 0.0 Baso % (Auto) 0.4 Lymph # (Auto) 2.0 [place] # (Auto) 1.5 H Eos # (Auto) 0.0 Baso # (Auto) 0.1 Abs Immat Gran (auto) 0.05 H Absolute Neuts (auto) 7.7 Absolute Nucleated RBC 0.000 Nucleated RBC % (auto) 0.0 Sodium Potassium Chloride Carbon Dioxide Anion Gap BUN Creatinine Estim Creat Clear Calc Estimated GFR POC Glucose Random Glucose Calcium Troponin I High Sens 4.7 ECG Interpretation: EKGs reviewed. One of them showed downsloping ST with T inversion in anterolateral leads but others are okay. Assessment and Plan (1) Anaphylaxis: Status: Acute (2) Allergic reaction: Status: Acute (3) HTN (hypertension): Status: Acute Plan EKG changes could be related to epinephrine use and acute hypertension. Does not appear to be an acute plaque rupture. By prior echocardiogram, normal LV function. Indeterminate stress testing. He does have risk factors of smoking hypertension. We can do a coronary CTA as an outpatient. Otherwise stop beta-blockers as he might need EpiPen use in the future. Increase losartan dose. Follow-up in clinic. Discussed with Dr. Marie. Procedures Date of Service Date of Service: 04/18/24
[2024-04-18 09:49] LABS: Anion Gap 14 (12-20); Blood Urea Nitrogen 17 mg/dL (9-16); Calcium 9.4 mg/dL (8.4-10.2); Chloride 104 mmol/L (96-108); Creatinine Clr Calc Pharmacy 82.4; Estimated Glomerular Filt Rate > 60; Glucose Random 98 mg/dL (60-115); Potassium 3.8 mmol/L (3.3-5.1); Sodium 137 mmol/L (135-145)
[2024-04-18 10:00] LABS: Carbon Dioxide 23 mmol/L (22-29)
--- NOTE | 2024-04-18 10:39 | PM.DS ---
DS: Providers Provider Date of Service: 04/18/24 Date of admission: 04/17/24 14:40 Date of discharge: 04/18/24 Primary care physician: Unknown Physician Consults: 04/17/24 14:40 Consult to Cardiology Routine Consulting Provider: [facility] [place] [facility] Reason for consultation: EKG changes following epi admin DS: Diagnosis Discharge Diagnosis (1) Anaphylaxis: Status: Acute (2) Allergic reaction: Status: Acute (3) HTN (hypertension): Status: Acute (4) Acute electrocardiogram changes: Status: Acute DS: Summary Hospital Course Hospital Course: From the history and physical by the admitting hospitalist, KATHIE Vallejo, 04/17/24: 58-year-old male with history of hypertension, hyperlipidemia, depression who is a current 1 pack per day smoker presented to the ED via EMS after being 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 He was unaware of any be allergy. However, immediately developed lightheadedness, diaphoresis then developed difficulty breathing, swallowing and noted swelling of his lips and eyes. While in the ambulance, was administered epinephrine pens x3 and 125 mg methylprednisolone, 50 mg IV Benadryl. He did vomit x1 in route. In the ED, recevied additional 0.3mg IV epi and subsequently developed bradycardia with EKG noting ST segment changes on EKG x2 in the lateral and septal leads respectively. Was hypertensive to 219/111 following IV epi but normotensive on admission. Vitals otherwise stable. Hematology studies unremarkable. Renal function normal, electrolyte levels normal. Initial troponin undetectable, repeat 4.8 (delta change). In addition to the epinephrine, was given 325 mg aspirin, nitro paste and ondansetron. ED discuss case with Cardiology recommending observation with cardiac monitoring overnight. Overnight monitoring was unremarkable. Troponins were normal. Cardiology was consulted and recommended outpatient CTCA, which they will arrange. They also recommended stopping carvedilol due to interference with epinephrine; losartan was increased to compensate. He should have repeat BMP in 1-2 weeks. He was also prescribed epinephrine autoinjector and instructed to carry it at all times and to avoid insect stings. He was counseled to quit smoking and NRT was prescribed to aid in this. Time Attestation Discharge Coordination Time (in mins): 35 Quality: Safe Use of Opioids Does Pt have an Active Cancer Diagnosis on the Problem List?: No Quality: Stroke Does the patient have a stroke diagnosis?: No Physical Exam Vital Signs: Vital Signs: Last Vital Signs Temp 99.0 F 04/18/24 07:43 Pulse 63 04/18/24 08:53 Resp 20 04/18/24 07:43 BP 148/79 H 04/18/24 08:53 Pulse Ox 95 04/18/24 07:43 O2 Del Method Room Air 04/18/24 07:43 O2 Flow Rate 3 04/17/24 12:13 BMI result Body Mass Index 25.2 Gen: in no acute distress HEENT: sclera anicteric, moist mucus membranes Neck: supple Lungs: clear to auscultation bilaterally Heart: regular rate and rhythm, no murmurs Abd: soft, non-tender, non-distended Ext: no edema Skin: warm/well-perfused Neuro: alert and oriented x3, no focal findings Psych: appropriate affect DS: Data Data Completed and Pending Completed studies during hospitalization [Text1]: Laboratory Tests 04/17/24 04/17/24 04/17/24 09:56 10:18 13:18 WBC 10.3 RBC 4.91 Hgb 14.4 Hct 41.2 L MCV 83.9 MCH 29.3 MCHC 35.0 RDW 13.3 Plt Count 300 MPV 8.6 L Immature Gran % (Auto) 0.5 H Neut % (Auto) 47.2 Lymph % (Auto) 40.1 H [place] % (Auto) 11.9 H Eos % (Auto) 0.1 Baso % (Auto) 0.2 Lymph # (Auto) 4.1 [place] # (Auto) 1.2 Eos # (Auto) 0.0 Baso # (Auto) 0.0 Abs Immat Gran (auto) 0.05 H Absolute Neuts (auto) 4.9 Absolute Nucleated RBC 0.000 Nucleated RBC % (auto) 0.0 Sodium 136 Potassium 3.9 Chloride 104 Carbon Dioxide 19 L Anion Gap 17 BUN 15 Creatinine 1.02 Estim Creat Clear Calc 77.4 Estimated GFR > 60 POC Glucose 126 H Random Glucose 141 H Calcium 9.6 Troponin I High Sens < 2.7 4.8 D 04/17/24 04/18/24 16:26 08:24 WBC 11.2 H RBC 4.51 L Hgb 13.1 L Hct 37.1 L MCV 82.3 MCH 29.0 MCHC 35.3 RDW 12.8 Plt Count 289 MPV 9.1 L Immature Gran % (Auto) 0.4 Neut % (Auto) 68.5 Lymph % (Auto) 17.6 L [place] % (Auto) 13.1 H Eos % (Auto) 0.0 Baso % (Auto) 0.4 Lymph # (Auto) 2.0 [place] # (Auto) 1.5 H Eos # (Auto) 0.0 Baso # (Auto) 0.1 Abs Immat Gran (auto) 0.05 H Absolute Neuts (auto) 7.7 Absolute Nucleated RBC 0.000 Nucleated RBC % (auto) 0.0 Sodium 137 Potassium 3.8 Chloride 104 Carbon Dioxide 23 Anion Gap 14 BUN 17 H Creatinine 0.87 Estim Creat Clear Calc 82.4 Estimated GFR > 60 POC Glucose Random Glucose 98 Calcium 9.4 Troponin I High Sens 4.7 Discharge Plan Discharge Patient Disposition: Home, Self-Care Discharge Diagnosis: anaphylactic reaction to insect sting EKG changes on epinephrine Referrals: Jose Gupta MD [Physician] - 2 Weeks Physician,Ameena J [Primary Care Provider] - 1 Week Discharge Medications: New nicotine 14 mg/24 hr Patch 24 Hour 14 mg transdermal DAILY Qty: 30 0RF losartan 100 mg tablet 100 mg PO DAILY Qty: 30 0RF Rx Instructions: replaces prior dose of 50 mg epinephrine [EpiPen 2-Dre] 0.3 mg/0.3 mL auto-injector 0.3 mg IM .q5min PRN (Reason: anaphylaxis) Qty: 2 11RF Continued amlodipine 10 mg tablet 10 mg PO DAILY Qty: 90 1RF diphenhydramine HCl [Benadryl] 25 mg capsule 25 mg PO TID PRN (Reason: allergic reaction) Qty: 20 0RF acetaminophen 500 mg Capsule 1,000 mg PO BID PRN (Reason: Pain) Discontinued carvedilol [Coreg] 3.125 mg tablet 3.125 mg PO BID Qty: 180 0RF Rx Instructions: must administer with a meal/food losartan 50 mg tablet 50 mg PO DAILY Qty: 90 1RF Discharge Orders: Discharge Order (Routine); Ordered 04/18/24 Ordered By: Sid Marie Diet: Advance to usual diet Activity on Discharge: As tolerated Stand Alone Forms: Patient Portal Discharge page Print Language: Slovenian Care Plan Goals: avoid anaphylaxis cardiac health Health Concerns: anaphylactic reaction to insect sting EKG changes on epinephrine Plan of Treatment: in case of insect sting, use epinephrine autoinjector as directed; carry it with you at all times stop carvedilol [Coreg] and increase losartan to 100 mg daily; recheck BMP in 1-2 weeks follow up with [facility] [place] [facility] Cardiology in [address] coronary artery scan establish primary care SILVIA stop smoking; use nicotine patch to help quit Assessment: See Discharge Summary. Patient Instructions: Anaphylaxis (ED), Epinephrine (By injection)
--- NOTE | 2024-04-18 10:44 | MHC.CM.PN ---
JENNA 04/18/24, EMR REVIEWED, CM MET W/PT WHO REPORTS HE LIVES ALONE, IS INDEP W/CARE, DENIES USE OF DME/SERVICES AND REPORTS HE IS READY TO GO HOME TODAY. PT VERIFIES PCP IS ABRAHAM LAWSON, PT EDUCATED ON AND DECLINES TO COMPLETE A HCP. PT DISCHARGING HOME SELF CARE AND WILL CALL FOR [facility].
[2024-04-18 11:29] VITALS: BP 159/87; PULSE 70; RESP 20; TEMP 37; O2SAT 98
== END 2024-04-18 11:44 | disposition home or self-care (01) ==
LOC: HO.ED 13:09 → HO.EDOVER 14:44 → HO.IMC 16:29
PROVIDERS: Admitting Provider Physician Assistant; Emergency Provider Emergency Medicine; PCP Nurse Practitioner Family; Visit Provider Family Medicine
DX: T78.2XXA Anaphylactic shock, unspecified, initial encounter (principal); T63.441A Toxic effect of venom of bees, accidental (unintentional), initial encounter; T78.40XA Allergy, unspecified, initial encounter; Y92.9 Unspecified place or not applicable; I24.9 Acute ischemic heart disease, unspecified; I10 Essential (primary) hypertension; R94.31 Abnormal electrocardiogram [ECG] [EKG]; L50.0 Allergic urticaria; Z79.899 Other long term (current) drug therapy; F17.210 Nicotine dependence, cigarettes, uncomplicated
CPT/HCPCS: 36415; 80048; 82947; 84484; 85025; 93005; 94640; 96372; 96374; 96375; 96376; 99222; 99285; J0171; J2405

== ENCOUNTER → 2024-04-17 14:40 | Outpatient (BNV) | payer OTHER, SELFPAY | PROVIDERS: Admitting Provider Physician Assistant; Emergency Provider Emergency Medicine; Visit Provider Internal Medicine | DX: T78.2XXA Anaphylactic shock, unspecified, initial encounter (principal); T78.40XA Allergy, unspecified, initial encounter; I10 Essential (primary) hypertension; R94.31 Abnormal electrocardiogram [ECG] [EKG]; R00.1 Bradycardia, unspecified | CPT/HCPCS: 93010; 99223 ==

== ENCOUNTER → 2024-04-17 14:40 | Outpatient (BNV) | payer OTHER, SELFPAY | PROVIDERS: Admitting Provider Physician Assistant; Emergency Provider Emergency Medicine; Visit Provider Physician Assistant | DX: T78.2XXA Anaphylactic shock, unspecified, initial encounter (principal); T78.40XA Allergy, unspecified, initial encounter; I10 Essential (primary) hypertension; R94.31 Abnormal electrocardiogram [ECG] [EKG]; I24.9 Acute ischemic heart disease, unspecified | CPT/HCPCS: 99223; 99239 ==

== ENCOUNTER 2024-06-20 10:58 | Outpatient (AMB) | payer OTHER, SELFPAY ==
[2024-06-20 11:04] VITALS: BP 142/80; PULSE 88; O2SAT 96; BMI 23.8
--- NOTE | 2024-06-20 11:04 | A.OFFPC_ITS ---
Vital Signs 06/20/24 11:04 06/20/24 11:35 Height 5 ft 5 in Weight 143 lb BMI 23.8 BP 142/80 H 136/80 Blood Pressure Location Rt brachial Rt brachial Position Sitting Sitting Pulse 88 Pulse Source Pulse Oximeter Pulse Oximetry (%) 96 Intake Visit Reasons: PE Intake Note: pt is here for annual exam Historiographer Required: No Accompanied by: Self / Same As Patient Allergies bee pollen [bee stings] Allergy (Verified 06/20/24 11:44) Swelling Medication List - Last Reconciled 06/20/24 by NORMA Ashraf acetaminophen 1,000 mg PO BID PRN amlodipine 10 mg PO DAILY diphenhydramine HCl (Benadryl) 25 mg PO TID PRN epinephrine (EpiPen 2-Dre) 0.3 mg (0.3 mL) IM .q5min PRN losartan 100 mg PO DAILY meloxicam 7.5 mg PO BID PRN 30 days Tobacco use date assessed: 06/20/24 Dental Screening Dental Screen Date: 06/20/24 Did you have a dental visit in the last 12 months?: Yes Did you have a dental problem in the last 6 months where you did not have access to dental care?: No Was dental information given to patient?: Patient has dentist HPI PE HPI Details Pt is here for a PE. Will order labs. Pt saw GI for his pre-colonoscopy appointment but has not scheduled the procedure. Will reach out to GI. Due for PSA, will order. Denies dribbling with urination, weak stream, and frequent nocturia. Pt's blood pressure is elevated today. He is currently taking amlodipine 10mg and losartan 100mg. Will have pt monitor his blood pressure at home and record readings. Denies chest pain, shortness of breath, headache, dizziness, and blurred vision. Pt has been a PPD smoker since age 22. Will refer for low-dose CT, he is now willing to go. Pt follows up with cardiology. Labs were already ordered. [facility] Medical History HTN (hypertension) Dyslipidemia Anemia Nicotine dependence, cigarettes, uncomplicated Anxiety and depression History of ATN Stuttering Dislocation of right shoulder joint Surgical History History of excision of lesion Family History Mother Breast cancer HTN (hypertension) Father Unknown family medical history Social History Household Members: None Household Members Other:: lives alone Housing: Apartment Do you presently have visiting nurse or other home services: No Alcohol intake: current Alcohol intake frequency: does not drink Alcohol type: beer Patient Tobacco Use Status: Current everyday Tobacco user Tobacco use type: Cigarette Cigarette Packs Per Day: 1 e-Cigarette/Vaping Use: Never Used Second Hand Smoke Exposure: No Substance Use Type: Marijuana service: No Current occupational status: unemployed and disabled 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 1. Little interest or pleasure in doing things: not at all 2. Feeling down, depressed, or hopeless: not at all 3. Trouble falling or staying asleep, or sleeping too much: nearly every day 4. Feeling tired or having little energy: more than half the days 5. Poor appetite or overeating: more than half the days 6. Feeling bad about yourself - or that you are a failure or have let yourself or your family down: not at all 7. Trouble concentrating on things, such as reading the newspaper or watching television: more than half the days 8. Moving or speaking so slowly that other people could have noticed. Or the opposite - being so fidgety or restless that you have been moving around a lot more than usual: not at all 9. Thoughts that you would be better off or of hurting yourself in some way: not at all Total score: 9 Depression Screening Interpretation: Negative Depression Screening Done: Yes 46902 - PHQ-9 Billing: Yes Source: Developed by Drs. Lj Sheridan, Olga Leung, Miky Delaney and colleagues, with an educational broderick from [employer]. Thrive Questionnaire Date Thrive assessed: 06/20/24 I am a: Patient What is your living situation today?: I have a steady place to live Within the past 12 months, did the food you bought not last and you didn't have the money to get more?: Sometimes True Within the past 12 months, did you worry whether your food would run out before you got money to buy more?: Often true Do you have trouble paying for medicines?: No Do you have trouble getting transportation to medical appointments?: No Do you have trouble paying your heating and electricity bill?: No Do you have trouble taking care of your child, family member or friend?: No Do you have trouble with day-to-day activities such as bathing, preparing meals, shopping, managing finances, etc.?: No Are you currently unemployed and looking for a job?: No Are you interested in more education?: No Please select the resources that you would like help with: None Currently or been in a relationship where the following occur: No concerns reported THRIVE Score: 2 AUDIT C Alcohol Use Questionnaire (AUDIT-C) 1. How often do you have a drink containing alcohol?: Monthly or less 2. How many drinks containing alcohol do you have on a typical day when you are drinking?: 1 or 2 3. How often do you have six or more drinks on one occasion?: Never Total Score: 1 Score Reviewed/Action Taken: Yes DEANGELO-7 AMB Questionnaire DEANGELO-7 Date DEANGELO - 7 assessed: 06/20/24 Feeling nervous, anxious, or on edge: 0 = Not at all Not being able to stop or control worryin = Not at all Worrying too much about different things: 0 = Not at all Trouble relaxin = Not at all Being so restless that it is hard to sit still: 0 = Not at all Becoming easily annoyed or irritable: 3 = Nearly every day Feeling afraid as if something awful might happen: 0 = Not at all Total DEANGELO-7 score (0-4 normal; 5-9 mild; 10-14 moderate; 15-21 severe): 3 Source: Developed by Drs. Lj Sheridan, Olga Leung, Miky Delaney and colleagues, with an educational broderick from [employer]. DEANGELO-7 Assessment Billing DEANGELO-7 Assessment Tool: DEANGELO-7 Assessment 62629 Review of Systems Const Denies chills and Denies fever(s) Eyes Denies blurry vision ENT Denies vertigo, Denies dizziness and Denies sore throat Card Denies chest pain at rest, Denies chest pain with activity, Denies diaphoresis, Denies dyspnea and Denies dyspnea on exertion Resp Denies cough, Denies dyspnea, Denies dyspnea on exertion and Denies wheezing GI Denies abdominal pain, Denies melena, Denies hematochezia, Denies constipation, Denies diarrhea and Denies loose stools Denies hematuria Musc Denies numbness and Denies tingling Skin/Breast Denies lesions Neuro Denies vertigo, Denies dizziness, Denies numbness and Denies tingling Psych Denies anxiety, Denies depression, Denies homicidal ideation, Denies suicidal ideation and Denies other (substance abuse) Aller/Immun Denies wheezing Physical exam (Primary Care) Vital Signs: Last Vital Signs Pulse 88 06/20/24 11:04 BP 142/80 H 06/20/24 11:04 Pulse Ox 96 06/20/24 11:04 BMI result Body Mass Index 23.8 Tobacco/Smoking Status: Tobacco use Status Tobacco use date assessed 06/20/24 06/20/24 11:05 Patient Tobacco Use Status Current everyday Tobacco 06/20/24 11:05 Tobacco use type Cigarette 06/20/24 11:05 e-Cigarette/Vaping Use Never Used 06/20/24 11:05 PHQ-9: PHQ-9 Score PHQ-9: Total score 9 06/20/24 11:22 Depression Screening Interpretation: Negative Thrive Assessment: Date of Thrive Assessment Date Thrive assessed 06/20/24 06/20/24 11:05 Currently or been in a relationship where the following occur: No concerns reported Const General: cooperative Nutritional Appearance: well nourished Orientation/consciousness: patient oriented x3 HENMT Head: Yes normal to inspection, Yes normocephalic and Yes atraumatic Ears: TM's normal bilaterally Eyes General: appearance normal, both eyes and all related structures Alignment and Position: alignment normal and position normal Neck Neck: Yes normal visual inspection, Yes no lymphadenopathy and Yes supple Resp Effort & Inspection: normal respiratory effort Auscultation: clear to auscultation bilaterally Cardio Other: faint systolic murmur Rate: regular rate Rhythm: regular rhythm Heart sounds: S1 normal heart sound present and S2 normal heart sound present GI Palpation (GI): Soft to palpation and nontender Auscultation: normal bowel sounds Other: refused LILI Male General Exam: Yes normal external exam Penis: normal penis Scrotum: scrotum normal, testes descended bilaterally and no inguinal hernias Testes: no testicular mass Skin Rashes: no rashes Neuro General: patient oriented x3, moves all extremities, no focal motor deficits and deep tendon reflexes 2+ bilaterally Romberg Test: Negative Psych Appearance: grossly normal Mental Status: mental status grossly normal Speech and movement: Normal speech and movement present Affect: normal affect Attitude: cooperative Thought process: Normal thought process present Thought content: Normal thought content present Insight: Good insight present (Psych) Judgement: Good judgement present (Psych) Assessment and Plan Assessment & Plan (1) Nicotine dependence, cigarettes, uncomplicated: Comment: (current smoker, onset 22yo, 1ppd x 35yrs, 30pyh) Code(s): F17.210 - Nicotine dependence, cigarettes, uncomplicated Plan: Referred for low-dose CT (2) HTN (hypertension): Code(s): I10 - Essential (primary) hypertension Plan: Will have pt monitor his BP at home Plan The patient agreed to the use of a adjunct faculty for medical terminology for this encounter. Scribed for MATEO Galindo by Lacy Roper adjunct faculty for medical terminology, on 06/20/2024 at 11:15 EST. Orders: Referrals Lung Cancer Screening Referral F17.210 - Nicotine dependence, cigarettes, uncomplicated Medications: New meloxicam 7.5 mg PO BID 30 days PRN 30 tabs 2RF joint pains Changed From losartan replaces prior dose of 50 mg 100 mg PO DAILY 30 tabs 0RF To losartan 100 mg PO DAILY 90 tabs 1RF Refilled amlodipine 10 mg PO DAILY 90 tabs 1RF Coding Level of Care Code Est Pt Prev Care 40-64y(17880) Diagnoses Nicotine dependence, cigarettes, uncomplicated F17.210 HTN (hypertension) I10 Additional Codes DEANGELO-7 Assessment Billing - DEANGELO-7 Assessment Tool: DEANGELO-7 Assessment 18619 ([id number])
[2024-06-20 11:35] VITALS: BP 136/80
== END 2024-06-20 11:40 | disposition home or self-care (01) ==
PROVIDERS: PCP Nurse Practitioner Family; Visit Provider Nurse Practitioner Family
DX: Z00.00 Encounter for general adult medical examination without abnormal findings (principal); F17.210 Nicotine dependence, cigarettes, uncomplicated; I10 Essential (primary) hypertension
CPT/HCPCS: 99396

== ENCOUNTER 2024-12-17 09:50 | Outpatient (REF) | payer OTHER, SELFPAY ==
--- OUTSIDE RECORDS SUMMARY | 2024-12-17 11:21 | XMS_ITS | Clinical Summary ---
Author Organization [facility] ity Address [address] [place] [address] Care Team Providers Care Sewer Tapper Name Role Phone Unavailable Primary Care Provider Unavailabl e Social History Tobacco Use Types Packs/Day Years Used Date Smoking Tobacco: Never Assessed Sex and Gender Information Value Date Recorded Sex Assigned at Not on file Legal Sex Male 9:49 AM EST Gender Identity Not on file Sexual Orientation Not on file Plan of Treatment Health Maintenance Due Date Last Done Comments DTaP,Tdap,and Td Vaccines (1 - Tdap) 1986 Hepatitis B Vaccines (1 of 3 - 19+ 3-dose series) 1986 Pneumococcal Vaccine: 50+ Ye ars (1 of 1 - PCV) 2017 Zoster Vaccines (1 of 2) 2017 COVID-19 Vaccine ( - 2023-2 5 season) 2024 Influenza Vaccine (#1) 2024 HIB Vaccines Aged Out No longer eligi ble based on patient's age to complete this topic HPV Vaccines Aged Out No longer eligi ble based on patient's age to complete this topic Hepatitis A Vaccines Aged Out No long er eligible based on patient's age to complete this topic IPV Vaccines Aged Out No longer eligi ble based on patient's age to complete this topic MMR Vaccines Aged Out No longer eligi ble based on patient's age to complete this topic Meningococcal ACWY Vaccine Aged Out N o longer eligible based on patient's age to complete this topic Meningococcal B Vacine Aged Out No lo nger eligible based on patient's age to complete this topic Pneumococcal Vaccine: Pediat rics (0 to 5 Years) and At-Risk Patients (6 to 64 Years) Aged Out No longer eligible b ased on patient's age to complete this topic RSV Immunization Patients Un jovan 20 months Aged Out No longer eligible b ased on patient's age to complete this topic Varicella Vaccines Aged Out No longer eligible based on patient's age to complete this topic
[2024-12-17 13:19] LABS: MANUAL DIFF FLAG NO
[2024-12-17 13:26] LABS: Basophils Absolute Auto 0.1 X10*3/uL (0.0-0.2); Basophils Percent Auto 0.7 % (0-2); Eosinophils Percent Auto 0.1 % (0-4); Hematocrit 37.7 % (42.0-52.0); Imm Gran Pct Auto 1.1 % (0.0-0.4); Lymphocytes Absolute Auto 2.2 X10*3/uL (1.2-4.9); Lymphocytes Percent Auto 23.9 % (20-40); Mean Corpuscular HGB Conc 34.5 g/dl (31.0-36.0); Mean Corpuscular Volume 87.1 fL (80.0-98.0); Mean Platelet Volume 9.1 fL (9.4-12.4); Monocytes Absolute Auto 1.1 X10*3/uL (0.1-1.2); Monocytes Percent Auto 12.2 % (2-11); Neutrophils Absolute Auto 5.7 x10*3/uL (2.0-8.3); Platelet Count 295 X10*3/uL (160-400); Red Blood Count 4.33 X10*6/uL (4.60-5.80); Red Cell Distribution Width 13.6 % (11.0-16.0); White Blood Count 9.2 X10*3/uL (4.8-10.8)
[2024-12-17 13:36] LABS: Appearance Urine Clear; Color Urine Yellow; Glucose Urine UA Negative (Negative); Leukocyte Esterase Urine Negative (Negative); Nitrite Urine Negative (Negative); PH 5.5 (5.0-9.0); Urine Blood Negative (Negative); Urine Ketones 15 mg/dL (Negative); Urine Protein Negative (Neg-Trace)
[2024-12-17 13:51] LABS: Alanine Aminotransferase 66 U/L (0-40); Albumin Level 4.5 g/dL (3.5-5.0); Alkaline Phosphatase 70 U/L (39-117); Anion Gap 14 (12-20); Aspartate Amino Transferase 64 U/L (5-37); Bilirubin Total 0.7 mg/dL (0.0-1.0); Blood Urea Nitrogen 10 mg/dL (9-16); Calcium 9.6 mg/dL (8.4-10.2); Carbon Dioxide 24 mmol/L (22-29); Chloride 104 mmol/L (96-108); Cholesterol 200 mg/dL (<200); Estimated Glomerular Filt Rate > 60; Glucose Fasting 85 mg/dL (60-99); HDL Cholesterol 98 mg/dL (>40); LDL Cholesterol Calculated 79 mg/dL (<100); Potassium 4.3 mmol/L (3.3-5.1); Sodium 138 mmol/L (135-145); Total Protein 7.4 g/dL (6.5-8.0); Triglycerides 118 mg/dL (<150)
[2024-12-17 13:57] LABS: Prostate Specific Antigen Scr 1.02 ng/mL (<0.05-4.0)
[2024-12-17 14:06] LABS: TSH reflex Free T4 0.62 uIU/mL (0.32-4.0)
== END 2024-12-17 09:51 | disposition home or self-care (01) ==
LOC: HO.HMGCLDS 09:50
PROVIDERS: PCP Nurse Practitioner Family; Visit Provider Nurse Practitioner Family
DX: F41.9 Anxiety disorder, unspecified (principal); F32.9 Major depressive disorder, single episode, unspecified; I10 Essential (primary) hypertension
CPT/HCPCS: 36415; 80053; 80061; 81003; 84153; 84443; 85025; 96127; 99212

== ENCOUNTER 2024-12-17 10:11 | Outpatient (AMB) | payer OTHER, SELFPAY ==
[2024-12-17 10:17] VITALS: BP 150/90; PULSE 80; TEMP 36.6; O2SAT 97; BMI 26.1
--- NOTE | 2024-12-17 10:17 | A.OFFPC_ITS ---
Vital Signs 12/17/24 10:17 Height 5 ft 5 in Weight 157 lb BMI 26.1 BP 150/90 H Blood Pressure Location Lt brachial Position Sitting Pulse 80 Pulse Source Pulse Oximeter Temp 97.8 F Temp Source Oral Pulse Oximetry (%) 97 Intake Visit Reasons: 6M F/U Accompanied by: Self / Same As Patient Allergies bee pollen [bee stings] Allergy (Verified 12/17/24 10:22) Swelling Medication List - Last Reconciled 12/17/24 by JEZ Ashraf- acetaminophen 1,000 mg PO BID PRN amlodipine 10 mg PO DAILY epinephrine (EpiPen 2-Dre) 0.3 mg (0.3 mL) IM .q5min PRN losartan 100 mg PO DAILY Tobacco use date assessed: 12/17/24 Dental Screening Dental Screen Date: 12/17/24 Did you have a dental visit in the last 12 months?: Yes Did you have a dental problem in the last 6 months where you did not have access to dental care?: No Was dental information given to patient?: Patient has dentist HPI 6M F/U HPI Details Chief Complaint Severe anxiety limiting daily activities. History of Present Illness The patient is a 59-year-old male presenting with anxiety and essential hypertension. His anxiety has intensified over the last four months, principally confining him to his home and hindering social interactions. His psychiatric background includes a significant history that led to hospitalization years ago. He reports considerable emotional distress associated with his anxiety, though he denies physical symptoms such as chest pain or respiratory difficulties. Previously, he was managed with buspirone, but the rationale for its discontinuation and the specific trajectory of his past psychiatric interventions remain unclear. Following today's assessment, buspirone therapy has been reinitiated. Current anxiety management has taken precedence over hypertension management due to its heightened severity. In one instance, the patient described leaving a social event after less than 15 minutes early because of overwhelming anxiety, despite admitting no thoughts of self-harm or harm to others. Social History - The patient reports severe anxiety lina t considerably limits his ability to leave the house and engage in social activities. Health Maintenance Review of Systems - Psychiatric: Reports severe anxiety al most to the point of tears. Denies suicidal and homicidal ideation. Physical Exam General: Cooperative, healthy appearing, comfortable, no acute distress and well developed, but very anxious, almost to tears Orientation: Patient oriented x3 Limitations: No limitations Head: Normal to inspection Ears: Hearing grossly normal bilaterally Nose: Normal external nose present Face and sinus: Normal facial exam Eyes: Appearance normal, both eyes and all related structures Neck: Normal visual inspection and Yes full ROM Respiratory: Normal respiratory effort and able to speak in complete sentences. Clear to auscultation bilaterally Cardiovascular: Regular rate and rhythm. Normal S1 and S2 GI: Normal to inspection. Soft to palpation and nontender Skin: No rashes or lesions noted Neuro: Patient oriented x3 Extremities: Normal to inspection Results Plan My approach focuses primarily on managing the patient's significant anxiety. Buspirone has been reintroduced as part of his treatment plan to address his acute anxiety symptoms. Arrangements have been made for our behavioral health team to initiate further psychiatric support, including potential telehealth assessment. The patient plans to present to the ER for consideration of inpatient care, and we will monitor his status and response to treatment through our hospital's system. Discussion Notes Today, I discussed with the patient the severity of his anxiety and the necessity to prioritize its management. I emphasized the reintroduction of buspirone to mitigate his symptoms and reassured him of the intervention initiatives by our behavioral health team to establish telehealth connections and additional psychiatric support. I reviewed with him the plan for ER evaluation to determine potential inpatient treatment while assuring him of continued monitoring. The patient understands the current plan and agrees with the proposed course of action. Patient Instructions - Follow the reintroduced buspirone greg men as discussed. - Plan to visit the ER as scheduled for psychiatric evaluation. - Await contact from behavioral health f or further assistance via telehealth services. - Report any worsening of symptoms or ne w concerns immediately. [facility] Medical History HTN (hypertension) Dyslipidemia Anemia Nicotine dependence, cigarettes, uncomplicated Anxiety and depression History of ATN Stuttering Dislocation of right shoulder joint Surgical History History of excision of lesion Family History Mother Breast cancer HTN (hypertension) Father Unknown family medical history Social History Household Members: None Household Members Other:: lives alone Housing: Apartment Do you presently have visiting nurse or other home services: No Alcohol intake: current Alcohol intake frequency: does not drink Alcohol type: beer Patient Tobacco Use Status: Current everyday Tobacco user Tobacco use type: Cigarette Cigarette Packs Per Day: 1 e-Cigarette/Vaping Use: Never Used Second Hand Smoke Exposure: No Substance Use Type: Marijuana service: No Current occupational status: unemployed and disabled 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 1. Little interest or pleasure in doing things: nearly every day 2. Feeling down, depressed, or hopeless: nearly every day 3. Trouble falling or staying asleep, or sleeping too much: nearly every day 4. Feeling tired or having little energy: nearly every day 5. Poor appetite or overeating: more than half the days 6. Feeling bad about yourself - or that you are a failure or have let yourself or your family down: not at all 7. Trouble concentrating on things, such as reading the newspaper or watching television: not at all 8. Moving or speaking so slowly that other people could have noticed. Or the opposite - being so fidgety or restless that you have been moving around a lot m ore than usual: not at all 9. Thoughts that you would be better off or of hurting yourself in some way: not at all Total score: 14 Depression Screening Interpretation: Positive Depression Screening Done: Yes 65460 - PHQ-9 Billing: Yes Source: Developed by Drs. Lj Sheridan, Olga Leung, Miky Delaney and colleagues, with an educational broderick from [employer]. Thrive Questionnaire Date Thrive assessed: 12/17/24 I am a: Patient What is your living situation today?: I have a place to live, but I am worried about losing it in the future Within the past 12 months, did the food you bought not last and you didn't have the money to get more?: Never true Within the past 12 months, did you worry whether your food would run out before you got money to buy more?: Never true Do you have trouble paying for medicines?: No Do you have trouble getting transportation to medical appointments?: No Do you have trouble paying your heating and electricity bill?: No Do you have trouble taking care of your child, family member or friend?: No Do you have trouble with day-to-day activities such as bathing, preparing meals, shopping, managing finances, etc.?: No Are you currently unemployed and looking for a job?: No Are you interested in more education?: No Please select the resources that you would like help with: Housing/Intermediate Currently or been in a relationship where the following occur: No concerns reported THRIVE Score: 1 AUDIT C Alcohol Use Questionnaire (AUDIT-C) 1. How often do you have a drink containing alcohol?: 2-3 times a week 2. How many drinks containing alcohol do you have on a typical day when you are drinking?: 1 or 2 3. How often do you have six or more drinks on one occasion?: Never Total Score: 3 Score Reviewed/Action Taken: Yes DEANGELO-7 AMB Questionnaire DEANGELO-7 Date DEANGELO - 7 assessed: 12/17/24 Feeling nervous, anxious, or on edge: 1 = Several days Not being able to stop or control worryin = Several days Worrying too much about different things: 1 = Several days Trouble relaxin = Several days Being so restless that it is hard to sit still: 0 = Not at all Becoming easily annoyed or irritable: 0 = Not at all Feeling afraid as if something awful might happen: 1 = Several days Total DEANGELO-7 score (0-4 normal; 5-9 mild; 10-14 moderate; 15-21 severe): 5 Source: Developed by Drs. Lj Sheridan, Olga Leung, Miky Delaney and colleagues, with an educational broderick from [employer]. DEANGELO-7 Assessment Billing DEANGELO-7 Assessment Tool: DEANGELO-7 Assessment 52885 Physical exam (Primary Care) Vital Signs: Last Vital Signs Temp 97.8 F 12/17/24 10:17 Pulse 80 12/17/24 10:17 BP 150/90 H 12/17/24 10:17 Pulse Ox 97 12/17/24 10:17 BMI result Body Mass Index 26.1 Tobacco/Smoking Status: Tobacco use Status Tobacco use date assessed 12/17/24 12/17/24 10:23 Patient Tobacco Use Status Current everyday Tobacco 12/17/24 10:19 Tobacco use type Cigarette 12/17/24 10:19 e-Cigarette/Vaping Use Never Used 12/17/24 10:19 PHQ-9: PHQ-9 Score PHQ-9: Total score 14 12/17/24 10:23 Depression Screening Interpretation: Positive Thrive Assessment: Date of Thrive Assessment Date Thrive assessed 12/17/24 12/17/24 10:23 Currently or been in a relationship where the following occur: No concerns reported Coding Level of Care Code Est Pt Level 3 (40409) Diagnoses Anxiety and depression F41.9; F32.9 HTN (hypertension) I10 Additional Codes DEANGELO-7 Assessment Billing - DEANGELO-7 Assessment Tool: DEANGELO-7 Assessment 36083 ([id number]) PHQ-9 - 85857 - PHQ-9 Billing: Yes ([id number]) Assessment & Plan Assessment & Plan (1) Anxiety and depression: Code(s): F41.9 - Anxiety disorder, unspecified; F32.9 - Major depressive disorder, single episode, unspecified Category: Medical (2) HTN (hypertension): Code(s): I10 - Essential (primary) hypertension Category: Medical Plan . Medications: New buspirone 7.5 mg PO BID 60 tabs 2RF 30 days
--- OUTSIDE RECORDS SUMMARY | 2024-12-17 12:07 | XMS_ITS | Clinical Summary ---
Author Organization [facility] ity Address [address] [place] [address] Care Team Providers Care Underwriting Assistant Name Role Phone Unavailable Primary Care Provider [...]
== END 2024-12-17 12:23 | disposition home or self-care (01) ==
PROVIDERS: PCP Nurse Practitioner Family; Visit Provider Nurse Practitioner Family
DX: F41.9 Anxiety disorder, unspecified (principal); F32.9 Major depressive disorder, single episode, unspecified; I10 Essential (primary) hypertension

== ENCOUNTER 2024-12-18 09:55 | Inpatient (IN) | payer OTHER, SELFPAY ==
[2024-12-18 09:59] VITALS: BP 156/99; PULSE 106; RESP 18; TEMP 36.6; O2SAT 98; BMI 25.8
--- NOTE | 2024-12-18 10:02 | ED_ITS ---
HPI - Psych General Chief Complaint: Psychiatric Symptoms Stated Complaint: Crisis Time Seen by Provider: 12/18/24 10:18 Source: patient Mode of arrival: ambulatory Limitations: no limitations History of Present Illness ED Provider: Tara Wyatt PA-C HPI Narrative: Patient is a 59 year old assigned male at with a history of anxiety, depression, HTN, and anemia presenting to the emergency department today with concerning of feeling off and requesting to talk to a psychiatrist. Patient states that he has been off his meds for months and has not been able to leave his bedroom since August 2024. Patient denies any dizziness, lightheadedness, abdominal pain, nausea, vomiting, fever, chills, blurry vision, double vision, loss of vision, chest pain, difficulty breathing, shortness of breath, back pain, night sweats, pain with urination, increased urinary frequency, increased urinary urgency, blood in his urine or stool, syncope or a near syncopal episode, recent trauma or falls, bowel incontinence, bladder incontinence, or any other complaints at this time. MD complaint: feels depressed Related Data Home Medications ?Medication ?Instructions ?Recorded ?Confirmed acetaminophen 500 mg capsule 1,000 mg PO BID PRN Pain 04/17/24 12/18/24 Previous Rx's ?Medication ?Instructions ?Recorded epinephrine 0.3 mg/0.3 mL 0.3 mg (0.3 mL) IM .q5min PRN 04/18/24 injection, auto-injector (EpiPen anaphylaxis #2 ea 2-Dre) amlodipine 10 mg tablet 10 mg PO DAILY #90 tabs 06/20/24 losartan 100 mg tablet 100 mg PO DAILY #90 tabs 06/20/24 buspirone 7.5 mg tablet 7.5 mg PO BID 30 days #60 tabs 12/17/24 Allergies Allergy/AdvReac Type Severity Reaction Status Date / Time bee pollen [bee stings] Allergy Swelling Verified 12/18/24 09:59 Review of Systems 2 Constitutional: Constitutional: Reports no additional constitutional complaints, Denies chills, Denies fever(s) and Denies night sweats Eyes: Eyes: Reports no additional eye complaints, Denies blurry vision, Denies change in vision, Denies diplopia, Denies eye discharge, Denies loss of vision and Denies eye pain ENT: Denies dizziness Cardiovascular: Cardiovascular: Reports no additional cardiovascular complaints, Denies chest pain, Denies lightheadedness, Denies Loss of Consciousness and Denies dyspnea Respiratory: Respiratory: Reports no additional respiratory complaints and Denies dyspnea Gastrointestinal: Gastrointestinal: Reports no additional gastrointestinal complaints, Denies abdominal pain, Denies melena, Denies hematochezia, Denies change in bowel habits and Denies change in stool character Genitourinary: Genitourinary: Reports no additional male genitourinary complaints, Denies hematuria, Denies oliguria, Denies difficulty urinating, Denies dysuria, Denies urinary frequency, Denies urinary hesitancy, Denies urinary incontinence and Denies urinary urgency Musculoskeletal: Musculoskeletal: Reports no additional musculoskeletal complaints, Denies numbness and Denies tingling Neurologic: Denies dizziness, Denies loss of vision, Denies numbness and Denies tingling Psychiatric: Psychiatric: Reports anxiety, Reports depression, Denies homicidal ideation and Denies suicidal ideation Endocrine: Endocrine: Reports no additional endocrine complaints Hematologic/Lymphatic: Hematologic/Lymphatic: Reports no additional hematologic/lymphatic complaints Allergic/Immunologic: Allergic/Immunologic: Reports no additional allergic/immunologic complaints [facility] Past Medical History Attestation statement: The following information was validated with the patient. Source: old records reviewed and nursing notes reviewed Medical History HTN (hypertension) Dyslipidemia Anemia Nicotine dependence, cigarettes, uncomplicated Anxiety and depression History of ATN Stuttering Dislocation of right shoulder joint Surgical History History of excision of lesion Family History Family History Mother Breast cancer HTN (hypertension) Father Unknown family medical history Social History Social History Household Members: None Household Members Other:: lives alone Housing: Apartment Do you presently have visiting nurse or other home services: No Alcohol intake: current Alcohol intake frequency: 0-2 drinks per day Alcohol type: beer Patient Tobacco Use Status: Current everyday Tobacco user Tobacco use type: Cigarette Cigarette Packs Per Day: 1 Smoked in Last 30 Days: No e-Cigarette/Vaping Use: Never Used Second Hand Smoke Exposure: No Use of substances other than those prescribed or required for medical reasons: No Substance Use Type: Marijuana Advance Directives: No Advance Directives Information Provided: Yes Do you have a plan to hurt others: No Plan service: No Current occupational status: unemployed and disabled 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 Cognitive needs: No Hearing needs: No Vision needs: No Physical Exam 2 Vital Signs: Vital Signs: Last Vital Signs Temp 98.4 F 12/18/24 12:45 Pulse 58 12/18/24 12:45 Resp 14 12/18/24 12:45 BP 107/59 L 12/18/24 12:45 Pulse Ox 94 12/18/24 12:45 O2 Del Method Room Air 12/18/24 12:45 BMI result Body Mass Index 25.8 Const: General: cooperative, no acute distress, alert and awake Nutritional Appearance: well nourished Orientation/consciousness: patient oriented x3 Limitations: no limitations HEENT: Head: Yes normal to inspection and Yes atraumatic Ears: hearing grossly normal bilaterally and external ears normal General nose exam: Normal external nose present, no nasal discharge noted and no epistaxis Face and sinus: Yes normal facial exam, No abrasion and No laceration Mouth: Normal oral and palatal mucosa present, no drooling and no muffled voice Eyes: General: appearance normal, both eyes and all related structures P eriorbital: periorbital findings normal Eyelids: Yes eyelids normal C onjunctivae: conjunctivae normal Pupils: Equal, round and reactive pupils present EOM: EOMs intact bilaterally Neck: Neck: Yes normal visual inspection, Yes full ROM and Yes no lymphadenopathy Chest: Chest palpation & inspection: normal inspection of the chest Resp: Effort & Inspection: normal respiratory effort and able to speak in complete sentences GI: Inspection: Yes normal to inspection Neuro: General: patient oriented x3, moves all extremities and CN's II-XI intact bilaterally Cranial nerves: Yes Equal, round and reactive pupils present Cognition (Neuro): normal cognition Extrem: General: Yes normal to inspection, Yes full ROM and Yes capillary refill normal Psych: Appearance: grossly normal Mental Status: mental status grossly normal Affect: normal affect Attitude: Belligerent attititude/behavior present Course Course Course Narrative: This is a Rapid Medical Examination (RME) performed by Reza Clark PA-C in triage. Full HPI, ROS, assessment and treatment plan per primary provider in the Main ED. 59 yo male hx HTN, anxiety/ depression here for crisis. denies si/hi. denies ah/vh/th. states he stopped taking his medications. no physical complaints. Plan: med clearance, care team eval Medical Decision Making Medical Decision Making [facility] Narrative: Patient is a 59 year old assigned male at with a history of anxiety, depression, HTN, and anemia presenting to the emergency department today with concerning of feeling off and requesting to talk to a psychiatrist. Patient's physical exam was as noted in the physical exam portion of this note. Patient's blood work was unremarkable. I explained my physical exam findings as well as all test results to the patient. I answered all questions asked by the patient. Patient was evaluated by the CARE team who recommended inpatient level of care. Patient is currently a psychiatric bed search. Differential Diagnosis Differential Diagnoses: The differential diagnosis associated with the presentation includes Depression Admission/Observation Consideration of admission/observation: Escalation of care including admission/observation considered Patient is currently awaiting a psychiatric admission. Consult Healthcare Provider Management of the patient was discussed with: Behavioral Health Provider (spoke to the CARE team as noted in the MDM Rationale portion of this note. ) Lab Data [facility] Lab Attestation statement: I reviewed the patient's lab results. My interpretation of these results are in the MDM Rationale portion of this note. 12/18/24 10:44 12/18/24 10:44 Labs: Lab Results 12/18/24 12/18/24 Range/Units 10:24 10:44 WBC 9.8 (4.8-10.8) X10*3/uL RBC 4.34 L (4.60-5.80) X10*6/uL Hgb 12.8 L (14.0-18.0) g/dl Hct 37.0 L (42.0-52.0) % MCV 85.3 (80.0-98.0) fL MCH 29.5 (27.0-33.0) pg MCHC 34.6 (31.0-36.0) g/dl RDW 13.4 (11.0-16.0) % Plt Count 280 (160-400) X10*3/uL MPV 8.7 L (9.4-12.4) fL Immature Gran % (Auto) 1.1 H (0.0-0.4) % Neut % (Auto) 68.3 (45-73) % Lymph % (Auto) 20.0 (20-40) % [place] % (Auto) 10.0 (2-11) % Eos % (Auto) 0.1 (0-4) % Baso % (Auto) 0.5 (0-2) % Lymph # (Auto) 2.0 (1.2-4.9) X10*3/uL [place] # (Auto) 1.0 (0.1-1.2) X10*3/uL Eos # (Auto) 0.0 (0.0-0.4) X10*3/uL Baso # (Auto) 0.1 (0.0-0.2) X10*3/uL Abs Immat Gran (auto) 0.11 H (0.00-0.03) X10*3/uL Absolute Neuts (auto) 6.7 (2.0-8.3) x10*3/uL Absolute Nucleated RBC 0.000 (0.0-0.012) X10*3/uL Nucleated RBC % (auto) 0.0 (0.0-0.2) /100WBC Sodium 140 (135-145) mmol/L Potassium 4.5 (3.3-5.1) mmol/L Chloride 107 (96-108) mmol/L Carbon Dioxide 24 (22-29) mmol/L Anion Gap 14 (12-20) BUN 15 (9-16) mg/dL Creatinine 0.79 (0.5-1.4) mg/dL Estim Creat Clear Calc 89.7 Estimated GFR > 60 Random Glucose 106 (60-115) mg/dL Calcium 9.8 (8.4-10.2) mg/dL Magnesium 1.9 (1.6-2.6) mg/dL Total Bilirubin 0.5 (0.0-1.0) mg/dL AST 62 H (5-37) U/L ALT 71 H (0-40) U/L Alkaline Phosphatase 79 (39-117) U/L Total Protein 7.6 (6.5-8.0) g/dL Albumin 4.6 (3.5-5.0) g/dL Lipase 73 (8-78) U/L Urine Color Yellow Urine Appearance Clear Urine pH 6.0 (5.0-9.0) Ur Specific [place] 1.015 (1.005-1.025) Urine Protein Negative (Neg-Trace) mg/dL Urine Glucose (UA) Negative (Negative) mg/dL Urine Ketones Trace (Negative) mg/dL Urine Blood Negative (Negative) Urine Nitrite Negative (Negative) Ur Leukocyte Esterase Negative (Negative) Salicylates < 5.0 L (15-30) mg/dL Urine Opiates Screen Not Detected (Not Detect) Ur Buprenorphine Scrn Not Detected (Not Detect) ng/mL Ur Oxycodone Screen Not Detected (Not Detect) ng/mL Urine Methadone Screen Not Detected (Not Detect) ng/mL Urine Fentanyl Screen Not Detected (Not Detect) Acetaminophen 4 (<30) mcg/mL Ur Barbiturates Screen Not Detected (Not Detect) Ur Phencyclidine Scrn Not Detected (Not Detect) Ur Amphetamines Screen Not Detected (Not Detect) U Benzodiazepines Scrn Not Detected (Not Detect) Urine Cocaine Screen Not Detected (Not Detect) U Marijuana (THC) Screen POSITIVE H (Not Detect) Ethyl Alcohol < 10 mg/dL Discharge Plan Discharge Clinical Impression: Depression Patient Disposition: Still a Patient Prescriptions: No Action acetaminophen 500 mg Capsule 1,000 mg PO BID PRN (Reason: Pain) epinephrine [EpiPen 2-Dre] 0.3 mg/0.3 mL auto-injector 0.3 mg IM .q5min PRN (Reason: anaphylaxis) Qty: 2 11RF amlodipine 10 mg tablet 10 mg PO DAILY Qty: 90 1RF losartan 100 mg tablet 100 mg PO DAILY Qty: 90 1RF buspirone 7.5 mg tablet 7.5 mg PO BID 30 Days Qty: 60 2RF Interventions: [place]-Suicide Risk Severity Scale Last Done: 12/18/24 11:38 Print Language: Irish
[2024-12-18 10:16] VITALS: BP 157/88; PULSE 95; RESP 14; TEMP 36.8; O2SAT 98
[2024-12-18 10:32] LABS: Appearance Urine Clear; Color Urine Yellow; Glucose Urine UA Negative (Negative); Leukocyte Esterase Urine Negative (Negative); Nitrite Urine Negative (Negative); Specific Gravity - Urine 1.015 (1.005-1.025); Urine Blood Negative (Negative); Urine Ketones Trace mg/dL (Negative); Urine Protein Negative (Neg-Trace)
[2024-12-18 10:48] LABS: MANUAL DIFF FLAG NO
[2024-12-18 10:54] LABS: Basophils Absolute Auto 0.1 X10*3/uL (0.0-0.2); Basophils Percent Auto 0.5 % (0-2); Eosinophils Percent Auto 0.1 % (0-4); Hemoglobin 12.8 g/dl (14.0-18.0); Imm Gran Abs Auto 0.11 X10*3/uL (0.00-0.03); Imm Gran Pct Auto 1.1 % (0.0-0.4); Mean Corpuscular HGB Conc 34.6 g/dl (31.0-36.0); Mean Corpuscular Hemoglobin 29.5 pg (27.0-33.0); Mean Corpuscular Volume 85.3 fL (80.0-98.0); Mean Platelet Volume 8.7 fL (9.4-12.4); Neutrophils Absolute Auto 6.7 x10*3/uL (2.0-8.3); Neutrophils Percent Auto 68.3 % (45-73); Platelet Count 280 X10*3/uL (160-400); Red Blood Count 4.34 X10*6/uL (4.60-5.80); Red Cell Distribution Width 13.4 % (11.0-16.0); White Blood Count 9.8 X10*3/uL (4.8-10.8)
[2024-12-18 10:58] LABS: Amphetamine Screen Urine Not Detected (Not Detect); Barbiturates, Urine Not Detected (Not Detect); Benzodiazepines Screen Urine Not Detected (Not Detect); Buprenorphine Scr Not Detected (Not Detect); Cannabinoid Screen Urine POSITIVE (Not Detect); Cocaine Screen Urine Not Detected (Not Detect); Fentanyl, urine Not Detected (Not Detect); Methadone Screen, Urine Not Detected (Not Detect); Opiate Screen Urine Not Detected (Not Detect); Oxycodone Screen Urine Not Detected (Not Detect); Phencyclidine Screen Urine Not Detected (Not Detect)
[2024-12-18 11:05] LABS: Ethanol < 10 mg/dL
[2024-12-18 11:07] LABS: Alanine Aminotransferase 71 U/L (0-40); Albumin Level 4.6 g/dL (3.5-5.0); Alkaline Phosphatase 79 U/L (39-117); Anion Gap 14 (12-20); Aspartate Amino Transferase 62 U/L (5-37); Bilirubin Total 0.5 mg/dL (0.0-1.0); Blood Urea Nitrogen 15 mg/dL (9-16); Calcium 9.8 mg/dL (8.4-10.2); Carbon Dioxide 24 mmol/L (22-29); Chloride 107 mmol/L (96-108); Creatinine Clr Calc Pharmacy 89.7; Estimated Glomerular Filt Rate > 60; Glucose Random 106 mg/dL (60-115); Lipase 73 U/L (8-78); Magnesium 1.9 mg/dL (1.6-2.6); Potassium 4.5 mmol/L (3.3-5.1); Sodium 140 mmol/L (135-145); Total Protein 7.6 g/dL (6.5-8.0)
[2024-12-18 11:11] LABS: Acetaminophen LAB 4 mcg/mL (<30); Salicylate < 5.0 mg/dL (15-30)
[2024-12-18 12:45] VITALS: BP 107/59; PULSE 58; RESP 14; TEMP 36.9; O2SAT 94
--- OUTSIDE RECORDS SUMMARY | 2024-12-18 12:56 | XMS_ITS | Clinical Summary ---
Author Organization [facility] ity Address [address] [place] [address] Care Team Providers Care Purchasing Supervisor Name Role Phone Unavailable Primary Care Provider [...]
--- NOTE | 2024-12-18 13:56 | ECG_ITS ---
Test Reason : chest pain Blood Pressure : */* mmHG Vent. Rate : 88 BPM Atrial Rate : 88 BPM P-R Int : 170 ms QRS Dur : 86 ms QT Int : 332 ms P-R-T Axes : 74 50 57 degrees QTcB Int : 401 ms Normal sinus rhythm Minimal voltage criteria for LVH, may be normal variant ( Sokolow-Ludwig ) Septal infarct (cited on or before 17-Apr-2024) Abnormal ECG When compared with ECG of 17-Apr-2024 12:28, No significant change was found Referred By: Tara Wyatt Electronically Signed By: SARBJIT DEXTER MD
--- NOTE | 2024-12-18 15:05 | MHC.CARE ---
Patient evaluated by the CARE Team, disposition inpatient psychiatric treatment. ED provider KATHIE Emery updated and in agreement with plan.
[2024-12-18] MEDS: Nicotine 21 MG PATCH.TD24 TRANSDERMA (16:01)
[2024-12-18 16:50] VITALS: BP 150/85; PULSE 89; RESP 18; TEMP 36.8; O2SAT 98
[2024-12-18] MEDS: hydrOXYzine HCL 25 MG TABLET PO (16:59)
[2024-12-18 17:40] VITALS: BMI 25.6
--- NOTE | 2024-12-18 17:40 | PC.ADMIT ---
Pt arrived on the unit at 1644, referred from [facility]. Pt self presented d/t increase in depression and anxiety. Pt reports he has been isolating in his bed for the last several months, has not been taking meds, attending to ADLs or leaving his house. Pt reports having stopped prozac in August (same time he began isolating) for no known reason. Pt has been trying to find his own therapist/psychiatrist and is on a 6+ month wait list and cant take it anymore . Pt reports only leaving his house for groceries, and only first thing in the morning so he doesnt run into a lot of people. Pt reporting frequent panic attacks at home. Pt has been self medication with marijuana and alcohol. Tox screen only positive for marijuana. Pt reports drinking three beers every night. Pt denies current withdrawal symptoms, reports he will let staff know if this changes. Pt was calm, cooperative with admission, declines flu shot. Pt isolative to room for rest of shift as that is where he feels most comfortable.
[2024-12-18 19:53] VITALS: BP 165/89; PULSE 80; RESP 16; TEMP 36.4; O2SAT 99
[2024-12-18] MEDS: traZODone HCL 50 MG TABLET PO (21:31)
[2024-12-19] MEDS: traZODone HCL 50 MG TABLET PO ×3 (01:27→22:17)
[2024-12-19] MEDS: hydrOXYzine HCL 25 MG TABLET PO ×3 (01:27→14:54)
[2024-12-19 07:00] VITALS: BMI 25.7
[2024-12-19 08:00] VITALS: BP 179/95; PULSE 85; RESP 18; TEMP 37; O2SAT 99
[2024-12-19] MEDS: amLODIPine Besylate 10 MG TABLET PO (08:21)
[2024-12-19] MEDS: Losartan Potassium 50 MG TABLET 100 MG PO (08:21)
[2024-12-19 08:38] LABS: Estimated Average Glucose 94 mg/dL; Hemoglobin A1C 113.1932 umol/L; Hemoglobin A1c % 4.9 % (<6.0)
[2024-12-19 08:44] LABS: Cholesterol 217 mg/dL (<200); HDL Cholesterol 95 mg/dL (>40); LDL Cholesterol Calculated 92 mg/dL (<100); Triglycerides 152 mg/dL (<150)
[2024-12-19] MEDS: Magnesium Hydrox/Alum Hydrox 30 ML ORAL.SUSP PO (09:10)
[2024-12-19] MEDS: Nicotine 21 MG PATCH.TD24 TRANSDERMA (09:11)
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
[2024-12-19] MEDS: Acetaminophen 325 MG TABLET 975 MG PO ×2 (10:30→18:00)
[2024-12-19] MEDS: Milk of Magnesia 30 ML ORAL.SUSP PO (11:03)
[2024-12-19 13:49] LABS: Influenza A PCR NEGATIVE (Negative); Influenza B PCR NEGATIVE (Negative); Resp Syncy Virus RNA Qual PCR NEGATIVE (Negative); SARS COV2 PCR INHOUSE NEGATIVE (Negative)
[2024-12-19 16:25] VITALS: BP 196/119
[2024-12-19] MEDS: FLUoxetine HCl 10 MG CAPSULE PO (16:25)
[2024-12-19] MEDS: cloNIDine HCL 0.1 MG TABLET PO ×2 (16:25→21:12)
[2024-12-19 17:16] VITALS: BP 180/101
[2024-12-19] MEDS: hydrALAZINE HCl 10 MG TABLET PO (17:16)
[2024-12-19 17:56] VITALS: BP 148/93; PULSE 101
[2024-12-19 19:30] VITALS: BP 160/96; PULSE 100; RESP 16; TEMP 37; O2SAT 97
[2024-12-19 21:12] VITALS: BP 160/96
[2024-12-19] MEDS: busPIRone HCl 5 MG TABLET PO (21:12)
[2024-12-20] VITALS (7 sets, daily range): BP systolic 115–161; BP diastolic 68–93; PULSE 76–88; RESP 16; TEMP 36.3–36.9; O2SAT 95–99
[2024-12-20] MEDS: cloNIDine HCL 0.1 MG TABLET PO ×3 (03:36→20:24)
[2024-12-20] MEDS: FLUoxetine HCl 20 MG CAPSULE PO ×2 (09:00→15:14)
[2024-12-20] MEDS: amLODIPine Besylate 10 MG TABLET PO (09:00)
[2024-12-20] MEDS: busPIRone HCl 5 MG TABLET PO (09:01)
[2024-12-20] MEDS: Losartan Potassium 50 MG TABLET 100 MG PO (09:01)
--- NOTE | 2024-12-20 09:30 | HO.PSYCHPN ---
Subjective Subjective Date of Service: 12/20/24 Reason For Visit: Depression Interim History: Met with patient; discussed with team Patient remains very anxious and played with worries that people are thinking about him, judging him, thinking negative thoughts about; intellectually knows it is not true but can not stop feeling it. This remains more about worry and does not seem to be intrusive thoughts. Patient trying to force himself to go to groups and says he has been a little more successful with clonidine though it only takes the edge off his anxiety a little bit. Discussed medication options, risks/side effects and agrees to titrating Prozac and trial of Zyprexa Mental Status Exam Mental Status Exam Narrative: Pt is alert and oriented; behavior is isolative, but cooperative on approach; calm; patient is not in distress; dressed in hospital attire, bald, adequate hygiene; mood is described as very anxious... and affect congruent, downcast, anxious; eye contact appropriate; Speech is with hint of a stutter; otherwise normal rate, volume and prosody and not pressured; psychomotor retardation present; thought process is organized and goal directed; Thought content is on worries of people judging him; tx; otherwise pertinent to relevant topics and without any other delusional content; denies any SI/HI/AVH; There is no evidence of perceptual disturbance. Patients insight and judgment impaired. Diagnostics Vital Signs (24Hr): Vital Signs - 24 hr 12/19/24 16:25 12/19/24 17:16 12/19/24 17:56 Temperature Pulse Rate 101 H Respiratory Rate Blood Pressure 196/119 H 180/101 H 148/93 H Pulse Oximetry Oxygen Delivery Method 12/19/24 19:30 12/19/24 21:12 12/20/24 03:36 Temperature 98.6 F Pulse Rate 100 Respiratory Rate 16 Blood Pressure 160/96 H 160/96 H 161/93 H Pulse Oximetry 97 Oxygen Delivery Method Room Air 12/20/24 09:00 12/20/24 09:01 Temperature Pulse Rate Respiratory Rate Blood Pressure 115/68 115/68 Pulse Oximetry Oxygen Delivery Method BMI result Body Mass Index 25.7 Labs 12/18/24 10:44 12/18/24 10:44 Labs: Laboratory Results - last 48 hr 12/18/24 12/18/24 12/19/24 10:24 10:44 08:09 WBC 9.8 RBC 4.34 L Hgb 12.8 L Hct 37.0 L MCV 85.3 MCH 29.5 MCHC 34.6 RDW 13.4 Plt Count 280 MPV 8.7 L Immature Gran % (Auto) 1.1 H Neut % (Auto) 68.3 Lymph % (Auto) 20.0 [place] % (Auto) 10.0 Eos % (Auto) 0.1 Baso % (Auto) 0.5 Lymph # (Auto) 2.0 Tyler # (Auto) 1.0 Eos # (Auto) 0.0 Baso # (Auto) 0.1 Abs Immat Gran (auto) 0.11 H Absolute Neuts (auto) 6.7 Absolute Nucleated RBC 0.000 Nucleated RBC % (auto) 0.0 Sodium 140 Potassium 4.5 Chloride 107 Carbon Dioxide 24 Anion Gap 14 BUN 15 Creatinine 0.79 Estim Creat Clear Calc 89.7 Estimated GFR > 60 Random Glucose 106 Estimat Average Glucose 94 Hemoglobin A1c % 4.9 Calcium 9.8 Magnesium 1.9 Total Bilirubin 0.5 AST 62 H ALT 71 H Alkaline Phosphatase 79 Total Protein 7.6 Albumin 4.6 Triglycerides 152 H Cholesterol 217 H LDL Cholesterol, Calc 92 HDL Cholesterol 95 Lipase 73 Urine Color Yellow Urine Appearance Clear Urine pH 6.0 Ur Specific [place] 1.015 Urine Protein Negative Urine Glucose (UA) Negative Urine Ketones Trace Urine Blood Negative Urine Nitrite Negative Ur Leukocyte Esterase Negative Salicylates < 5.0 L Urine Opiates Screen Not Detected Ur Buprenorphine Scrn Not Detected Ur Oxycodone Screen Not Detected Urine Methadone Screen Not Detected Urine Fentanyl Screen Not Detected Acetaminophen 4 Ur Barbiturates Screen Not Detected Ur Phencyclidine Scrn Not Detected Ur Amphetamines Screen Not Detected U Benzodiazepines Scrn Not Detected Urine Cocaine Screen Not Detected U Marijuana (THC) Screen POSITIVE H Ethyl Alcohol < 10 Influenza Type A (PCR) Influenza Type B (PCR) RSV RNA Qual (PCR) SARS-CoV-2 RNA (RT-PCR) 12/19/24 13:03 WBC RBC Hgb Hct MCV MCH MCHC RDW Plt Count MPV Immature Gran % (Auto) Neut % (Auto) Lymph % (Auto) Tyler % (Auto) Eos % (Auto) Baso % (Auto) Lymph # (Auto) Tyler # (Auto) Eos # (Auto) Baso # (Auto) Abs Immat Gran (auto) Absolute Neuts (auto) Absolute Nucleated RBC Nucleated RBC % (auto) Sodium Potassium Chloride Carbon Dioxide Anion Gap BUN Creatinine Estim Creat Clear Calc Estimated GFR Random Glucose Estimat Average Glucose Hemoglobin A1c % Calcium Magnesium Total Bilirubin AST ALT Alkaline Phosphatase Total Protein Albumin Triglycerides Cholesterol LDL Cholesterol, Calc HDL Cholesterol Lipase Urine Color Urine Appearance Urine pH Ur Specific [place] Urine Protein Urine Glucose (UA) Urine Ketones Urine Blood Urine Nitrite Ur Leukocyte Esterase Salicylates Urine Opiates Screen Ur Buprenorphine Scrn Ur Oxycodone Screen Urine Methadone Screen Urine Fentanyl Screen Acetaminophen Ur Barbiturates Screen Ur Phencyclidine Scrn Ur Amphetamines Screen U Benzodiazepines Scrn Urine Cocaine Screen U Marijuana (THC) Screen Ethyl Alcohol Influenza Type A (PCR) NEGATIVE Influenza Type B (PCR) NEGATIVE RSV RNA Qual (PCR) NEGATIVE SARS-CoV-2 RNA (RT-PCR) NEGATIVE Medications Medications Current Medications Acetaminophen (Acetaminophen 325 Mg Tablet) 975 mg PO BID PRN PRN Reason: mild to severe pain Last Admin: 12/19/24 18:00 Dose: 975 mg Al Hydroxide/Mg Hydroxide (Magnesium Hydrox/Alum Hydrox 30 Ml Oral.Susp) 30 ml PO Q6H PRN PRN Reason: Heartburn/Nausea Last Admin: 12/19/24 09:10 Dose: 30 ml Amlodipine Besylate (Amlodipine Besylate 10 Mg Tablet) 10 mg PO DAILY [facility]; Protocol Last Admin: 12/20/24 09:00 Dose: 10 mg Buspirone HCl (Buspirone Hcl 5 Mg Tablet) 5 mg PO BID [facility] Last Admin: 12/20/24 09:01 Dose: 5 mg Clonidine HCl (Clonidine Hcl 0.1 Mg Tablet) 0.1 mg PO Q4H PRN; Protocol PRN Reason: moderate anxiety Last Admin: 12/20/24 03:36 Dose: 0.1 mg Epinephrine (Epinephrine 1 Mg/Ml Vial) 0.3 mg IM Q5M PRN PRN Reason: anaphylaxis Fluoxetine HCl (Fluoxetine Hcl 20 Mg Capsule) 20 mg PO DAILY [facility] Last Admin: 12/20/24 09:00 Dose: 20 mg Losartan Potassium (Losartan Potassium 50 Mg Tablet) 100 mg PO DAILY [facility]; Protocol Last Admin: 12/20/24 09:01 Dose: 100 mg Magnesium Hydroxide (Milk Of Magnesia 30 Ml Oral.Susp) 30 ml PO DAILY PRN PRN Reason: Constipation Last Admin: 12/19/24 11:03 Dose: 30 ml Nicotine (Nicotine 21 Mg Patch.Td24) 21 mg TRANSDERMA DAILY PRN PRN Reason: smoking cessation Last Admin: 12/19/24 09:11 Dose: 21 mg Nicotine Polacrilex (Nicotine Polacrilex 2 Mg Gum) 4 mg BUCCAL Q2H PRN PRN Reason: Nicotine Cravings Ondansetron HCl (Ondansetron Odt 4 Mg Tab.Rapdis) 4 mg TRANSLINGU Q6H PRN PRN Reason: Nausea and Vomiting Trazodone HCl (Trazodone Hcl 50 Mg Tablet) 50 mg PO BEDTIME MRX1 PRN PRN Reason: Insomnia Last Admin: 12/19/24 22:17 Dose: 50 mg Allergies Allergies Allergy/AdvReac Type Severity Reaction Status Date / Time bee pollen [bee stings] Allergy Swelling Verified 12/18/24 09:59 Assessment & Plan Assessment & Plan (1) MDD (major depressive disorder), recurrent severe, without psychosis: Status: Acute Code(s): F33.2 - Major depressive disorder, recurrent severe without psychotic features (2) Anxiety disorder: Status: Acute Code(s): F41.9 - Anxiety disorder, unspecified (3) HTN (hypertension): Status: Acute Code(s): I10 - Essential (primary) hypertension Plan Patient is a 59-year-old male with history of MDD severe anxiety with agoraphobia, who presents for worsening depression in the face of being off Prozac for the past 2 weeks. Patient reports that for the past 4 months, since , he has been depressed and mostly staying by himself; he endorses diminished interest, low energy, poor concentration, low appetite, increase difficulty sleeping, though no SI; patient reports that this is chronic and happens every here starting at the holiday season and thus he is used to it and patient generally pushes himself through it, still going out of the house for errands and sometimes to meet with friends. About 2 weeks ago however, his PCP decided to stop prescribing his Prozac; patient's depression significantly worsened and now he was no longer getting out of bed, not attending to ADLs, not leaving the house at all and becoming increasingly overwhelmed with despondency and hopelessness, and thus self presented. Patient denies any SI. Patient endorses long history of anxiety back to teenage years; patient struggles going out in public or interacting with other people, worried that people are judging him or staring at him; patient knows this is not true but can not help feeling this way. 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 Denies AVH; denies history of manic type behaviors or episodes; some emotional trauma hx from adult, romantic relationships Formulation/clinical reasoning: Patient reports that the combination of Prozac 40 mg and BuSpar 7.5 mg b.i.d., has helped partially lower anxiety and depression however he remains with significant symptoms and continues to have 4 months of moderate to severe depression starting in August (patient does not think it is SAD). He has had other medication trials but does not remember. Patient keeps losing psychiatrists because he is too anxious to make the therapy appointments and is categorized as a no-show. -Will continue to rule out DEANGELO and possibly OCD; patient does have several ADHD inattentive type symptoms however this could be due to the distractions caused by continuous anxious worries. -Will restart patient on Prozac and increase to 60 mg; patient not sure if BuSpar ever made any difference. Will strongly consider adding another medication to help deal with symptoms has Prozac has only proved partially helpful Hospital course: 12/20 patient remains very anxious. Clonidine only helped somewhat; will schedule b.i.d. since it helped somewhat has seemed to reduce BP. Discussed risks/side effects of other options including Zyprexa which patient tried and found effective and wants scheduled. Also agreed to titrating Prozac to 60 mg. -does not seem to have intrusive thoughts; does have a deeply ingrained low self-esteem Plan: CV Q 15 minute checks Titrate Prozac to 60 mg Schedule Zyprexa 2.5 mg t.i.d. Zyprexa 5 mg p.r.n. for moderate to severe anxiety DC BuSpar; did not seem to help much Schedule clonidine 0.1 mg b.i.d. Clonidine p.r.n. for anxiety Patient hypertensive; on max dose of amlodipine and losartan; will increase BP readings to t.i.d. and assess if needs additional antihypertensive (pt reports chronically elevated) Patient educated on: diagnosis, medication risk/benefits, therapeutic strategies and medical condition Informed Consent: understands Reason for continued inpatient stay Substantial Risk for: inability to function and rapid decompensation Time Spent With Patient Time: Total time managing care of this patient today ____ minutes.
[2024-12-20] MEDS: Nicotine 21 MG PATCH.TD24 TRANSDERMA (09:57)
[2024-12-20] MEDS: Acetaminophen 325 MG TABLET 975 MG PO (10:23)
[2024-12-20] MEDS: OLANZapine 2.5 MG TABLET PO ×2 (15:14→22:12)
[2024-12-20] MEDS: traZODone HCL 50 MG TABLET PO ×2 (22:14→23:28)
[2024-12-21 08:18] VITALS: BP 171/78; PULSE 68; TEMP 36.4; O2SAT 100
[2024-12-21] MEDS: Nicotine 21 MG PATCH.TD24 TRANSDERMA (08:23)
[2024-12-21] MEDS: OLANZapine 2.5 MG TABLET PO ×3 (08:25→22:35)
[2024-12-21] MEDS: cloNIDine HCL 0.1 MG TABLET PO ×3 (08:25→20:52)
[2024-12-21] MEDS: amLODIPine Besylate 10 MG TABLET PO (08:25)
[2024-12-21] MEDS: Losartan Potassium 50 MG TABLET 100 MG PO (08:25)
[2024-12-21] MEDS: FLUoxetine HCl 20 MG CAPSULE 40 MG PO (08:25)
[2024-12-21] MEDS: Acetaminophen 325 MG TABLET 975 MG PO (08:42)
--- NOTE | 2024-12-21 10:25 | P.PNPSI_ITS ---
Subjective Subjective Date of Service: 12/21/24 Reason For Visit: Depression Subjective Notes: Conditional Voluntary Interim History: Patient was seen and discussed in rounds today. Records and plans were reviewed. Continues to endorse depression and anxiety. Isolative and guarded. He is pleasant with no behavioral issues. Affect is constricted. No SI. Eating and sleeping adequately. No changes were made today Review of Systems Review of Systems Yes all other systems are reviewed and are negative Mental Status Exam Mental Status Exam Narrative: in today's visit he is alert, oriented and pleasant. Normal speech. Moderate eye contact. Affect is constricted. No signs of psychosis. Cognitively is grossly intact. No SI /AVH. Moves all limbs. No gait abnormalities. Judgment is intact. Diagnostics Vital Signs (24Hr): Vital Signs - 24 hr 12/20/24 13:14 12/20/24 14:23 12/20/24 18:00 Temperature 98.4 F 97.7 F Pulse Rate 76 88 Respiratory Rate 16 16 Blood Pressure 129/75 146/86 H 132/82 Pulse Oximetry 95 99 Oxygen Delivery Method Room Air Room Air 12/21/24 08:18 Temperature 97.6 F Pulse Rate 68 Respiratory Rate Blood Pressure 171/78 H Pulse Oximetry 100 Oxygen Delivery Method Room Air BMI result Body Mass Index 25.7 Labs 12/18/24 10:44 12/18/24 10:44 Labs: Laboratory Results - last 48 hr 12/19/24 13:03 Influenza Type A (PCR) NEGATIVE Influenza Type B (PCR) NEGATIVE RSV RNA Qual (PCR) NEGATIVE SARS-CoV-2 RNA (RT-PCR) NEGATIVE Medications Medications Current Medications Acetaminophen (Acetaminophen 325 Mg Tablet) 975 mg PO BID PRN PRN Reason: mild to severe pain Last Admin: 12/21/24 08:42 Dose: 975 mg Al Hydroxide/Mg Hydroxide (Magnesium Hydrox/Alum Hydrox 30 Ml Oral.Susp) 30 ml PO Q6H PRN PRN Reason: Heartburn/Nausea Last Admin: 12/19/24 09:10 Dose: 30 ml Amlodipine Besylate (Amlodipine Besylate 10 Mg Tablet) 10 mg PO DAILY [facility]; Protocol Last Admin: 12/21/24 08:25 Dose: 10 mg Clonidine HCl (Clonidine Hcl 0.1 Mg Tablet) 0.1 mg PO Q4H PRN; Protocol PRN Reason: moderate anxiety Last Admin: 12/20/24 13:14 Dose: 0.1 mg Clonidine HCl (Clonidine Hcl 0.1 Mg Tablet) 0.1 mg PO BID [facility]; Protocol Last Admin: 12/21/24 08:25 Dose: 0.1 mg Epinephrine (Epinephrine 1 Mg/Ml Vial) 0.3 mg IM Q5M PRN PRN Reason: anaphylaxis Fluoxetine HCl (Fluoxetine Hcl 20 Mg Capsule) 60 mg PO DAILY [facility] Fluoxetine HCl (Fluoxetine Hcl 20 Mg Capsule) 40 mg PO DAILY [facility] Stop: 12/21/24 23:00 Last Admin: 12/21/24 08:25 Dose: 40 mg Losartan Potassium (Losartan Potassium 50 Mg Tablet) 100 mg PO DAILY [facility]; Protocol Last Admin: 12/21/24 08:25 Dose: 100 mg Magnesium Hydroxide (Milk Of Magnesia 30 Ml Oral.Susp) 30 ml PO DAILY PRN PRN Reason: Constipation Last Admin: 12/19/24 11:03 Dose: 30 ml Nicotine (Nicotine 21 Mg Patch.Td24) 21 mg TRANSDERMA DAILY PRN PRN Reason: smoking cessation Last Admin: 12/21/24 08:23 Dose: 21 mg Nicotine Polacrilex (Nicotine Polacrilex 2 Mg Gum) 4 mg BUCCAL Q2H PRN PRN Reason: Nicotine Cravings Olanzapine (Olanzapine 5 Mg Tablet) 5 mg PO TID PRN PRN Reason: moderate/severe anxiety Olanzapine (Olanzapine 2.5 Mg Tablet) 2.5 mg PO TID [facility] Last Admin: 12/21/24 08:25 Dose: 2.5 mg Ondansetron HCl (Ondansetron Odt 4 Mg Tab.Rapdis) 4 mg TRANSLINGU Q6H PRN PRN Reason: Nausea and Vomiting Trazodone HCl (Trazodone Hcl 50 Mg Tablet) 50 mg PO BEDTIME MRX1 PRN PRN Reason: Insomnia Last Admin: 12/20/24 23:28 Dose: 50 mg Allergies Allergies Allergy/AdvReac Type Severity Reaction Status Date / Time bee pollen [bee stings] Allergy Swelling Verified 12/18/24 09:59 Assessment & Plan Assessment & Plan (1) MDD (major depressive disorder), recurrent severe, without psychosis: Status: Acute Code(s): F33.2 - Major depressive disorder, recurrent severe without psychotic features (2) Anxiety disorder: Status: Acute Code(s): F41.9 - Anxiety disorder, unspecified (3) HTN (hypertension): Status: Acute Code(s): I10 - Essential (primary) hypertension Plan Patient is a 59-year-old male with history of MDD severe anxiety with agoraphobia, who presents for worsening depression in the face of being off Prozac for the past 2 weeks. Patient reports that for the past 4 months, since , he has been depressed and mostly staying by himself; he endorses diminished interest, low energy, poor concentration, low appetite, increase difficulty sleeping, though no SI; patient reports that this is chronic and happens every here starting at the holiday season and thus he is used to it and patient generally pushes himself through it, still going out of the house for errands and sometimes to meet with friends. About 2 weeks ago however, his PCP decided to stop prescribing his Prozac; patient's depression significantly worsened and now he was no longer getting out of bed, not attending to ADLs, not leaving the house at all and becoming increasingly overwhelmed with despondency and hopelessness, and thus self presented. Patient denies any SI. Patient endorses long history of anxiety back to teenage years; patient struggles going out in public or interacting with other people, worried that people are judging him or staring at him; patient knows this is not true but can not help feeling this way. 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 Denies AVH; denies history of manic type behaviors or episodes; some emotional trauma hx from adult, romantic relationships Formulation/clinical reasoning: Patient reports that the combination of Prozac 40 mg and BuSpar 7.5 mg b.i.d., has helped partially lower anxiety and depression however he remains with significant symptoms and continues to have 4 months of moderate to severe depression starting in August (patient does not think it is SAD). He has had other medication trials but does not remember. Patient keeps losing psychiatrists because he is too anxious to make the therapy appointments and is categorized as a no-show. -Will continue to rule out DEANGELO and possibly OCD; patient does have several ADHD inattentive type symptoms however this could be due to the distractions caused by continuous anxious worries. -Will restart patient on Prozac and increase to 60 mg; patient not sure if BuSpar ever made any difference. Will strongly consider adding another medication to help deal with symptoms has Prozac has only proved partially helpful Hospital course: 12/20 patient remains very anxious. Clonidine only helped somewhat; will schedule b.i.d. since it helped somewhat has seemed to reduce BP. Discussed risks/side effects of other options including Zyprexa which patient tried and found effective and wants scheduled. Also agreed to titrating Prozac to 60 mg. -does not seem to have intrusive thoughts; does have a deeply ingrained low self-esteem Plan: CV Q 15 minute checks Titrate Prozac to 60 mg Schedule Zyprexa 2.5 mg t.i.d. Zyprexa 5 mg p.r.n. for moderate to severe anxiety DC BuSpar; did not seem to help much Schedule clonidine 0.1 mg b.i.d. Clonidine p.r.n. for anxiety Patient hypertensive; on max dose of amlodipine and losartan; will increase BP readings to t.i.d. and assess if needs additional antihypertensive (pt reports chronically elevated) 12/21/24: Continue current plans and regimen Reason for continued inpatient stay Substantial Risk for: med/psych decompensation Time Spent With Patient Time: Total time managing care of this patient today ____ minutes.
[2024-12-21 13:53] VITALS: BP 120/67; PULSE 72
[2024-12-21 18:00] VITALS: BP 117/68
[2024-12-21 19:47] VITALS: BP 117/68; PULSE 76; RESP 16; TEMP 36.8; O2SAT 98
[2024-12-21] MEDS: traZODone HCL 50 MG TABLET PO ×2 (22:39→23:52)
[2024-12-22 07:58] VITALS: BP 124/79; PULSE 60; TEMP 36.6; O2SAT 99
[2024-12-22] MEDS: amLODIPine Besylate 10 MG TABLET PO (08:11)
[2024-12-22] MEDS: FLUoxetine HCl 20 MG CAPSULE 60 MG PO (08:11)
[2024-12-22] MEDS: cloNIDine HCL 0.1 MG TABLET PO ×4 (08:11→20:27)
[2024-12-22] MEDS: OLANZapine 2.5 MG TABLET PO ×3 (08:11→20:26)
[2024-12-22] MEDS: Losartan Potassium 50 MG TABLET 100 MG PO (08:12)
[2024-12-22] MEDS: Acetaminophen 325 MG TABLET 975 MG PO ×2 (08:22→20:27)
--- NOTE | 2024-12-22 09:16 | P.PNPSI_ITS ---
Subjective Subjective Date of Service: 12/22/24 Reason For Visit: Depression Subjective Notes: Conditional Voluntary Interim History: Patient was seen and discussed in rounds today. Records and plans were reviewed. He has been stable, withdrawn with constricted affect. Anxiety is less. Using the clonidine for that purpose with good effect. No major withdrawal symptoms. No AVH/SI. Eating and sleeping adequately. No changes were made today Review of Systems Review of Systems Yes all other systems are reviewed and are negative Mental Status Exam Mental Status Exam Narrative: in today's visit he is alert, oriented and pleasant. Normal speech. Moderate eye contact. Affect is constricted. No signs of psychosis. Cognitively is grossly intact. No SI /AVH. Moves all limbs. No gait abnormalities. Judgment is intact. Diagnostics Vital Signs (24Hr): Vital Signs - 24 hr 12/21/24 08:18 12/21/24 13:53 12/21/24 18:00 Temperature 97.6 F Pulse Rate 68 72 Respiratory Rate Blood Pressure 171/78 H 120/67 117/68 Pulse Oximetry 100 Oxygen Delivery Method Room Air 12/21/24 19:47 12/22/24 07:58 Temperature 98.3 F 97.9 F Pulse Rate 76 60 Respiratory Rate 16 Blood Pressure 117/68 124/79 Pulse Oximetry 98 99 Oxygen Delivery Method Room Air Room Air BMI result Body Mass Index 25.7 Labs 12/18/24 10:44 12/18/24 10:44 Medications Medications Current Medications Acetaminophen (Acetaminophen 325 Mg Tablet) 975 mg PO BID PRN PRN Reason: mild to severe pain Last Admin: 12/22/24 08:22 Dose: 975 mg Al Hydroxide/Mg Hydroxide (Magnesium Hydrox/Alum Hydrox 30 Ml Oral.Susp) 30 ml PO Q6H PRN PRN Reason: Heartburn/Nausea Last Admin: 12/19/24 09:10 Dose: 30 ml Amlodipine Besylate (Amlodipine Besylate 10 Mg Tablet) 10 mg PO DAILY [facility]; Protocol Last Admin: 12/22/24 08:11 Dose: 10 mg Clonidine HCl (Clonidine Hcl 0.1 Mg Tablet) 0.1 mg PO Q4H PRN; Protocol PRN Reason: moderate anxiety Last Admin: 12/21/24 13:54 Dose: 0.1 mg Clonidine HCl (Clonidine Hcl 0.1 Mg Tablet) 0.1 mg PO BID [facility]; Protocol Last Admin: 12/22/24 08:11 Dose: 0.1 mg Epinephrine (Epinephrine 1 Mg/Ml Vial) 0.3 mg IM Q5M PRN PRN Reason: anaphylaxis Fluoxetine HCl (Fluoxetine Hcl 20 Mg Capsule) 60 mg PO DAILY [facility] Last Admin: 12/22/24 08:11 Dose: 60 mg Losartan Potassium (Losartan Potassium 50 Mg Tablet) 100 mg PO DAILY [facility]; Protocol Last Admin: 12/22/24 08:12 Dose: 100 mg Magnesium Hydroxide (Milk Of Magnesia 30 Ml Oral.Susp) 30 ml PO DAILY PRN PRN Reason: Constipation Last Admin: 12/19/24 11:03 Dose: 30 ml Nicotine (Nicotine 21 Mg Patch.Td24) 21 mg TRANSDERMA DAILY PRN PRN Reason: smoking cessation Last Admin: 12/21/24 08:23 Dose: 21 mg Nicotine Polacrilex (Nicotine Polacrilex 2 Mg Gum) 4 mg BUCCAL Q2H PRN PRN Reason: Nicotine Cravings Olanzapine (Olanzapine 5 Mg Tablet) 5 mg PO TID PRN PRN Reason: moderate/severe anxiety Olanzapine (Olanzapine 2.5 Mg Tablet) 2.5 mg PO TID [facility] Last Admin: 12/22/24 08:11 Dose: 2.5 mg Ondansetron HCl (Ondansetron Odt 4 Mg Tab.Rapdis) 4 mg TRANSLINGU Q6H PRN PRN Reason: Nausea and Vomiting Trazodone HCl (Trazodone Hcl 50 Mg Tablet) 50 mg PO BEDTIME MRX1 PRN PRN Reason: Insomnia Last Admin: 12/21/24 23:52 Dose: 50 mg Allergies Allergies Allergy/AdvReac Type Severity Reaction Status Date / Time bee pollen [bee stings] Allergy Swelling Verified 12/18/24 09:59 Assessment & Plan Assessment & Plan (1) MDD (major depressive disorder), recurrent severe, without psychosis: Status: Acute Code(s): F33.2 - Major depressive disorder, recurrent severe without psychotic features (2) Anxiety disorder: Status: Acute Code(s): F41.9 - Anxiety disorder, unspecified (3) HTN (hypertension): Status: Acute Code(s): I10 - Essential (primary) hypertension Plan Patient is a 59-year-old male with history of MDD severe anxiety with agoraphobia, who presents for worsening depression in the face of being off Prozac for the past 2 weeks. Patient reports that for the past 4 months, since , he has been depressed and mostly staying by himself; he endorses diminished interest, low energy, poor concentration, low appetite, increase difficulty sleeping, though no SI; patient reports that this is chronic and happens every here starting at the holiday season and thus he is used to it and patient generally pushes himself through it, still going out of the house for errands and sometimes to meet with friends. About 2 weeks ago however, his PCP decided to stop prescribing his Prozac; patient's depression significantly worsened and now he was no longer getting out of bed, not attending to ADLs, not leaving the house at all and becoming increasingly overwhelmed with despondency and hopelessness, and thus self presented. Patient denies any SI. Patient endorses long history of anxiety back to teenage years; patient struggles going out in public or interacting with other people, worried that people are judging him or staring at him; patient knows this is not true but can not help feeling this way. 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 Denies AVH; denies history of manic type behaviors or episodes; some emotional trauma hx from adult, romantic relationships Formulation/clinical reasoning: Patient reports that the combination of Prozac 40 mg and BuSpar 7.5 mg b.i.d., has helped partially lower anxiety and depression however he remains with significant symptoms and continues to have 4 months of moderate to severe depression starting in August (patient does not think it is SAD). He has had other medication trials but does not remember. Patient keeps losing psychiatrists because he is too anxious to make the therapy appointments and is categorized as a no-show. -Will continue to rule out DEANGELO and possibly OCD; patient does have several ADHD inattentive type symptoms however this could be due to the distractions caused by continuous anxious worries. -Will restart patient on Prozac and increase to 60 mg; patient not sure if BuSpar ever made any difference. Will strongly consider adding another medication to help deal with symptoms has Prozac has only proved partially helpful Hospital course: 12/20 patient remains very anxious. Clonidine only helped somewhat; will schedule b.i.d. since it helped somewhat has seemed to reduce BP. Discussed risks/side effects of other options including Zyprexa which patient tried and found effective and wants scheduled. Also agreed to titrating Prozac to 60 mg. -does not seem to have intrusive thoughts; does have a deeply ingrained low self-esteem 12/22: Continue current regimen and plans Plan: CV Q 15 minute checks Titrate Prozac to 60 mg Schedule Zyprexa 2.5 mg t.i.d. Zyprexa 5 mg p.r.n. for moderate to severe anxiety DC BuSpar; did not seem to help much Schedule clonidine 0.1 mg b.i.d. Clonidine p.r.n. for anxiety Patient hypertensive; on max dose of amlodipine and losartan; will increase BP readings to t.i.d. and assess if needs additional antihypertensive (pt reports chronically elevated) 12/21/24: Continue current plans and regimen Reason for continued inpatient stay Substantial Risk for: med/psych decompensation Time Spent With Patient Time: Total time managing care of this patient today ____ minutes.
[2024-12-22] MEDS: Nicotine 21 MG PATCH.TD24 TRANSDERMA (09:31)
[2024-12-22 12:50] VITALS: BP 131/77; PULSE 72
[2024-12-22 16:06] VITALS: BP 129/72
[2024-12-22 18:00] VITALS: BP 130/73; PULSE 78; RESP 16; TEMP 36.5; O2SAT 98
[2024-12-22 19:58] VITALS: BP 147/74; PULSE 80; RESP 15; TEMP 36.4; O2SAT 98
[2024-12-22] MEDS: traZODone HCL 50 MG TABLET PO ×2 (20:26→21:52)
[2024-12-23 00:03] VITALS: BP 134/73
[2024-12-23] MEDS: cloNIDine HCL 0.1 MG TABLET PO ×5 (00:03→20:22)
[2024-12-23] MEDS: OLANZapine 5 MG TABLET PO (00:03)
[2024-12-23 08:09] VITALS: BP 120/69; PULSE 80; TEMP 37.1; O2SAT 98
[2024-12-23] MEDS: Acetaminophen 325 MG TABLET 975 MG PO ×2 (08:18→17:22)
[2024-12-23] MEDS: Losartan Potassium 50 MG TABLET 100 MG PO (08:19)
[2024-12-23] MEDS: amLODIPine Besylate 10 MG TABLET PO (08:19)
[2024-12-23] MEDS: OLANZapine 2.5 MG TABLET PO ×3 (08:19→20:21)
[2024-12-23] MEDS: FLUoxetine HCl 20 MG CAPSULE 60 MG PO (08:19)
[2024-12-23] MEDS: Nicotine 21 MG PATCH.TD24 TRANSDERMA (09:40)
--- NOTE | 2024-12-23 09:52 | P.PNPSI_ITS ---
Subjective Subjective Date of Service: 12/23/24 Reason For Visit: Depression Interim History: met with patient; discussed with team; reviewed chart feeling much better; mood is better and anxiety down. Able to talk in groups, even quieting down his own anxiety. Still much trouble sleeping and agrees to increase trazodone Mental Status Exam Mental Status Exam Narrative: Pt is alert and oriented; behavior is friendly, calm, cooperative, more social; patient is not in distress; dressed in hospital attire, bald, adequate hygiene; mood is described as much better and affect congruent, brighter, more calm; eye contact appropriate; Speech is with hint of a stutter; otherwise normal rate, volume and prosody and not pressured; no psychomotor retardation present; thought process is organized and goal directed; Thought content is on treatment; otherwise pertinent to relevant topics and without any other delusional content; denies any SI/HI/AVH; There is no evidence of perceptual disturbance. Patients insight and judgment fair. Diagnostics Vital Signs (24Hr): Vital Signs - 24 hr 12/22/24 12:50 12/22/24 16:06 12/22/24 18:00 Temperature 97.7 F Pulse Rate 72 78 Respiratory Rate 16 Blood Pressure 131/77 129/72 130/73 Pulse Oximetry 98 Oxygen Delivery Method Room Air 12/22/24 19:58 12/23/24 00:03 12/23/24 08:09 Temperature 97.5 F 98.8 F Pulse Rate 80 80 Respiratory Rate 15 Blood Pressure 147/74 H 134/73 120/69 Pulse Oximetry 98 98 Oxygen Delivery Method Room Air BMI result Body Mass Index 25.7 Labs 12/18/24 10:44 12/18/24 10:44 Medications Medications Current Medications Acetaminophen (Acetaminophen 325 Mg Tablet) 975 mg PO BID PRN PRN Reason: mild to severe pain Last Admin: 12/23/24 08:18 Dose: 975 mg Al Hydroxide/Mg Hydroxide (Magnesium Hydrox/Alum Hydrox 30 Ml Oral.Susp) 30 ml PO Q6H PRN PRN Reason: Heartburn/Nausea Last Admin: 12/19/24 09:10 Dose: 30 ml Amlodipine Besylate (Amlodipine Besylate 10 Mg Tablet) 10 mg PO DAILY [facility]; Protocol Last Admin: 12/23/24 08:19 Dose: 10 mg Clonidine HCl (Clonidine Hcl 0.1 Mg Tablet) 0.1 mg PO Q4H PRN; Protocol PRN Reason: moderate anxiety Last Admin: 12/23/24 00:03 Dose: 0.1 mg Clonidine HCl (Clonidine Hcl 0.1 Mg Tablet) 0.1 mg PO BID [facility]; Protocol Last Admin: 12/23/24 08:19 Dose: 0.1 mg Epinephrine (Epinephrine 1 Mg/Ml Vial) 0.3 mg IM Q5M PRN PRN Reason: anaphylaxis Fluoxetine HCl (Fluoxetine Hcl 20 Mg Capsule) 60 mg PO DAILY [facility] Last Admin: 12/23/24 08:19 Dose: 60 mg Losartan Potassium (Losartan Potassium 50 Mg Tablet) 100 mg PO DAILY [facility]; Protocol Last Admin: 12/23/24 08:19 Dose: 100 mg Magnesium Hydroxide (Milk Of Magnesia 30 Ml Oral.Susp) 30 ml PO DAILY PRN PRN Reason: Constipation Last Admin: 12/19/24 11:03 Dose: 30 ml Nicotine (Nicotine 21 Mg Patch.Td24) 21 mg TRANSDERMA DAILY PRN PRN Reason: smoking cessation Last Admin: 12/23/24 09:40 Dose: 21 mg Nicotine Polacrilex (Nicotine Polacrilex 2 Mg Gum) 4 mg BUCCAL Q2H PRN PRN Reason: Nicotine Cravings Olanzapine (Olanzapine 5 Mg Tablet) 5 mg PO TID PRN PRN Reason: moderate/severe anxiety Last Admin: 12/23/24 00:03 Dose: 5 mg Olanzapine (Olanzapine 2.5 Mg Tablet) 2.5 mg PO TID [facility] Last Admin: 12/23/24 08:19 Dose: 2.5 mg Ondansetron HCl (Ondansetron Odt 4 Mg Tab.Rapdis) 4 mg TRANSLINGU Q6H PRN PRN Reason: Nausea and Vomiting Trazodone HCl (Trazodone Hcl 50 Mg Tablet) 50 mg PO BEDTIME MRX1 PRN PRN Reason: Insomnia Last Admin: 12/22/24 21:52 Dose: 50 mg Allergies Allergies Allergy/AdvReac Type Severity Reaction Status Date / Time bee pollen [bee stings] Allergy Swelling Verified 12/18/24 09:59 Assessment & Plan Assessment & Plan (1) MDD (major depressive disorder), recurrent severe, without psychosis: Status: Acute Code(s): F33.2 - Major depressive disorder, recurrent severe without psychotic features (2) Anxiety disorder: Status: Acute Code(s): F41.9 - Anxiety disorder, unspecified (3) HTN (hypertension): Status: Acute Code(s): I10 - Essential (primary) hypertension Plan Patient is a 59-year-old male with history of MDD severe anxiety with agoraphobia, who presents for worsening depression in the face of being off Prozac for the past 2 weeks. Patient reports that for the past 4 months, since , he has been depressed and mostly staying by himself; he endorses diminished interest, low energy, poor concentration, low appetite, increase difficulty sleeping, though no SI; patient reports that this is chronic and happens every here starting at the holiday season and thus he is used to it and patient generally pushes himself through it, still going out of the house for errands and sometimes to meet with friends. About 2 weeks ago however, his PCP decided to stop prescribing his Prozac; patient's depression significantly worsened and now he was no longer getting out of bed, not attending to ADLs, not leaving the house at all and becoming increasingly overwhelmed with despondency and hopelessness, and thus self presented. Patient denies any SI. Patient endorses long history of anxiety back to teenage years; patient struggles going out in public or interacting with other people, worried that people are judging him or staring at him; patient knows this is not true but can not help feeling this way. 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 Denies AVH; denies history of manic type behaviors or episodes; some emotional trauma hx from adult, romantic relationships Formulation/clinical reasoning: Patient reports that the combination of Prozac 40 mg and BuSpar 7.5 mg b.i.d., has helped partially lower anxiety and depression however he remains with significant symptoms and continues to have 4 months of moderate to severe depression starting in August (patient does not think it is SAD). He has had other medication trials but does not remember. Patient keeps losing psychiatrists because he is too anxious to make the therapy appointments and is categorized as a no-show. -Will continue to rule out DEANGELO and possibly OCD; patient does have several ADHD inattentive type symptoms however this could be due to the distractions caused by continuous anxious worries. -Will restart patient on Prozac and increase to 60 mg; patient not sure if BuSpar ever made any difference. Will strongly consider adding another medication to help deal with symptoms has Prozac has only proved partially helpful Hospital course: 12/20 patient remains very anxious. Clonidine only helped somewhat; will schedule b.i.d. since it helped somewhat has seemed to reduce BP. Discussed risks/side effects of other options including Zyprexa which patient tried and found effective and wants scheduled. Also agreed to titrating Prozac to 60 mg. -does not seem to have intrusive thoughts; does have a deeply ingrained low self-esteem 12/22: Continue current regimen and plans 12/23 feeling much better; mood is better and anxiety down. Able to talk in groups, even quieting down his own anxiety. Still much trouble sleeping and agrees to increase trazodone (reviewed risks/side-effects) -BP also much better and WNL Plan: CV Q 15 minute checks Titrate Prozac to 60 mg Schedule Zyprexa 2.5 mg t.i.d. Zyprexa 5 mg p.r.n. for moderate to severe anxiety DC BuSpar; did not seem to help much Schedule clonidine 0.1 mg b.i.d. Clonidine p.r.n. for anxiety Patient hypertensive; on max dose of amlodipine and losartan; will increase BP readings to t.i.d. and assess if needs additional antihypertensive (pt reports chronically elevated) 12/21/24: Continue current plans and regimen Patient educated on: diagnosis, medication risk/benefits and therapeutic strategies Informed Consent: understands Reason for continued inpatient stay Substantial Risk for: stable for discharge Time Spent With Patient Time: Total time managing care of this patient today ____ minutes.
[2024-12-23 13:17] VITALS: BP 117/86
[2024-12-23 18:05] VITALS: BP 133/75
[2024-12-23 20:00] VITALS: BP 116/66; PULSE 79; TEMP 36.9; O2SAT 99
[2024-12-23] MEDS: traZODone HCL 100 MG TABLET PO (20:21)
[2024-12-23 20:22] VITALS: BP 131/62
[2024-12-23] MEDS: traZODone HCL 50 MG TABLET PO (23:04)
[2024-12-24] MEDS: traZODone HCL 50 MG TABLET PO ×2 (01:15→23:58)
[2024-12-24 08:00] VITALS: BP 119/75; PULSE 68; TEMP 36.9; O2SAT 98
[2024-12-24] MEDS: OLANZapine 2.5 MG TABLET PO ×3 (08:36→22:25)
[2024-12-24] MEDS: cloNIDine HCL 0.1 MG TABLET PO ×4 (08:36→22:24)
[2024-12-24] MEDS: Losartan Potassium 50 MG TABLET 100 MG PO (08:36)
[2024-12-24] MEDS: amLODIPine Besylate 10 MG TABLET PO (08:36)
[2024-12-24] MEDS: FLUoxetine HCl 20 MG CAPSULE 60 MG PO (08:37)
--- NOTE | 2024-12-24 09:57 | P.PNPSI_ITS ---
Subjective Subjective Date of Service: 12/24/24 Reason For Visit: Depression Interim History: met with patient; discussed with team pt reports he remains doing well, anxiety remains under good control; he says he's handling groups well and feels ready for discharge. Discussed medications, risks and side-effects. Depression fully resolved. Mental Status Exam Mental Status Exam Narrative: Pt is alert and oriented; behavior is friendly, calm, cooperative, more social; patient is not in distress; dressed in hospital attire, bald, adequate hygiene; mood is described as good and affect congruent, brighter, more calm; eye contact appropriate; Speech is with hint of a stutter; otherwise normal rate, volume and prosody and not pressured; no psychomotor retardation present; thought process is organized and goal directed; Thought content is on treatment; otherwise pertinent to relevant topics and without any other delusional content; denies any SI/HI/AVH; There is no evidence of perceptual disturbance. Patients insight and judgment fair. Diagnostics Vital Signs (24Hr): Vital Signs - 24 hr 12/23/24 13:17 12/23/24 18:05 12/23/24 20:00 Temperature 98.4 F Pulse Rate 79 Blood Pressure 117/86 133/75 116/66 Pulse Oximetry 99 Oxygen Delivery Method Room Air 12/23/24 20:22 12/24/24 08:00 Temperature 98.4 F Pulse Rate 68 Blood Pressure 131/62 119/75 Pulse Oximetry 98 Oxygen Delivery Method Room Air BMI result Body Mass Index 25.7 Labs 12/18/24 10:44 12/24/24 12:38 Medications Medications Current Medications Acetaminophen (Acetaminophen 325 Mg Tablet) 975 mg PO BID PRN PRN Reason: mild to severe pain Last Admin: 12/23/24 17:22 Dose: 975 mg Al Hydroxide/Mg Hydroxide (Magnesium Hydrox/Alum Hydrox 30 Ml Oral.Susp) 30 ml PO Q6H PRN PRN Reason: Heartburn/Nausea Last Admin: 12/19/24 09:10 Dose: 30 ml Amlodipine Besylate (Amlodipine Besylate 10 Mg Tablet) 10 mg PO DAILY [facility]; Protocol Last Admin: 12/24/24 08:36 Dose: 10 mg Clonidine HCl (Clonidine Hcl 0.1 Mg Tablet) 0.1 mg PO Q4H PRN; Protocol PRN Reason: moderate anxiety Last Admin: 12/23/24 18:05 Dose: 0.1 mg Clonidine HCl (Clonidine Hcl 0.1 Mg Tablet) 0.1 mg PO BID [facility]; Protocol Last Admin: 12/24/24 08:36 Dose: 0.1 mg Epinephrine (Epinephrine 1 Mg/Ml Vial) 0.3 mg IM Q5M PRN PRN Reason: anaphylaxis Fluoxetine HCl (Fluoxetine Hcl 20 Mg Capsule) 60 mg PO DAILY [facility] Last Admin: 12/24/24 08:37 Dose: 60 mg Losartan Potassium (Losartan Potassium 50 Mg Tablet) 100 mg PO DAILY [facility]; Protocol Last Admin: 12/24/24 08:36 Dose: 100 mg Magnesium Hydroxide (Milk Of Magnesia 30 Ml Oral.Susp) 30 ml PO DAILY PRN PRN Reason: Constipation Last Admin: 12/19/24 11:03 Dose: 30 ml Nicotine (Nicotine 21 Mg Patch.Td24) 21 mg TRANSDERMA DAILY PRN PRN Reason: smoking cessation Last Admin: 12/23/24 09:40 Dose: 21 mg Nicotine Polacrilex (Nicotine Polacrilex 2 Mg Gum) 4 mg BUCCAL Q2H PRN PRN Reason: Nicotine Cravings Olanzapine (Olanzapine 5 Mg Tablet) 5 mg PO TID PRN PRN Reason: moderate/severe anxiety Last Admin: 12/23/24 00:03 Dose: 5 mg Olanzapine (Olanzapine 2.5 Mg Tablet) 2.5 mg PO TID [facility] Last Admin: 12/24/24 08:36 Dose: 2.5 mg Ondansetron HCl (Ondansetron Odt 4 Mg Tab.Rapdis) 4 mg TRANSLINGU Q6H PRN PRN Reason: Nausea and Vomiting Trazodone HCl (Trazodone Hcl 100 Mg Tablet) 100 mg PO BEDTIME [facility] Last Admin: 12/23/24 20:21 Dose: 100 mg Trazodone HCl (Trazodone Hcl 50 Mg Tablet) 50 mg PO BEDTIME MRX1 PRN PRN Reason: continued Insomnia Last Admin: 12/24/24 01:15 Dose: 50 mg Allergies Allergies Allergy/AdvReac Type Severity Reaction Status Date / Time bee pollen [bee stings] Allergy Swelling Verified 12/18/24 09:59 Assessment & Plan Assessment & Plan (1) MDD (major depressive disorder), recurrent severe, without psychosis: Status: Acute Code(s): F33.2 - Major depressive disorder, recurrent severe without psychotic features (2) Anxiety disorder: Status: Acute Code(s): F41.9 - Anxiety disorder, unspecified (3) HTN (hypertension): Status: Acute Code(s): I10 - Essential (primary) hypertension Plan Patient is a 59-year-old male with history of MDD severe anxiety with agoraphobia, who presents for worsening depression in the face of being off Prozac for the past 2 weeks. Patient reports that for the past 4 months, since , he has been depressed and mostly staying by himself; he endorses diminished interest, low energy, poor concentration, low appetite, increase difficulty sleeping, though no SI; patient reports that this is chronic and happens every here starting at the holiday season and thus he is used to it and patient generally pushes himself through it, still going out of the house for errands and sometimes to meet with friends. About 2 weeks ago however, his PCP decided to stop prescribing his Prozac; patient's depression significantly worsened and now he was no longer getting out of bed, not attending to ADLs, not leaving the house at all and becoming increasingly overwhelmed with despondency and hopelessness, and thus self presented. Patient denies any SI. Patient endorses long history of anxiety back to teenage years; patient struggles going out in public or interacting with other people, worried that people are judging him or staring at him; patient knows this is not true but can not help feeling this way. 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 Denies AVH; denies history of manic type behaviors or episodes; some emotional trauma hx from adult, romantic relationships Formulation/clinical reasoning: Patient reports that the combination of Prozac 40 mg and BuSpar 7.5 mg b.i.d., has helped partially lower anxiety and depression however he remains with significant symptoms and continues to have 4 months of moderate to severe depression starting in August (patient does not think it is SAD). He has had other medication trials but does not remember. Patient keeps losing psychiatrists because he is too anxious to make the therapy appointments and is categorized as a no-show. -Will continue to rule out DEANGELO and possibly OCD; patient does have several ADHD inattentive type symptoms however this could be due to the distractions caused by continuous anxious worries. -Will restart patient on Prozac and increase to 60 mg; patient not sure if BuSpar ever made any difference. Will strongly consider adding another medication to help deal with symptoms has Prozac has only proved partially helpful Hospital course: 12/20 patient remains very anxious. Clonidine only helped somewhat; will schedule b.i.d. since it helped somewhat has seemed to reduce BP. Discussed risks/side effects of other options including Zyprexa which patient tried and found effective and wants scheduled. Also agreed to titrating Prozac to 60 mg. -does not seem to have intrusive thoughts; does have a deeply ingrained low self-esteem 12/22: Continue current regimen and plans 12/23 feeling much better; mood is better and anxiety down. Able to talk in groups, even quieting down his own anxiety. Still much trouble sleeping and agrees to increase trazodone (reviewed risks/side-effects) -BP also much better and WNL 12/24 pt reports he remains doing well, anxiety remains under good control; he says he's handling groups well and feels ready for discharge. Discussed medications, risks and side-effects. Depression fully resolved. -pt doing well and appropriate to return to the community for treatment; BP wnl Plan: CV Q 15 minute checks Titrate Prozac to 60 mg Schedule Zyprexa 2.5 mg t.i.d. Zyprexa 5 mg p.r.n. for moderate to severe anxiety DC BuSpar; did not seem to help much Schedule clonidine 0.1 mg b.i.d. Clonidine p.r.n. for anxiety Patient hypertensive; on max dose of amlodipine and losartan; will increase BP readings to t.i.d. and assess if needs additional antihypertensive (pt reports chronically elevated) 12/21/24: Continue current plans and regimen Patient educated on: diagnosis, medication risk/benefits, therapeutic strategies and medical condition Informed Consent: understands Reason for continued inpatient stay Substantial Risk for: stable for discharge Time Spent With Patient Time: Total time managing care of this patient today ____ minutes.
[2024-12-24] MEDS: Acetaminophen 325 MG TABLET 975 MG PO ×2 (11:35→18:26)
[2024-12-24 11:36] VITALS: BP 115/68
[2024-12-24] MEDS: Nicotine 21 MG PATCH.TD24 TRANSDERMA (11:36)
[2024-12-24 13:02] LABS: Alanine Aminotransferase 54 U/L (0-40); Albumin Level 4.4 g/dL (3.5-5.0); Alkaline Phosphatase 77 U/L (39-117); Aspartate Amino Transferase 34 U/L (5-37); Bilirubin Direct 0.1 mg/dL (0.0-0.5); Bilirubin Total 0.3 mg/dL (0.0-1.0); Blood Urea Nitrogen 18 mg/dL (9-16); Creatinine Clr Calc Pharmacy 68.1; Estimated Glomerular Filt Rate > 60; Total Protein 7.3 g/dL (6.5-8.0)
[2024-12-24 17:18] VITALS: BP 132/80
[2024-12-24 20:00] VITALS: BP 125/58; PULSE 75; RESP 16; TEMP 36.8; O2SAT 97
[2024-12-24] MEDS: traZODone HCL 100 MG TABLET PO (22:24)
[2024-12-25 08:00] VITALS: BP 167/87; PULSE 66; RESP 16; TEMP 36.4; O2SAT 100
[2024-12-25] MEDS: Losartan Potassium 50 MG TABLET 100 MG PO (08:05)
[2024-12-25] MEDS: FLUoxetine HCl 20 MG CAPSULE 60 MG PO (08:06)
[2024-12-25] MEDS: amLODIPine Besylate 10 MG TABLET PO (08:06)
[2024-12-25] MEDS: OLANZapine 2.5 MG TABLET PO (08:06)
[2024-12-25] MEDS: cloNIDine HCL 0.1 MG TABLET PO (08:06)
[2024-12-25] MEDS: Acetaminophen 325 MG TABLET 975 MG PO (08:16)
--- NOTE | 2024-12-25 08:48 | P.DS_ITS ---
DS: Providers Provider Date of Service: 12/25/24 Date of admission: 12/18/24 16:13 Date of discharge: 12/25/24 [facility] Attending physician on admission: Winston Tee Attending physician on discharge: Winston Tee DS: Diagnosis Discharge Diagnosis (1) MDD (major depressive disorder), recurrent severe, without psychosis: Status: Acute (2) Anxiety disorder: Status: Acute (3) HTN (hypertension): Status: Resolved DS: Medications Discharge Medications Home Medications: Home Medications ?Medication ?Instructions ?Recorded ?Confirmed acetaminophen 500 mg capsule 1,000 mg PO BID PRN Pain 04/17/24 12/18/24 Previous Rx's ?Medication ?Instructions ?Recorded epinephrine 0.3 mg/0.3 mL 0.3 mg (0.3 mL) IM .q5min PRN 04/18/24 injection, auto-injector (EpiPen anaphylaxis #2 ea 2-Dre) amlodipine 10 mg tablet 10 mg PO DAILY 90 days #90 tabs 12/25/24 clonidine HCl 0.1 mg tablet See Rx Instructions .Route 12/25/24 .COMPLEX 30 days #120 tabs fluoxetine 20 mg capsule 60 mg (3 x 20 mg) PO DAILY 30 days 12/25/24 #90 caps losartan 100 mg tablet 100 mg PO DAILY 90 days #90 tabs 12/25/24 nicotine 21 mg/24 hr daily 21 mg transdermal DAILY PRN 12/25/24 transdermal patch smoking cessation 28 days #28 ea olanzapine 2.5 mg tablet 2.5 mg PO TID 30 days #90 tabs 12/25/24 trazodone 100 mg tablet See Rx Instructions .Route 12/25/24 .COMPLEX 30 days #45 tabs Mental Status Exam Mental Status Exam Narrative: Pt is alert and oriented; behavior is friendly, calm, cooperative, more social; patient is not in distress; dressed in casual attire, bald, adequate hygiene; mood is described as good and affect congruent, brighter, more calm; eye contact appropriate; Speech is with hint of a stutter; otherwise normal rate, volume and prosody and not pressured; no psychomotor retardation present; thought process is organized and goal directed; Thought content is on treatment; otherwise pertinent to relevant topics and without any other delusional content; denies any SI/HI/AVH; There is no evidence of perceptual disturbance. Patients insight and judgment fair. Data Data Completed and Pending Completed studies during hospitalization [Text1]: 12/18/24 12/18/24 12/19/24 10:24 10:44 08:09 WBC 9.8 RBC 4.34 L Hgb 12.8 L Hct 37.0 L MCV 85.3 MCH 29.5 MCHC 34.6 RDW 13.4 Plt Count 280 MPV 8.7 L Immature Gran % (Auto) 1.1 H Neut % (Auto) 68.3 Lymph % (Auto) 20.0 Elliott % (Auto) 10.0 Eos % (Auto) 0.1 Baso % (Auto) 0.5 Lymph # (Auto) 2.0 Elliott # (Auto) 1.0 Eos # (Auto) 0.0 Baso # (Auto) 0.1 Abs Immat Gran (auto) 0.11 H Absolute Neuts (auto) 6.7 Absolute Nucleated RBC 0.000 Nucleated RBC % (auto) 0.0 Sodium 140 Potassium 4.5 Chloride 107 Carbon Dioxide 24 Anion Gap 14 BUN 15 Creatinine 0.79 Estim Creat Clear Calc 89.7 Estimated GFR > 60 Random Glucose 106 Estimat Average Glucose 94 Hemoglobin A1c % 4.9 Calcium 9.8 Magnesium 1.9 Total Bilirubin 0.5 Direct Bilirubin AST 62 H ALT 71 H Alkaline Phosphatase 79 Total Protein 7.6 Albumin 4.6 Triglycerides 152 H Cholesterol 217 H LDL Cholesterol, Calc 92 HDL Cholesterol 95 Lipase 73 Urine Color Yellow Urine Appearance Clear Urine pH 6.0 Ur Specific [place] 1.015 Urine Protein Negative Urine Glucose (UA) Negative Urine Ketones Trace Urine Blood Negative Urine Nitrite Negative Ur Leukocyte Esterase Negative Salicylates < 5.0 L Urine Opiates Screen Not Detected Ur Buprenorphine Scrn Not Detected Ur Oxycodone Screen Not Detected Urine Methadone Screen Not Detected Urine Fentanyl Screen Not Detected Acetaminophen 4 Ur Barbiturates Screen Not Detected Ur Phencyclidine Scrn Not Detected Ur Amphetamines Screen Not Detected U Benzodiazepines Scrn Not Detected Urine Cocaine Screen Not Detected U Marijuana (THC) Screen POSITIVE H Ethyl Alcohol < 10 Influenza Type A (PCR) Influenza Type B (PCR) RSV RNA Qual (PCR) SARS-CoV-2 RNA (RT-PCR) 12/19/24 12/24/24 13:03 12:38 WBC RBC Hgb Hct MCV MCH MCHC RDW Plt Count MPV Immature Gran % (Auto) Neut % (Auto) Lymph % (Auto) Elliott % (Auto) Eos % (Auto) Baso % (Auto) Lymph # (Auto) Elliott # (Auto) Eos # (Auto) Baso # (Auto) Abs Immat Gran (auto) Absolute Neuts (auto) Absolute Nucleated RBC Nucleated RBC % (auto) Sodium Potassium Chloride Carbon Dioxide Anion Gap BUN 18 H Creatinine 1.04 Estim Creat Clear Calc 68.1 Estimated GFR > 60 Random Glucose Estimat Average Glucose Hemoglobin A1c % Calcium Magnesium Total Bilirubin 0.3 Direct Bilirubin 0.1 AST 34 ALT 54 H Alkaline Phosphatase 77 Total Protein 7.3 Albumin 4.4 Triglycerides Cholesterol LDL Cholesterol, Calc HDL Cholesterol Lipase Urine Color Urine Appearance Urine pH Ur Specific [place] Urine Protein Urine Glucose (UA) Urine Ketones Urine Blood Urine Nitrite Ur Leukocyte Esterase Salicylates Urine Opiates Screen Ur Buprenorphine Scrn Ur Oxycodone Screen Urine Methadone Screen Urine Fentanyl Screen Acetaminophen Ur Barbiturates Screen Ur Phencyclidine Scrn Ur Amphetamines Screen U Benzodiazepines Scrn Urine Cocaine Screen U Marijuana (THC) Screen Ethyl Alcohol Influenza Type A (PCR) NEGATIVE Influenza Type B (PCR) NEGATIVE RSV RNA Qual (PCR) NEGATIVE SARS-CoV-2 RNA (RT-PCR) NEGATIVE DS: Summary Hospital Course Hospital Course: Patient is a 59-year-old male with history of MDD severe anxiety with agoraphobia, who presents for worsening depression in the face of being off Prozac for the past 2 weeks. Patient reports that for the past 4 months, since , he has been depressed and mostly staying by himself; he endorses diminished interest, low energy, poor concentration, low appetite, increase difficulty sleeping, though no SI; patient reports that this is chronic and happens every here starting at the holiday season and thus he is used to it and patient generally pushes himself through it, still going out of the house for errands and sometimes to meet with friends. About 2 weeks ago however, his PCP decided to stop prescribing his Prozac; patient's depression significantly worsened and now he was no longer getting out of bed, not attending to ADLs, not leaving the house at all and becoming increasingly overwhelmed with despondency and hopelessness, and thus self presented. Patient denies any SI. Patient endorses long history of anxiety back to teenage years; patient struggles going out in public or interacting with other people, worried that people are judging him or staring at him; patient knows this is not true but can not help feeling this way. 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 Denies AVH; denies history of manic type behaviors or episodes; some emotional trauma hx from adult, romantic relationships Formulation/clinical reasoning: On admission, patient was quite depressed and extremely anxious. Most of his anxiety revolved around social anxiety, feeling anxious when around or interacting with people, and worried he was being judged or that people were thinking poorly of him. He did not seem to have intrusive thoughts of an OCD nature and did not seem to worry about other topics; OCD and DEANGELO remained rule outs. Patient does have several ADHD inattentive type symptoms however this could be due to the distractions caused by continuous anxious worries. Patient reports that the combination of Prozac 40 mg and BuSpar 7.5 mg b.i.d., has helped partially lower anxiety and depression however he remains with significant symptoms and continues to have 4 months of moderate to severe depression starting in August (patient does not think it is SAD). He has had other medication trials but does not remember. Patient keeps losing psychiatrists because he is too anxious to make the therapy appointments and is categorized as a no-show. -Will restart patient on Prozac and increase to 60 mg; patient not sure if BuSpar ever made any difference. Patient remained feeling extremely anxious; clonidine did help which was scheduled and used as a p.r.n. and was effective in treating his continued hypertension and blood pressures returned to WNL. Patient tolerated increase Prozac dose however remained miserable due to anxiety and so Zyprexa was tried which was found effective and scheduled at 2.5 mg t.i.d.. On this regimen, with groups and one-to-one meetings, patient significantly improved. Depression abated and anxiety was significantly reduced to the point where patient felt comfortable not on going to groups but sharing in groups, interacting in the milieu and feeling very optimistic about his future ability to enjoy his life. Patient continued to remain in good mood. He was in good behavioral and impulse control and appropriate with peers and staff. Patient felt ready for discharge. He was not in imminent risk for harm to self or others and ap propriate to return to the community for treatment. Medications: Increase Prozac to 60 mg Started Zyprexa 2.5 mg t.i.d. Started clonidine 0.1 mg b.i.d. with extra as p.r.n. for anxiety Discontinued BuSpar Time spent discussing smoking cessation with patient: 3 to 10 minutes Status at Discharge Functional status at discharge: independent ambulation Overall status at discharge: patient is back to baseline Time Spent with Patient Time attestation: Total time managing care of this patient today _40___ minutes. Time spent: Greater than 30 minutes Specific discharge activities: Met with patient; discussed with team; prescriptions and charting Discharge Plan Discharge Anticipated Discharge Date/Time: 12/25/24 11:30 Patient Disposition: Home, Self-Care Discharge Diagnosis: MDD, recurrent, severe without psychosis, in full remission Referrals: Cecilio Ramirez, [facility] [Primary Care Provider] - 1 Week Discharge Medications: New nicotine 21 mg/24 hr Patch 24 Hour 21 mg transdermal DAILY PRN (Reason: smoking cessation) 28 Days Qty: 28 1RF clonidine HCl 0.1 mg Tablet See Rx Instructions .ROUTE .COMPLEX 30 Days Qty: 120 1RF Protocol: Hold for SBP< HOLD for SBP < : 90 Rx Instructions: Take 1 tab every morning and 1 tab at bedtime; may also take 2 tabs as needed throughout the day for anxiety fluoxetine 20 mg Capsule 60 mg PO DAILY 30 Days Qty: 90 1RF olanzapine 2.5 mg Tablet 2.5 mg PO TID 30 Days Qty: 90 1RF trazodone 100 mg Tablet See Rx Instructions .ROUTE .COMPLEX 30 Days Qty: 45 1RF Rx Instructions: Take 1 tab at bedtime; may take an additional 1/2 tab as needed for continued insomnia Continued acetaminophen 500 mg Capsule 1,000 mg PO BID PRN (Reason: Pain) epinephrine [EpiPen 2-Dre] 0.3 mg/0.3 mL auto-injector 0.3 mg IM .q5min PRN (Reason: anaphylaxis) Qty: 2 11RF amlodipine 10 mg tablet 10 mg PO DAILY 90 Days Qty: 90 0RF losartan 100 mg tablet 100 mg PO DAILY 90 Days Qty: 90 0RF Discontinued buspirone 7.5 mg tablet 7.5 mg PO BID 30 Days Qty: 60 2RF Discharge Orders: Discharge Order (Routine); Ordered 12/25/24 Ordered By: Winston Tee Diet: Regular diet Activity on Discharge: As tolerated Stand Alone Forms: Patient Portal Discharge page Print Language: Chinese Care Plan Goals: Maintain mood and safe behaviors Take medications as prescribed Practice coping skills Continue with outpatient providers and reach out to them as needed Health Concerns: Mood stability and behaviors Hypertension Plan of Treatment: Follow up with your PCP, psychiatric provider and other outpatient providers regarding above concerns Take medications as prescribed Assessment: Risk assessment at time of discharge:? Patient was interviewed prior to discharge and found to be fully oriented and without any SI or HI. Patient has improved insight and judgment and wants to continue treatment. Patient is not in imminent risk of harm to self or others and has a safety plan that includes presenting to the closest ER or calling 911 if feeling unsafe.? Patient has been observed closely by nursing and unit staff throughout admission; patient has not engaged in any behaviors that suggest dangerousness to self or others and has demonstrated appropriate behaviors and impulse control
== END 2024-12-25 11:48 | disposition home or self-care (01) | DRG 885 ==
LOC: HO.ED 15:53 → HO.PM5 16:20
PROVIDERS: Physician Assistant Medical; Admitting Provider Psychiatry & Neurology Psychiatry; Emergency Provider Emergency Medicine; PCP Nurse Practitioner Family; Visit Provider Psychiatry & Neurology Psychiatry
DX: F33.2 Major depressive disorder, recurrent severe without psychotic features (principal); F17.210 Nicotine dependence, cigarettes, uncomplicated; F41.9 Anxiety disorder, unspecified; I10 Essential (primary) hypertension; Z71.6 Tobacco abuse counseling; Z20.822 Contact with and (suspected) exposure to COVID-19; Z79.899 Other long term (current) drug therapy
CPT/HCPCS: 0241U; 36415; 80053; 80061; 80076; 80143; 80179; 80307; 81003; 82565; 83036; 83690; 83735; 84153; 84443; 84520; 85025; 93005; 99285; S9485

== ENCOUNTER → 2024-12-18 13:56 | Outpatient (BNV) | payer OTHER, SELFPAY | PROVIDERS: Emergency Provider Emergency Medicine; PCP Nurse Practitioner Family; Visit Provider Internal Medicine Cardiovascular Disease | DX: R07.9 Chest pain, unspecified (principal); R94.31 Abnormal electrocardiogram [ECG] [EKG] | CPT/HCPCS: 93010 ==

== ENCOUNTER → 2024-12-18 16:13 | Outpatient (BNV) | payer OTHER, SELFPAY | PROVIDERS: Admitting Provider Psychiatry & Neurology Psychiatry; Emergency Provider Emergency Medicine; PCP Nurse Practitioner Family; Visit Provider Psychiatry & Neurology Psychiatry | DX: F33.2 Major depressive disorder, recurrent severe without psychotic features (principal); F41.9 Anxiety disorder, unspecified; I10 Essential (primary) hypertension | CPT/HCPCS: 90792; 99232 ==

== ENCOUNTER 2024-12-25 12:51 | Outpatient (RCR) | payer OTHER, SELFPAY | END 2024-12-26 11:16 | disposition home or self-care (01) | LOC: HO.PHPA 12:51 | PROVIDERS: Visit Provider Psychiatry & Neurology Psychiatry | DX: F41.9 Anxiety disorder, unspecified (principal); F32.A Depression, unspecified; F43.10 Post-traumatic stress disorder, unspecified ==

== ENCOUNTER 2025-01-21 08:17 | Outpatient (REF) | payer OTHER, SELFPAY ==
--- NOTE | ~2025-01-21 | US_ITS ---
EXAMINATION: US ABDOMEN COMPLETE CLINICAL INFORMATION: Elevated liver enzymes.. COMPARISON: None available. TECHNIQUE: Real-time imaging of the abdominal viscera. FINDINGS: PANCREAS: No peripancreatic fluid collections. No main pancreatic duct measures 1 mm. ABDOMINAL AORTA: The proximal, mid, and distal segments are normal in caliber. INFERIOR VENA CAVA: Visualized portions are normal. LIVER: Liver measures 18 cm. Increased echotexture. No nodular surface. No solid or cystic lesion detected by the generation technologist. No intrahepatic biliary ductal dilatation. GALLBLADDER: Fluid-filled. No pericholecystic fluid collection or gallbladder wall thickening. COMMON BILE DUCT: 3 mm. RIGHT KIDNEY: 11 cm. Normal echotexture. Normal renal cortical thickness. No hydronephrosis. No solid or cystic lesion. Normal flow on color Doppler interrogation of the renal hilum. LEFT KIDNEY: 8 cm. Normal echotexture. Normal renal cortical thickness. No hydronephrosis. No solid or cystic lesion. Normal flow on color Doppler interrogation of the renal hilum. SPLEEN: 8 cm. No focal lesion.. FREE FLUID: None. US/US abdomen complete IMPRESSION: Hepatomegaly and likely steatosis. No cholelithiasis. No hydronephrosis. No ascites. Electronically signed by: Rocco Andujar MD 01/21/2025 09:04 AM EDT
--- OUTSIDE RECORDS SUMMARY | 2025-01-21 08:32 | XMS_ITS | Clinical Summary ---
Author Organization [facility] ity Address [address] [place] [address] Care Team Providers Care Business Performance Manager Name Role Phone Unavailable Primary Care Provider [...] - 2023-2 5 season) 2024 Influenza Vaccine (Season Ended) 2025 HIB Vaccines Aged Out No longer eligi [...] age to complete this topic Meningococcal B Vaccine Aged Out No l onger eligible based on patient's age to complete [...]
== END 2025-01-21 08:18 | disposition home or self-care (01) ==
LOC: HO.HMGCX 08:17
PROVIDERS: PCP Nurse Practitioner Family; Visit Provider Nurse Practitioner Family
DX: R74.8 Abnormal levels of other serum enzymes (principal)
CPT/HCPCS: 76700

== ENCOUNTER → 2025-01-21 08:20 | Outpatient (BNV) | payer OTHER, SELFPAY | PROVIDERS: PCP Nurse Practitioner Family; Visit Provider Radiology Diagnostic Radiology | DX: R74.01 Elevation of levels of liver transaminase levels (principal); R16.0 Hepatomegaly, not elsewhere classified | CPT/HCPCS: 76700 ==

== ENCOUNTER 2025-05-13 08:52 | Outpatient (AMB) | payer OTHER, SELFPAY ==
--- OUTSIDE RECORDS SUMMARY | 2025-05-13 09:07 | XMS_ITS | Clinical Summary ---
Author Organization [facility] ity Address [address] [place] [address] Care Team Providers Care Belly Dump Driver Name Role Phone Unavailable Primary Care Provider [...] Vaccine ( - 2023-2 5 season) 2024 Depression Screening 10/16/2024 Influenza Vaccine (#1) 2025 HIB Vaccines Aged Out No longer [...]
[2025-05-13 09:10] VITALS: BP 120/74; PULSE 76; TEMP 36.6; O2SAT 97
--- NOTE | 2025-05-13 09:10 | MHC.OFFWIV ---
Intake Vital Signs 05/13/25 09:10 Height 5 ft 5 in Weight 180 lb 4 oz BMI 30.0 BP 120/74 Blood Pressure Location Rt brachial Position Sitting Pulse 76 Pulse Source Pulse Oximeter Temp 97.9 F Temp Source Oral Pulse Oximetry (%) 97 Oxygen Delivery Method Room Air Intake Visit Reasons: EP BP medication Patient Tobacco Use Status: Current everyday Tobacco user Therapeutic Massage Technician Required: No Allergies bee pollen (bee stings) Allergy (Verified 12/18/24 09:59) Swelling Do you need a note to return to daycare/school/sports/work: No HPI HPI Comments History of Present Illness Details History of Present Illness - The patient is a 59-year-old male presenting with a need for a refill of blood pressure medication. - Previously on amlodipine and losartan for hypertension. - No blood pressure medication taken since November, post-hospital discharge. - Reports headaches, potentially linked to uncontrolled hypertension. - Hospitalized for seven days in December; continuation of medications noted but not executed. - He does not have a log of his blood pressures. - He denies CP, SOB, visual changes, or edema. Physical Exam General: Cooperative, healthy appearing, comfortable, no acute distress and well developed Eyes: Appearance normal, both eyes and all related structures Neck: Normal visual inspection and Yes full ROM. No carotid bruits noted. Respiratory: Normal respiratory effort and able to speak in complete sentences. Clear to auscultation bilaterally Cardiovascular: Regular rate and rhythm. Normal S1 and S2 Skin: No rashes or lesions noted Neuro: Patient oriented x3 Extremities: Normal to inspection. No edema noted. Patient was informed and verbally consented to the use of an ambient scribe for clinic note documentation during this visit. [facility] Medical History (Updated 01/21/25 @ 09:10 by Cecilio Ramirez, [facility]) Anxiety disorder MDD (major depressive disorder), recurrent severe, without psychosis HTN (hypertension) Dyslipidemia Anemia Nicotine dependence, cigarettes, uncomplicated Anxiety and depression History of ATN Stuttering Dislocation of right shoulder joint Surgical History History of excision of lesion Family History Mother Breast cancer HTN (hypertension) Father Unknown family medical history Social History Household Members: None Household Members Other:: lives alone Housing: Apartment Do you presently have visiting nurse or other home services: No Alcohol intake: current Alcohol intake frequency: 0-2 drinks per day Alcohol type: beer Patient Tobacco Use Status: Current everyday Tobacco user Tobacco use type: Cigarette Cigarette Packs Per Day: 1 Cigarettes Per Day: 20.0 e-Cigarette/Vaping Use: Never Used Second Hand Smoke Exposure: No Substance Use Type: Marijuana service: No Current occupational status: unemployed and disabled 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 Sexual orientation: Straight/Heterosexual Cognitive needs: No Hearing needs: No Vision needs: No Review of Systems Const All systems reviewed & are unremarkable except as noted in HPI and below Physical Exam Vital Signs: Last Vital Signs Temp 97.9 F 05/13/25 09:10 Pulse 76 05/13/25 09:10 BP 120/74 05/13/25 09:10 Pulse Ox 97 05/13/25 09:10 Oxygen Delivery Method Room Air 05/13/25 09:10 BMI result Body Mass Index 30.0 Assessment & Plan Assessment & Plan (1) HTN (hypertension): Code(s): I10 - Essential (primary) hypertension Qualifiers: Hypertension type: primary hypertension Qualified Code(s): I10 - Essential (primary) hypertension Plan Most likely HTN Plan - Refill prescriptions for amlodipine and losartan to manage hypertension. - low salt diet - Schedule follow-up appointment with primary care physician to reassess blood pressure management. - Monitor blood pressure at home to ensure control and adjust medications as needed. Medications: Refilled amlodipine 10 mg PO DAILY 90 tabs 0RF 90 days losartan 100 mg PO DAILY 90 tabs 0RF 90 days Coding Level of Care Code Est Pt Level 3 (24256) Diagnoses Primary hypertension I10 Hypertension type: primary hypertension
== END 2025-05-13 10:26 | disposition home or self-care (01) ==
PROVIDERS: PCP Nurse Practitioner Family; Visit Provider Physician Assistant Medical
DX: I10 Essential (primary) hypertension (principal)

== ENCOUNTER → 2025-05-13 08:52 | Outpatient (BNVA) | payer OTHER, SELFPAY | PROVIDERS: PCP Nurse Practitioner Family; Visit Provider Physician Assistant Medical | DX: I10 Essential (primary) hypertension (principal); Z79.899 Other long term (current) drug therapy | CPT/HCPCS: 99212 ==

== ENCOUNTER 2025-08-04 10:04 | Outpatient (AMB) | payer OTHER, SELFPAY ==
--- NOTE | 2025-08-04 10:17 | A.OFFPC_ITS ---
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 Required: No Accompanied by: Self / Same As Patient Allergies bee pollen (bee stings) Allergy (Verified 08/04/25 10:21) Swelling Medication List - Last Reconciled 08/04/25 by JEZ Ashraf- acetaminophen 1,000 mg PO BID PRN amlodipine 10 mg PO DAILY 90 days clonidine HCl See Protocol Take 1 tab every morning and 1 tab at bedtime; may also take 2 tabs as needed throughout the day for anxiety 30 days epinephrine (EpiPen 2-Dre) 0.3 mg (0.3 mL) IM .q5min PRN fluoxetine 60 mg (3 x 20 mg) PO DAILY 30 days losartan 100 mg PO DAILY 90 days olanzapine 2.5 mg PO TID 30 days trazodone Take 1 tab at bedtime; may take an additional 1/2 tab as needed for continued insomnia 30 days Tobacco use date assessed: 08/04/25 Dental Screening Dental Screen Date: 08/04/25 Did you have a dental visit in the last 12 months?: Yes Did you have a dental problem in the last 6 months where you did not have access to dental care?: No Was dental information given to patient?: Patient has dentist HPI follow up HTN HPI Details Chief Complaint The patient presents for follow-up on hypertension management. History of Present Illness The patient is a 59-year-old male presenting with a follow-up for hypertension management. He denies experiencing any chest pain, increased dyspnea, headache, blurred vision, or dizziness, indicating stable blood pressure control. The patient is under the care of a therapist and a psychiatrist and is currently on psychiatric medications. He reports feeling significantly more stable with his mental health status. Social History Health Maintenance Review of Systems - Cardiovascular: Denies chest pain - Respiratory: Denies increased dyspnea - Neurological: Denies headache, blurred vision, dizziness -denies any si or hi Physical Exam General: Cooperative, healthy appearing, comfortable, no acute distress and well developed Orientation: Patient oriented x3 Limitations: No limitations Head: Normal to inspection Ears: Hearing grossly normal bilaterally Nose: Normal external nose present Face and sinus: Normal facial exam Eyes: Appearance normal, both eyes and all related structures Neck: Normal visual inspection and Yes full ROM Respiratory: Normal respiratory effort and able to speak in complete sentences. Clear to auscultation bilaterally Cardiovascular: Regular rate and rhythm. Normal S1 and S2 GI: Normal to inspection. Soft to palpation and nontender Skin: No rashes or lesions noted Neuro: Patient oriented x3 Extremities: Normal to inspection, no edema noted Results Plan 1. Essential Hypertension The patient's hypertension is currently well-controlled, with no reported symptoms such as chest pain, dyspnea, headache, blurred vision, or dizziness. Blood pressure monitoring will continue, and laboratory tests will be conducted in the near future to ensure ongoing stability. 2. Mental Health Stability The patient is under psychiatric care and reports improved stability with current psychiatric medications. Continued follow-up with mental health professionals is advised to maintain this stability. Discussion Notes Patient Instructions [facility] Medical History HTN (hypertension) Anxiety disorder MDD (major depressive disorder), recurrent severe, without psychosis Dyslipidemia Anemia Nicotine dependence, cigarettes, uncomplicated Anxiety and depression History of ATN Stuttering Dislocation of right shoulder joint Surgical History History of excision of lesion Family History Mother Breast cancer HTN (hypertension) Father Unknown family medical history Social History Household Members: None Household Members Other:: lives alone Housing: Apartment Do you presently have visiting nurse or other home services: No Alcohol intake: current Alcohol intake frequency: 0-2 drinks per day Alcohol type: beer Patient Tobacco Use Status: Current everyday Tobacco user Tobacco use type: Cigarette Cigarette Packs Per Day: 1 Cigarettes Per Day: 20.0 e-Cigarette/Vaping Use: Never Used Second Hand Smoke Exposure: No Substance Use Type: Marijuana service: No Current occupational status: unemployed and disabled 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 1. Little interest or pleasure in doing things: not at all 2. Feeling down, depressed, or hopeless: not at all 3. Trouble falling or staying asleep, or sleeping too much: not at all 4. Feeling tired or having little energy: not at all 5. Poor appetite or overeating: not at all 6. Feeling bad about yourself - or that you are a failure or have let yourself or your family down: more than half the days 7. Trouble concentrating on things, such as reading the newspaper or watching television: not at all 8. Moving or speaking so slowly that other people could have noticed. Or the opposite - being so fidgety or restless that you have been moving around a lot more than usual: not at all 9. Thoughts that you would be better off or of hurting yourself in some way: not at all Total score: 2 Depression Screening Interpretation: Negative Depression Screening Done: Yes 24004 - PHQ-9 Billing: Yes Source: Developed by Drs. Lj Sheridan, Olga Leung, Miky Delaney and colleagues, with an educational broderick from [employer]. Thrive Questionnaire Date Thrive assessed: 12/17/24 I am a: Patient What is your living situation today?: I have a place to live, but I am worried about losing it in the future Within the past 12 months, did the food you bought not last and you didn't have the money to get more?: Never true Within the past 12 months, did you worry whether your food would run out before you got money to buy more?: Never true Do you have trouble paying for medicines?: No Do you have trouble getting transportation to medical appointments?: No Do you have trouble paying your heating and electricity bill?: No Do you have trouble taking care of your child, family member or friend?: No Do you have trouble with day-to-day activities such as bathing, preparing meals, shopping, managing finances, etc.?: No Are you currently unemployed and looking for a job?: No Are you interested in more education?: No Please select the resources that you would like help with: Housing/[facility] Currently or been in a relationship where the following occur: No concerns reported THRIVE Score: 1 DEANGELO-7 AMB Questionnaire DEANGELO-7 Date DEANGELO - 7 assessed: 12/17/24 Feeling nervous, anxious, or on edge: 1 = Several days Not being able to stop or control worryin = Several days Worrying too much about different things: 1 = Several days Trouble relaxin = Several days Being so restless that it is hard to sit still: 0 = Not at all Becoming easily annoyed or irritable: 0 = Not at all Feeling afraid as if something awful might happen: 1 = Several days Total DEANGELO-7 score (0-4 normal; 5-9 mild; 10-14 moderate; 15-21 severe): 5 Source: Developed by Drs. Lj Sheridan, Olga Leung, Miky Delaney and colleagues, with an educational broderick from [employer]. DEANGELO-7 Assessment Billing DEANGELO-7 Assessment Tool: DEANGELO-7 Assessment 18146 Physical exam (Primary Care) Vital Signs: Last Vital Signs Pulse 88 08/04/25 10:18 Resp 16 08/04/25 10:18 BP 122/76 08/04/25 10:18 Pulse Ox 96 08/04/25 10:18 Oxygen Delivery Method Room Air 08/04/25 10:18 BMI result Body Mass Index 29.1 Tobacco/Smoking Status: Tobacco use Status Tobacco use date assessed 08/04/25 08/04/25 10:25 Patient Tobacco Use Status Current everyday Tobacco 08/04/25 10:25 Tobacco use type Cigarette 08/04/25 10:25 e-Cigarette/Vaping Use Never Used 08/04/25 10:25 PHQ-9: PHQ-9 Score PHQ-9: Total score 2 08/04/25 11:00 Depression Screening Interpretation: Negative Thrive Assessment: Date of Thrive Assessment Date Thrive assessed 12/17/24 08/04/25 10:25 Currently or been in a relationship where the following occur: No concerns r eported Coding Level of Care Code Est Pt Level 3 (59129) Diagnoses HTN (hypertension) I10 Anxiety and depression F41.9; F32.9 Additional Codes DEANGELO-7 Assessment Billing - DEANGELO-7 Assessment Tool: DEANGELO-7 Assessment 50427 ([id number]) PHQ-9 - 23832 - PHQ-9 Billing: Yes ([id number]) Assessment & Plan Assessment & Plan (1) HTN (hypertension): Code(s): I10 - Essential (primary) hypertension Category: Medical (2) Anxiety and depression: Code(s): F41.9 - Anxiety disorder, unspecified; F32.9 - Major depressive disorder, single episode, unspecified Category: Medical Plan . Orders: Orders Complete Blood Count Auto Diff Today I10 - Essential (primary) hypertension [facility] [place]. Panel Fast Today I10 - Essential (primary) hypertension Lipid Panel Today I10 - Essential (primary) hypertension TSH reflex Free T4 Today I10 - Essential (primary) hypertension UA CC w/rflx Micro + Cult Today I10 - Essential (primary) hypertension Referrals Cologuard Test Z12.11 - Encounter for screening for malignant neoplasm of colon, Z12.12 - Encounter for screening for malignant neoplasm of rectum
[2025-08-04 10:18] VITALS: BP 122/76; PULSE 88; RESP 16; O2SAT 96; BMI 29.1
--- OUTSIDE RECORDS SUMMARY | 2025-08-04 11:33 | XMS_ITS | Clinical Summary ---
Author Organization [facility] ity Address [address] [place] [address] Care Team Providers Care Hand Salter Name Role Phone Unavailable Primary Care Provider [...] 2017 Zoster Vaccines (1 of 2) 2017 Depression Screening 10/16/2024 COVID-19 Vaccine (1 - 2023-2 5 season) 2025 Influenza Vaccine (#1) 2025 RSV Immunization Adult Patie nts (1 - 1-dose 75+ series) 2042 HIB Vaccines Aged Out No longer eligi [...]
== END 2025-08-04 10:59 | disposition home or self-care (01) ==
LOC: HO.HMCC 10:05
PROVIDERS: PCP Nurse Practitioner Family; Visit Provider Nurse Practitioner Family
DX: I10 Essential (primary) hypertension (principal); F41.9 Anxiety disorder, unspecified; F32.9 Major depressive disorder, single episode, unspecified

== ENCOUNTER → 2025-08-04 10:04 | Outpatient (BNVA) | payer OTHER, SELFPAY | PROVIDERS: PCP Nurse Practitioner Family; Visit Provider Nurse Practitioner Family | DX: I10 Essential (primary) hypertension (principal); F41.9 Anxiety disorder, unspecified; F32.9 Major depressive disorder, single episode, unspecified | CPT/HCPCS: 96127; 99212 ==